=== PATIENT | female | born 1985 | race Caucasian/White ===

== ENCOUNTER 2023-01-25 10:09 | Outpatient (REF) | payer BC, SELFPAY ==
[2023-01-25 11:17] LABS: MANUAL DIFF FLAG NO
[2023-01-25 11:48] LABS: Basophils Percent Auto 0.3 % (0-2); Eosinophils Absolute Auto 0.1 X10*3/uL (0.0-0.4); Eosinophils Percent Auto 1.2 % (0-4); Hematocrit 42.6 % (37.0-47.0); Hemoglobin 14.6 g/dl (12.0-16.0); Imm Gran Abs Auto 0.06 X10*3/uL (0.00-0.03); Imm Gran Pct Auto 0.5 % (0.0-0.4); Lymphocytes Absolute Auto 2.8 X10*3/uL (1.2-4.9); Lymphocytes Percent Auto 23.4 % (20-40); Mean Corpuscular HGB Conc 34.3 g/dl (31.0-35.0); Mean Corpuscular Hemoglobin 32.4 pg (27.0-33.0); Mean Corpuscular Volume 94.5 fL (80.0-98.0); Mean Platelet Volume 10.2 fL (9.4-12.3); Monocytes Absolute Auto 0.6 X10*3/uL (0.1-1.2); Monocytes Percent Auto 4.8 % (2-11); Neutrophils Absolute Auto 8.4 x10*3/uL (2.0-8.3); Neutrophils Percent Auto 69.8 % (45-73); Platelet Count 291 X10*3/uL (160-400); Red Blood Count 4.51 X10*6/uL (4.20-5.50); Red Cell Distribution Width 14.2 % (11.0-16.0)
[2023-01-25 12:19] LABS: Alanine Aminotransferase 15 U/L (0-31); Albumin Level 4.1 g/dL (3.5-5.0); Alkaline Phosphatase 85 U/L (39-117); Anion Gap 13 (12-20); Aspartate Amino Transferase 13 U/L (5-31); Bilirubin Total 0.9 mg/dL (0.0-1.0); Blood Urea Nitrogen 14 mg/dL (9-16); Calcium 8.7 mg/dL (8.4-10.2); Carbon Dioxide 22 mmol/L (22-29); Chloride 111 mmol/L (96-108); Cholesterol 204 mg/dL; Estimated Glomerular Filt Rate > 60; Glucose Fasting 93 mg/dL (60-99); HDL Cholesterol 35 mg/dL; LDL Cholesterol Calculated 128 mg/dl; Sodium 142 mmol/L (135-145); Total Protein 6.5 g/dL (6.5-8.0); Triglycerides 209 mg/dL
[2023-01-25 12:20] LABS: TSH reflex Free T4 0.93 uIU/mL (0.32-4.0)
== END 2023-01-25 10:10 | disposition home or self-care (01) ==
LOC: HO.HMGCLDS 10:09
PROVIDERS: PCP Internal Medicine; Visit Provider Internal Medicine
DX: Z00.01 Encounter for general adult medical examination with abnormal findings (principal); R03.0 Elevated blood-pressure reading, without diagnosis of hypertension; E66.09 Other obesity due to excess calories; Z83.49 Family history of other endocrine, nutritional and metabolic diseases
CPT/HCPCS: 36415; 80053; 80061; 84443; 85025

== ENCOUNTER 2023-06-12 11:19 | Outpatient (AMB) | payer BC, SELFPAY ==
--- NOTE | 2023-06-12 11:20 | MHC.OFFVIS ---
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 And has a few days break before she starts again review of her cycles revealed that her March. Came April 15 to April 19 then her April. Came May 03 to May 07 with spotting on the her. Started May 27 and continued to the with spotting on June 01. She had a tubal ligation 15 years ago after the of her daughter in [facility]. She has lived out here for about 9 years she has not had a pelvic exam and Pap smear and that length of time she sees her primary care provider and she has had some elevated blood pressures but today's was okay she is under lot of stress with her 15-year-old daughter who is having behavioral issues and school challenges. She also has questions about whether not she could ever have a baby with IVF. She would like to do something about her periods as they are so challenging. She smokes some days can be half pack on stressful days could be up to a pack a day. Father of her daughter just this year from a thromboembolic event. [facility] Surgical History (Updated 06/12/23 @ 13:12 by Leena Coats CNM) Hx of tubal ligation Family History Daughter Anxiety ADHD Depression Mother Substance use disorder Social History Housing: House Patient Tobacco Use Status: Current everyday Tobacco user Tobacco use type: Cigarette Cigarettes Per Day: 10 e-Cigarette/Vaping Use: Never Used service: No Current occupational status: employed Current occupational exposures/hazards: No Cognitive needs: No Hearing needs: No Vision needs: Yes Female Reproductive History Menstrual Date of last menstrual period: 05/27/23 Total pregnancies: 1 Number of Living Children: 1 Physical Exam Vital Signs: Last Vital Signs BP 118/80 06/12/23 11:21 BMI result Body Mass Index 25.2 Const General: healthy appearing, comfortable, no acute distress, well developed and alert Nutritional Appearance: average body habitus Orientation/consciousness: patient oriented x3 Limitations: no limitations HEENT Head: Yes normocephalic Neck Neck: Yes normal visual inspection Thyroid: Thyroid normal Chest Chest palpation & inspection: normal inspection of the chest Breast/axilla inspection: normal inspection of the breasts and normal inspection of the axillae Breast/axilla palpation: normal palpation of the breasts and normal palpation of the axillae Resp Effort & Inspection: normal respiratory effort GI Inspection: Yes normal to inspection, No Abdominal wall edema and No distended Palpation (GI): Soft to palpation and nontender Other: Completely normal speech speculum and Ballesteros pelvic exam. there is a slight malodor to the discharge. Cervix is multiparous nontender midposition. Uterus is anteverted small mobile nontender adnexa small no masses. General: Yes bladder normal to palpation External Female Exam: normal external appearance and normal appearance of the urethra Speculum Exam - Vagina: normal appearance of the vagina, normal palpation and normal vaginal discharge Speculum Exam - Cervix: normal appearance of the cervix, normal palpation and nontender Bimanual exam- vagina & uterus: normal bimanual exam, normal palpation, uterine size normal, bladder normal to palpation, consistency normal, normal palpation, uterine mobility normal, uterine shape normal, No Cervical tenderness present, non-tender and no cervical motion tenderness Bimanual Exam- Adnexa, other: normal adnexae, no masses, normal and No adnexal tenderness Neuro General: patient oriented x3 Assessment & Plan Assessment & Plan (1) Cervical cancer screening: Code(s): Z12.4 - Encounter for screening for malignant neoplasm of cervix (2) Screen for sexually transmitted diseases: Code(s): Z11.3 - Encounter for screening for infections with a predominantly sexual mode of transmission (3) Abnormal short menstrual cycle: Code(s): N92.6 - Irregular menstruation, unspecified Plan -----Discussed in this visit the following: healthy balanced diet, regular and consistent exercise, getting recommended health screens, doing the best she can for her particular health concerns, kegel exercises, pap smear screening and followup recommendations, mammography screening and SBE, normal changes in cycles in her life stage--- . Discussed her cycle at length discussed the options of control pills and Mirena to both manage the menses she has used Norplant in the past for control so she was familiar with some hormonal methods of control. However she smokes an on some days she is a heavy smoker. She has a lot of stress in her life right now. Discussed her menses at some detail the possible best option at this point is a Mirena IU S which she declined to have written information about could she is fairly well-versed in it. Discussed the importance of insertion with the heaviest days at the beginning of her period. She will call with the beginning of her next period and try to get in for an insertion. Discussed all the many stressors of parenting teenagers and she is exploring her options for her child's educational support. Orders: Orders Bacterial Vaginosis Panel Today Z01.419 - Encounter for gynecological examination (general) (routine) without abnormal findings CT NG by PCR Today Z01.419 - Encounter for gynecological examination (general) (routine) without abnormal findings Pap Smear Today Z01.419 - Encounter for gynecological examination (general) (routine) without abnormal findings Coding Level of Care Code New Pt Prev Care 18-39yr([id number] Diagnoses Cervical cancer screening Z12.4 Screen for sexually transmitted diseases Z11.3 Abnormal short menstrual cycle N92.6
[2023-06-12 11:21] VITALS: BP 118/80; BMI 25.2
== END 2023-06-12 13:37 | disposition home or self-care (01) ==
LOC: HO.HWS 11:19
PROVIDERS: PCP Internal Medicine; Visit Provider Advanced Practice Midwife
DX: Z01.419 Encounter for gynecological examination (general) (routine) without abnormal findings (principal); Z11.3 Encounter for screening for infections with a predominantly sexual mode of transmission; N92.6 Irregular menstruation, unspecified
CPT/HCPCS: 99385

== ENCOUNTER 2023-06-12 11:19 | Outpatient (REF) | payer BC, SELFPAY ==
[2023-06-12 16:29] LABS: CT PCR NOT DETECTED (Not Detect.); NG PCR NOT DETECTED (Not Detect.)
[2023-06-13 10:45] LABS: BV Int Neg Control Negative (Negative); BV Int Pos Control Positive (Positive)
[2023-06-14 21:53] LABS: HPV mRNA E6/E7 rflx Not Detected (Not Detected)
== END 2023-06-12 11:20 | disposition home or self-care (01) ==
LOC: HO.LNP 11:19
PROVIDERS: PCP Internal Medicine; Visit Provider Advanced Practice Midwife
DX: Z01.419 Encounter for gynecological examination (general) (routine) without abnormal findings (principal); Z11.51 Encounter for screening for human papillomavirus (HPV); Z20.2 Contact with and (suspected) exposure to infections with a predominantly sexual mode of transmission
CPT/HCPCS: 0353U; 87480; 87510; 87624; 87660; 88142

== ENCOUNTER 2024-01-29 15:32 | Outpatient (AMB) | payer BC, SELFPAY ==
[2024-01-29 15:36] VITALS: BP 120/78; PULSE 82; O2SAT 98; BMI 23.2
--- NOTE | 2024-01-29 15:36 | A.OFFPC_ITS ---
Vital Signs 01/29/24 15:36 Height 5 ft 4 in Weight 135 lb 4 oz BMI 23.2 BP 120/78 Blood Pressure Location Rt brachial Position Sitting Pulse 82 Pulse Source Pulse Oximeter Pulse Oximetry (%) 98 Oxygen Delivery Method Room Air Intake Visit Reasons: Annual PE Allergies No Known Allergies Allergy (Verified 01/29/24 15:36) Medication List - Last Reconciled 01/29/24 by Nikhil Del Real MD omeprazole 20 mg PO BID 90 days Tobacco use date assessed: 01/29/24 Dental Screening Dental Screen Date: 01/29/24 Did you have a dental visit in the last 12 months?: Yes Did you have a dental problem in the last 6 months where you did not have access to dental care?: No Was dental information given to patient?: Patient has dentist HPI Annual PE HPI Details Physical exam appointment Patient offer no complaints Patient have OBGYN and she is seeing them annually breast exam through OBGYN Lab order placed to be done fasting Last year she had labs her white count was elevated PFSH Surgical History Hx of tubal ligation Family History Daughter Anxiety ADHD Depression Mother Substance use disorder Social History Housing: House Patient Tobacco Use Status: Current everyday Tobacco user Tobacco use type: Cigarette Cigarettes Per Day: 10 e-Cigarette/Vaping Use: Never Used service: No Current occupational status: employed Current occupational exposures/hazards: No Cognitive needs: No Hearing needs: No Vision needs: Yes Questionnaire Thrive Questionnaire Date Thrive assessed: 01/19/23 AUDIT C Alcohol Use Questionnaire (AUDIT-C) 1. How often do you have a drink containing alcohol?: 2-4 times a month 2. How many drinks containing alcohol do you have on a typical day when you are drinking?: 3 or 4 3. How often do you have six or more drinks on one occasion?: Never Total Score: 3 Score Reviewed/Action Taken: Yes LEONOR-7 AMB Questionnaire LEONOR-7 Date LEONOR - 7 assessed: 01/19/23 Source: Developed by Drs. Logan Goodman, Fanta Garcia, Grzegorz Miles and colleagues, with an educational uriel from [employer]. Review of Systems Const Denies chills, Denies fever(s) and Denies headache(s) Eyes Denies blurry vision ENT Denies headache(s), Denies nasal discharge, Denies nasal obstruction, Denies odynophagia and Denies sinus pain Card Denies chest pain at rest and Denies chest pain with activity Resp Denies cough and Denies hemoptysis GI Denies diarrhea, Denies odynophagia, Denies vomiting and Denies hematemesis Reports as per HPI Musc Denies abnormal gait Skin/Breast Reports as per HPI Neuro Denies Neuro-related abnormal movements, Denies Abnormal speech present, Denies abnormal gait, Denies headache(s) and Denies Sensory deficit (Neuro) Psych Denies mood swings and Denies paranoia Endo Reports as per HPI David/Lymph Reports as per HPI Aller/Immun Reports as per HPI Physical exam (Primary Care) Vital Signs: Last Vital Signs Pulse 82 01/29/24 15:36 BP 120/78 01/29/24 15:36 Pulse Ox 98 01/29/24 15:36 Oxygen Delivery Method Room Air 01/29/24 15:36 BMI result Body Mass Index 23.2 Tobacco/Smoking Status: Tobacco use Status Tobacco use date assessed 01/29/24 01/29/24 15:38 Patient Tobacco Use Status Current everyday Tobacco 01/29/24 15:38 Tobacco use type Cigarette 01/29/24 15:38 e-Cigarette/Vaping Use Never Used 01/29/24 15:38 Thrive Assessment: Date of Thrive Assessment Date Thrive assessed 01/19/23 01/29/24 15:38 Const General: cooperative, comfortable and no acute distress Orientation/consciousness: patient oriented x3 HENMT Head: Yes normocephalic and Yes atraumatic Eyes General: appearance normal, both eyes and all related structures Pupils: Equal, round and reactive pupils present EOM: EOMs intact bilaterally Neck Neck: Yes supple and No lymphadenopathy Thyroid: Thyroid normal Lymphatic: no lymphadenopathy noted Resp Effort & Inspection: normal respiratory effort and able to speak in complete sentences Auscultation: clear to auscultation bilaterally Cardio Heart sounds: S1 normal heart sound present and S2 normal heart sound present GI Palpation (GI): Soft to palpation and nontender Auscultation: normal bowel sounds General: Yes no CVA tenderness Back/Spine/Pelvis Back: no CVA tenderness Skin General skin exam: elasticity normal and turgor normal Neuro General: patient oriented x3 and gait normal Cranial nerves: Yes Equal, round and reactive pupils present Speech: No Abnormal speech present Sensory Exam: No Sensory deficit (Neuro) Coordination: tandem gait normal and Romberg test negative Extrem General: Yes normal exam except as noted and No edema Assessment and Plan Assessment & Plan (1) Encounter for general adult medical examination with abnormal findings: Code(s): Z00.01 - Encounter for general adult medical examination with abnormal findings (2) Leukocytosis: Code(s): D72.829 - Elevated white blood cell count, unspecified Qualifiers: Leukocytosis type: other Qualified Code(s): D72.828 - Other elevated white blood cell count Plan Physical exam appointment Patient offer no complaints Patient have OBGYN and she is seeing them annually breast exam through OBGYN Lab order placed to be done fasting Last year she had labs her white count was elevated Orders: Orders 2 Complete Blood Count Auto Diff Today D72.829 - Elevated white blood cell count, unspecified, Z00.01 - Encounter for general adult medical examination with abnormal findings Lipid Panel Today D72.829 - Elevated white blood cell count, unspecified, Z00.01 - Encounter for general adult medical examination with abnormal findings Comprehensive [place]. Panel Fast Today D72.829 - Elevated white blood cell count, unspecified, Z00.01 - Encounter for general adult medical examination with abnormal findings Coding Level of Care Code Est Pt Prev Care 18-39y([id number]) Diagnoses Encounter for general adult medical examination with abnormal findings Z00.01 Other elevated white blood cell (WBC) count D72.828 Leukocytosis type: other
== END 2024-01-29 15:54 | disposition home or self-care (01) ==
PROVIDERS: Visit Provider Internal Medicine
DX: Z00.01 Encounter for general adult medical examination with abnormal findings (principal); D72.828 Other elevated white blood cell count
CPT/HCPCS: 99395

== ENCOUNTER 2024-02-22 09:58 | Outpatient (REF) | payer BC, SELFPAY ==
[2024-02-22 13:30] LABS: MANUAL DIFF FLAG NO
[2024-02-22 13:38] LABS: Basophils Percent Auto 0.3 % (0-2); Eosinophils Absolute Auto 0.1 X10*3/uL (0.0-0.4); Eosinophils Percent Auto 0.8 % (0-4); Hematocrit 44.4 % (37.0-47.0); Hemoglobin 15.2 g/dl (12.0-16.0); Imm Gran Abs Auto 0.06 X10*3/uL (0.00-0.03); Imm Gran Pct Auto 0.4 % (0.0-0.4); Lymphocytes Absolute Auto 2.2 X10*3/uL (1.2-4.9); Lymphocytes Percent Auto 14.6 % (20-40); Mean Corpuscular HGB Conc 34.2 g/dl (31.0-35.0); Mean Corpuscular Hemoglobin 32.4 pg (27.0-33.0); Mean Corpuscular Volume 94.7 fL (80.0-98.0); Mean Platelet Volume 10.2 fL (9.4-12.3); Monocytes Absolute Auto 0.9 X10*3/uL (0.1-1.2); Monocytes Percent Auto 5.7 % (2-11); Neutrophils Absolute Auto 11.7 x10*3/uL (2.0-8.3); Neutrophils Percent Auto 78.2 % (45-73); Platelet Count 305 X10*3/uL (160-400); Red Blood Count 4.69 X10*6/uL (4.20-5.50); Red Cell Distribution Width 14.6 % (11.0-16.0); White Blood Count 14.9 X10*3/uL (4.8-10.8)
[2024-02-22 13:53] LABS: Alanine Aminotransferase 16 U/L (0-31); Albumin Level 4.5 g/dL (3.5-5.0); Alkaline Phosphatase 82 U/L (39-117); Anion Gap 12 (12-20); Aspartate Amino Transferase 13 U/L (5-31); Bilirubin Total 0.4 mg/dL (0.0-1.0); Blood Urea Nitrogen 15 mg/dL (9-16); Calcium 9.4 mg/dL (8.4-10.2); Carbon Dioxide 23 mmol/L (22-29); Chloride 109 mmol/L (96-108); Cholesterol 179 mg/dL (<200); Estimated Glomerular Filt Rate > 60; Glucose Fasting 106 mg/dL (60-99); HDL Cholesterol 40 mg/dL (>40); LDL Cholesterol Calculated 121 mg/dL (<100); Sodium 140 mmol/L (135-145); Total Protein 7.6 g/dL (6.5-8.0); Triglycerides 90 mg/dL (<150)
== END 2024-02-22 09:59 | disposition home or self-care (01) ==
LOC: HO.HMGCLDS 09:58
PROVIDERS: PCP Internal Medicine; Visit Provider Internal Medicine
DX: Z00.01 Encounter for general adult medical examination with abnormal findings (principal); D72.829 Elevated white blood cell count, unspecified
CPT/HCPCS: 36415; 80053; 80061; 85025

== ENCOUNTER 2024-02-28 07:08 | Outpatient (AMB) | payer BC, SELFPAY ==
--- NOTE | 2024-02-28 09:13 | MHC.PC.OV ---
Intake Visit Reasons: Discuss Lab Results~ [phone] Allergies No Known Allergies Allergy (Verified 02/28/24 09:13) Medication List - Last Reconciled 02/28/24 by Nikhil Del Real MD omeprazole 20 mg PO BID 90 days Tobacco use date assessed: 02/28/24 Dental Screening Dental Screen Date: 02/28/24 Did you have a dental visit in the last 12 months?: Yes Did you have a dental problem in the last 6 months where you did not have access to dental care?: No Was dental information given to patient?: Patient has dentist HPI Discuss Lab Results~ [phone] HPI Details Patient is 38-year-old female this is a telemedicine conference to go over labs Her CBC came back with normal hemoglobin, white count is slightly elevated, we discussed the significance of that We will continue to monitor that Kidney functions are intact her fasting sugar came back at 106 Patient does have a family history of diabetes I would recommend at that time to be careful about eating habits and exercise regularly and maintain ideal body weight I did offer her dietitian consultation which she has declined at this time Liver functions are intact I do see that thyroid test is missing I have ordered that, patient was notified to have that done at her convenience. PFSH Surgical History Hx of tubal ligation Family History Daughter Anxiety ADHD Depression Mother Substance use disorder Social History Housing: House Patient Tobacco Use Status: Current everyday Tobacco user Tobacco use type: Cigarette Cigarettes Per Day: 10 e-Cigarette/Vaping Use: Never Used service: No Current occupational status: employed Current occupational exposures/hazards: No Cognitive needs: No Hearing needs: No Vision needs: Yes Questionnaire Thrive Questionnaire Date Thrive assessed: 01/19/23 AUDIT C Alcohol Use Questionnaire (AUDIT-C) 1. How often do you have a drink containing alcohol?: 2-4 times a month 2. How many drinks containing alcohol do you have on a typical day when you are drinking?: 3 or 4 3. How often do you have six or more drinks on one occasion?: Never Total Score: 3 Score Reviewed/Action Taken: Yes LEONOR-7 AMB Questionnaire LEONOR-7 Date LEONOR - 7 assessed: 01/19/23 Source: Developed by Drs. Logan Goodman, Fanta Garcia, Grzegorz Miles and colleagues, with an educational uriel from [employer]. Review of Systems Const Denies chills and Denies fever(s) ENT Denies epistaxis and Denies nasal discharge Card Denies chest pain Resp Denies chest congestion, Denies cough and Denies hemoptysis GI Denies diarrhea and Denies nausea Skin/Breast Denies rash Neuro Reports no additional complaints Psych Reports no additional complaints Endo Reports no additional complaints Physical exam (Primary Care) Tobacco/Smoking Status: Tobacco use Status Tobacco use date assessed 02/28/24 02/28/24 09:14 Patient Tobacco Use Status Current everyday Tobacco 02/28/24 09:14 Tobacco use type Cigarette 02/28/24 09:14 e-Cigarette/Vaping Use Never Used 02/28/24 09:14 Thrive Assessment: Date of Thrive Assessment Date Thrive assessed 01/19/23 02/28/24 09:14 Telehealth Telehealth Telehealth Platform: [employer] Location of provider rendering services: practice address Location of patient: address on file Patient Identification confirmed using: Name, : Yes Telehealth method: voice only Patient verbally consented to treatment: Yes Patient verbally consented to billing insurance company: Yes Patient informed of any privacy concerns related to visit: Yes Minutes spent on Phone/Video with Pt.: 13 Assessment and Plan Assessment & Plan (1) Intolerance to cold: Code(s): R68.89 - Other general symptoms and signs (2) Impaired fasting blood sugar: Code(s): R73.01 - Impaired fasting glucose Plan Patient is 38-year-old female this is a telemedicine conference to go over labs Her CBC came back with normal hemoglobin, white count is slightly elevated, we discussed the significance of that We will continue to monitor that Kidney functions are intact her fasting sugar came back at 106 Patient does have a family history of diabetes I would recommend at that time to be careful about eating habits and exercise regularly and maintain ideal body weight I did offer her dietitian consultation which she has declined at this time Liver functions are intact I do see that thyroid test is missing I have ordered that, patient was notified to have that done at her convenience. As patient is complaining of feeling cold all the time Orders: Orders TSH reflex Free T4 Today R68.89 - Other general symptoms and signs Coding Level of Care Code Tele Est Pt Level 3 (43427) Diagnoses Intolerance to cold R68.89 Impaired fasting blood sugar R73.01
== END 2024-02-28 11:50 | disposition home or self-care (01) ==
LOC: HO.HMGC 07:08
PROVIDERS: PCP Internal Medicine; Visit Provider Internal Medicine
DX: R68.89 Other general symptoms and signs (principal); R73.01 Impaired fasting glucose
CPT/HCPCS: 99442

== ENCOUNTER 2024-11-21 14:24 | Outpatient (REF) | payer BC, SELFPAY ==
--- OUTSIDE RECORDS SUMMARY | 2024-11-21 14:27 | XMS_ITS | Clinical Summary ---
Author Organization [facility] Address [address] [place] [address] Care Team Providers Care Ticket Speculator Name Role Phone Unknown Pcp, Non Rmg Primary Care Provider Unava ilable Allergies No known active allergies Medications Gatifloxacin 0.5 % SolutionIndications :Acute bacterial conjunctivitis of left eye 1 drop in the left eye four times a day for 7 days. 1 Bottle 0 4 Active Ofloxacin 0.3 % Solution 4 drops on affected ear TID for 3 days 1 Bottle 0 4 Active Active Problems Problem Noted Date Diagnosed Date Marijuana smoker 06/09/2014 Ear injury 06/09/2014 Smoking 02/25/2013 Menorrhagia 02/12/2013 Immunizations Name Administration Dates Next Due PPV23 (Pneumovax) 06/09/2014 Tdap 06/09/2014 Family History Medical History Relation Name Comments Diabetes Maternal grandmother Hypertension Maternal grandmother Lipid/Cholesterol Abnormality Maternal grandmother Relation Name Status Comments Maternal grandmother Social History Tobacco Use Types Packs/Day Years Used Date Smoking Tobacco: Every Day Cigarettes 0.5 16 Smokeless Tobacco: Never Tobacco Cessation:Ready to Q uit: Yes; Counseling Given: Yes Comments:less than half ppd, started at age of 10 Alcohol Use Standard Drinks/Week Comments Yes 0 (1 standard drink = 0.6 oz pure alcohol) socially weekend 3-4 drinks (vodka) Comments No Sex and Gender Information Value Date Recorded Sex Assigned at Not on file Legal Sex Female 12:02 PM EDT Gender Identity Not on file Sexual Orientation Not on file Occupation Industry Job Start Date Job End Date [employer] Not on file Not on yung e Not on file Last Filed Vital Signs Vital Sign Reading Time Taken Comments Blood Pressure 123/80 06/09/2014 2:13 PM EDT right arm - regular size cuff Pulse 92 06/09/2014 2:13 PM EDT Temperature 37 ??C (98.6 ??F) 02/25/2013 2:3 2 PM EDT Respiratory Rate - - Oxygen Saturation - - Inhaled Oxygen Concentration - - Weight 56.7 kg (125 lb) 06/09/2014 2:13 PM EDT Height 157.5 cm (5' 2 ) 06/09/2014 2:13 PM EDT Body Mass Index 22.86 06/09/2014 2:13 PM EDT Plan of Treatment Health Maintenance Due Date Last Done Comments Hep B (1 of 3 - 19+ 3-dose series) 2003 Pap Smear 06/09/2017 06/09/2014, 02/12/2013 DTaP/Tdap/Td (2 - Td or Tdap) 06/09/2024 06/09/2014 COVID-19 Vaccine (1 - 2023-2 5 season) 2024 Influenza (#1) 2024 Mammogram/Breast Imaging 2024 Zoster (Shingrix) (1 of 2) 2034 Hepatitis C Screening Completed 05/15/2014 Pneumococcal Aged Out 06/09/2014 No longer eligi ble based on patient's age to complete this topic HPV Vaccine Aged Out No longer eligi ble based on patient's age to complete this topic Hep A Aged Out No longer eligi ble based on patient's age to complete this topic Hib Aged Out No longer eligi ble based on patient's age to complete this topic Meningococcal ACWY Aged Out No longer eligible based on patient's age to complete this topic Procedures * Due to [place] [employer] law, this organization might not be sharing negative HIV tests. Procedure Name Priority Date/Time Associated Diagnosis Comments SUREPATH FPGS PAP REFLEX HPV Routine 06/09/2014 2:30 PM EDT HEPATITIS C AB WITH REFLEX TO RNA PCR, SERUM Routine 05/15/2014 1:18 PM EDT Screening examination for sexually transmitted disease from Last 3 Months or Most Recently Relevant to Health Maintenance Results * Due to [place] [employer] law, this organization might not be sharing negative HIV tests. * SUREPATH??FPGS PAP??REFLEX HPV (06/09/2014 2:30 PM EDT) Clinical information NONE GIVEN [facility] Comment:{CLINICAL INFORMATIO N: {[id number]) Date last menstrual period [id number] [facility] Comment:{LMP: {[id number]) Date of previous PAP smear NONE GIVEN [facility] Comment:{PREV. PAP: {[id number]) Date of previous biopsy NONE GIVEN [facility] Comment:{PREV. BX: {[id number]) Specimen source (Cvx/Vag) Vagina, Cervix, Endocervix [facility] Comment:{SOURCE: {[id number]) Statement of Adequacy (Cvx/Vag) Satisfactory for evaluation. Endocervical/trans formation zone component present. [facility] Comment:{STATEMENT OF ADEQUA CY: {[id number]) Cytology, Pap Smear Negative for intraepithelial lesion or malignancy. [facility] Comment:{INTERPRETATION/RESU LT: {[id number]) Cytology study comment (Cvx/Vag) This Pap test has been evaluated with computer assisted technology. [facility] Comment:{COMMENT: {[id number]) Lens Inserter (Cvx/Vag) MSM, CT(ASCP) [facility] Comment:{INDUSTRIAL GAS SERVICER: { [id number]) 06/09/2014 2:30 PM EDT 06/10/2014 1:09 AM EDT us Za Guerrero MD PATHOLOGY-INTERFACED Final Resu lt [facility] [address] [place] [address] * HEPATITIS C ANTIBODY, SERUM (05/15/2014 1:18 PM EDT) Hepatitis C virus Ab NON-REACTI VE NON-REACT CANDICE [facility] Comment:{HEPATITIS C ANTIBOD Y {[id number]) Hepatitis C virus Ab Signal/Cutoff 0.03 <1.00 [facility] Comment:{SIGNAL TO CUT-OFF { [id number]) 05/15/2014 1:18 PM EDT 05/15/2014 10:26 PM EDT Narrative Resulting Agency Comment [id number] Lea Klein MD LABORATORY Final Result [facility] [address] [place] [address] from Last 3 Months or Most Recently Relevant to Health Maintenance Insurance * Guarantor: LUNA DE PAZ Account Type Relation to Patient Date of Phone Billing Address Personal/Family [address] [address] [facility] Care Teams Ticket Speculator Relationship Specialty Start Date End Date Unknown Pcp, Non Rmg PCP - General 02/04/16
--- OUTSIDE RECORDS SUMMARY | 2024-11-21 14:27 | XMS_ITS | Encounter Summary ---
Author Organization [facility] Address [address] [place] [address] Care Team Providers Care Diamond Blender Name Role Phone Lea Klein MD Primary Care Provider [phone] Za Guerrero MD Primary Care Provider [phone] Unknown Pcp, Non [facility] Primary Care Provider Unava ilable Encounter Details Date Type Department Care Team ([facility] st Contact Info) Description 05/15/2014 Orders Only [facility] Internal Medicine [address] [place] [address] Lea Klein MD [facility] [address] [place] [address] Social History Tobacco Use Types Packs/Day Years Used Date Smoking Tobacco: Every Day Cigarettes Comments:less than half ppd, started at age of 10 Alcohol Use Standard Drinks/Week Comments Yes 0 (1 standard drink = 0.6 oz pure alcohol) once on weekend 3-4 drinks (vodka) Comments No Sex and Gender Information Value Date Recorded Sex Assigned at Not on file Legal Sex Female 12:02 PM EDT Gender Identity Not on file Sexual Orientation Not on file documented as of this encounter Progress Notes * Ely Michael - 05/22/2014 5:04 PM EDTQuick Note: Pt has npp 06/09/14 * Ely Michael - 05/18/2014 3:04 PM EDTQuick Note: Called pt to schedule npp. lmovm for pt to return my call. * Za Guerrero - 05/18/2014 1:26 PM EDTQuick Note: Book NPP - Thanks * Susie Ty - 05/18/2014 1:11 PM EDTQuick Note: New pcp is Dr Guerrero . Results sent to new pcp documented in this encounter Plan of Treatment Not on file documented as of this encounter Procedures * Due to [place] state law, this organization might not be sharing negative HIV tests. Procedure Name Priority Date/Time Associated Diagnosis Comments URINALYSIS, DIP ONLY STAT (All results called to provider) 05/15/2014 1:43 PM EDT Urinary tract infection HEPATITIS B SURFACE ANTIGEN Routine 05/15/2014 1:18 PM EDT Screening examination for sexually transmitted disease CULTURE, URINE, ROUTINE Routine 05/15/20 14 1:18 PM EDT Urinary tract infection HEPATITIS C AB WITH REFLEX TO RNA PCR, SERUM Routine 05/15/2014 1:18 PM EDT Screening examination for sexually transmitted disease HEPATITIS B SURFACE ANTIBODY, QUANTITATIVE (FOR IMMUNITY) Routine 05/15/2014 1:18 PM EDT Screening examination for sexually transmitted disease RPR, (RAPID PLASMIN REAGIN) WITH REFLEX TO FTA, DIAGNOSTIC Routine 05/15/2014 1:18 PM EDT Screening examination for sexually transmitted disease CBC INCLUDES DIFFERENTIAL AND PLATELET COUNT Routine 05/15/2014 1:18 PM EDT Leukocytosis ALANINE AMINOTRANSFERASE (ALT), SERUM Routine 05/15/2014 1:18 PM EDT Screening for lipoid disorders ASPARTATE AMINOTRANSFERASE (AST), SERUM Routine 05/15/2014 1:18 PM EDT Screening for lipoid disorders URINALYSIS, MICROSCOPIC Routine 05/15/20 14 1:18 PM EDT Urinary tract infection BASIC METABOLIC PANEL WITH (GFR) Routine 05/15/2014 1:18 PM EDT Screening for diabetes mellitus documented in this encounter Results * Due to [place] state law, this organization might not be sharing negative HIV tests. * (ABNORMAL) URINALYSIS, DIP ONLY ( SITE STAT ONLY) (05/15/2014 1:43 PM EDT) COLOR (URINE) DUSTIN(A) [facility] (CLIA# [id number]) APPEARANCE (URINE) TURBID(A) [facility] (CLIA# [id number]) SPECIFIC GRAVITY 1.025 1.001 - 1.035 [facility] (CLIA# [id number]) PH (URINE) 6.5 5.0 - 8.0 [facility] (CLIA# [id number]) PROTEIN (URINE) 2+(A) Neg [facility] (CLIA# [id number]) GLUCOSE (URINE) NEGATIVE Neg [facility] (CLIA# [id number]) Ketones (Urine) NEGATIVE Neg [facility] (CLIA# [id number]) BILIRUBIN (URINE) NEGATIVE Neg [facility] (CLIA# [id number]) BLOOD (URINE) 3+(A) Neg [facility] (CLIA# [id number]) WBC (URINE) 3+(A) Neg [facility] (CLIA# [id number]) NITRITE (URINE) POSITIVE(A) Neg [facility] (CLIA# [id number]) Urine specimen (specimen) 05/15/2014 1:43 PM EDT Lea Klein MD LAB SAME DAY RESULT Final Res ult [facility] (CLIA# [id number]) [address] [place] [address] * (ABNORMAL) CULTURE, URINE, ROUTINE (05/15/2014 1:18 PM EDT) Bacteria culture (Urine) SEE NOTE(A) [facility] Comment: {CULTURE, URINE, ROUTINE {[id number]) ??CULTURE, URINE, ROUTINE ??MICRO NUMBER: ?[id number] ??TEST STATUS: ? FINAL ??SPECIMEN SOURCE: ?? URINE ??SPECIMEN QUALITY: ??ADEQUATE ??RESULT: ?Greater than 100,000 CFU/mL of Proteus mirabilis ? This organism may show imipenem resistance by ? mechanisms other than a carbapenemase. ?P.mirabilis ?INT ?? GALA ?? AMOX/CLAVULANATE ? S ? <=2 ?? AMPICILLIN ? S ? <=2 ?? AMP/SULBACTAM ?S ? <=2 ?? CEFAZOLIN ?S ? <=4 ?? CEFEPIME ? S ? <=1 ?? CEFTRIAXONE ?S ? <=1 ?? CIPROFLOXACIN ?S ? <=0.25 ?? ERTAPENEM ?S ? <=0.5 ?? GENTAMICIN ? S ? <=1 ?? IMIPENEM ? I ? 2 ?? LEVOFLOXACIN ? S ? <=0.12 ?? NITROFURANTOIN ? R ? 128 ?? PIP/TAZOBACTAM ? S ? <=4 ?? TOBRAMYCIN ? S ? <=1 ?? TRIMETHOPRIM/SULFA ? S ? <=20 S=Susceptible ??I=Intermediate ??R=Resistant ??* = Not Tested NR = Not Reported ??NN = See Therapy Comments 05/15/2014 1:18 PM EDT 05/15/2014 10:26 PM EDT Narrative Resulting Agency Comment [id number] Lea Klein MD LABORATORY Final Result [facility] [address] [place] [address] * (ABNORMAL) URINALYSIS, MICROSCOPIC (05/15/2014 1:18 PM EDT) WBC (Urine) PACKED(A) < OR = 5 /HPF [facility] Comment:{WBC {[id number]) RBC (Urine Sed) 20-40(A) < OR = 3 /HPF [facility] Comment:{RBC {[id number]) Epithelial cells.squamous (Urine sed) 0-5 < OR = 5 /HPF [facility] Comment:{SQUAMOUS EPITHELIAL CELLS {[id number]) Bacteria (Urine) MANY(A) NONE SEEN /HPF [facility] Comment:{BACTERIA {[id number]) Amorphous sediment (Urine sed) FEW NONE OR FEW /HPF [facility] Comment:{AMORPHOUS SEDIMENT {[id number]) Hyaline casts (Urine sed) NONE SEEN NONE SEEN /LPF [facility] Comment:{HYALINE CAST {[id number]) 05/15/2014 1:18 PM EDT 05/15/2014 10:26 PM EDT Narrative Resulting Agency Comment [id number] Lea Klein MD LAB SAME DAY RESULT Final Res ult Performing Organization Address [facility] de Phone Number [facility] [address] [place] [address] * RPR, (RAPID PLASMIN REAGIN) WITH REFLEX TO FTA, DIAGNOSTIC (05/15/2014 1:18 PM EDT) Reagin Ab NON-REACT CANDICE NON-REACT CANDICE [facility] Comment:{RPR (DX) W/REFL TIT ER AND CONFIRMATORY TESTING {[id number]) 05/15/2014 1:18 PM EDT 05/15/2014 10:26 PM EDT Narrative Resulting Agency Comment [id number] Lea Klein MD LABORATORY Final Result Performing Organization Address [facility] de Phone Number [facility] [address] [place] [address] * HEPATITIS B SURFACE ANTIBODY, QUANTITATIVE (05/15/2014 1:18 PM EDT) Hepatitis B virus surface Ab 717 mIU/mL [facility] Comment: {HEPATITIS B SURFACE ANTIBODY (QUANT) {[id number]) Patient has immunity to hepatitis B virus. Effective March 02, 2014 this test is being performed using the [employer] Chemiluminesence method. Quantitative results from this method should not be used interchangeably with other methods. 05/15/2014 1:18 PM EDT 05/15/2014 10:26 PM EDT Narrative Resulting Agency Comment [id number] Lea Klein MD LABORATORY Final Result Performing Organization Address [facility]/ZIP Co de Phone Number [facility] [address] [place] [address] * HEPATITIS B SURFACE ANTIGEN (05/15/2014 1:18 PM EDT) Hepatitis B virus surface Ag NON-REACTI VE NON-REACT CANDICE [facility] Comment:{HEPATITIS B SURFACE ANTIGEN {[id number]) 05/15/2014 1:18 PM EDT 05/15/2014 10:26 PM EDT Narrative Resulting Agency Comment [id number] Lea Klein MD LABORATORY Final Result Performing Organization Address City/[facility] Co de Phone Number [facility] [address] [place] [address] * HEPATITIS C ANTIBODY, SERUM (05/15/2014 1:18 PM EDT) Hepatitis C virus Ab NON-REACTI VE NON-REACT CANDICE [facility] Comment:{HEPATITIS C ANTIBOD Y {[id number]) Hepatitis C virus Ab Signal/Cutoff 0.03 <1.00 [facility] Comment:{SIGNAL TO CUT-OFF { [id number]) 05/15/2014 1:18 PM EDT 05/15/2014 10:26 PM EDT Narrative Resulting Agency Comment [id number] Lea Klein MD LABORATORY Final Result Performing Organization Address [facility] Co de Phone Number [facility] [address] [place] [address] * ASPARTATE AMINOTRANSFERASE (AST), SERUM (05/15/2014 1:18 PM EDT) AST (SGOT) 12 10 - 30 U/L [facility] Comment:{AST {[id number]) 05/15/2014 1:18 PM EDT 05/15/2014 10:26 PM EDT Narrative Resulting Agency Comment [id number] Lea Klein MD LAB SAME DAY RESULT Final Res ult Performing Organization Address City/[facility] Co de Phone Number [facility] [address] [place] [address] * ALANINE AMINOTRANSFERASE (ALT), SERUM (05/15/2014 1:18 PM EDT) ALT (SGPT) 12 6 - 29 U/L [facility] Comment:{ALT {[id number]) 05/15/2014 1:18 PM EDT 05/15/2014 10:26 PM EDT Narrative Resulting Agency Comment [id number] Lea Klein MD LAB SAME DAY RESULT Final Res ult [facility] [address] [place] [address] * (ABNORMAL) CBC INCLUDES DIFFERENTIAL AND PLATELET COUNT (05/15/2014 1:18 PM EDT) WBC 15.0(H) 3.8 - 10.8 Thousand/ uL [facility] Comment:{WHITE BLOOD CELL CO UNT {[id number]) RBC 4.71 3.80 - 5.10 Million/u L [facility] Comment:{RED BLOOD CELL COUN T {[id number]) Hemoglobin 15.2 11.7 - 15.5 g/dL [facility] Comment:{HEMOGLOBIN {[id number]) Hematocrit 45.7(H) 35.0 - 45.0 % [facility] Comment:{HEMATOCRIT {[id number]) MCV 97.1 80.0 - 100.0 fL [facility] Comment:{MCV {[id number]) MCH 32.3 27.0 - 33.0 pg [facility] Comment:{MCH {[id number]) MCHC 33.3 32.0 - 36.0 g/dL [facility] Comment:{MCHC {[id number]) RDW 14.9 11.0 - 15.0 % [facility] Comment:{RDW {[id number]) PLT 268 140 - 400 Thousand/ uL [facility] Comment:{PLATELET COUNT {[id number]) MPV 8.9 7.5 - 11.5 fL [facility] Comment:{MPV {[id number]) Neutrophils # 54495(H) 1500 - 7800 cells/uL [facility] Comment:{ABSOLUTE NEUTROPHIL S {[id number]) Lymphocytes # 2160 850 - 3900 cells/uL [facility] Comment:{ABSOLUTE LYMPHOCYTE S {[id number]) Monocytes # 720 200 - 950 cells/uL [facility] Comment:{ABSOLUTE MONOCYTES {[id number]) Eosinophils # 120 15 - 500 cells/uL [facility] Comment:{ABSOLUTE EOSINOPHIL S {[id number]) Basophils # 45 0 - 200 cells/uL [facility] Comment:{ABSOLUTE BASOPHILS {[id number]) Neutrophils % 79.7 % [facility] Comment:{NEUTROPHILS {[id number]) Lymphocytes % 14.4 % [facility] Comment:{LYMPHOCYTES {[id number]) Monocytes % 4.8 % [facility] Comment:{MONOCYTES {[id number]) Eosinophils % 0.8 % [facility] Comment:{EOSINOPHILS {[id number]) Basophils % 0.3 % [facility] Comment:{BASOPHILS {[id number]) 05/15/2014 1:18 PM EDT 05/15/2014 10:26 PM EDT Narrative Resulting Agency Comment [id number] us Lea Klein MD LAB SAME DAY RESULT Final Res ult [facility] [address] [place] [address] * BASIC METABOLIC PANEL WITH (GFR) (05/15/2014 1:18 PM EDT) Glucose 88 65 - 99 mg/dL [facility] Comment: {GLUCOSE {[id number]) ? Fasting reference interval Urea Nitrogen Blood (BUN) 15 7 - 25 mg/dL [facility] Comment:{UREA NITROGEN (BUN) {[id number]) Creatinine 0.62 0.50 - 1.10 mg/dL [facility] Comment:{CREATININE {[id number]) GFR 122 > OR = 60 mL/min/1. 73m2 [facility] Comment:{eGFR NON-AFR. AMERI CAN {[id number]) GFR () 141 > OR = 60 mL/min/1. 73m2 [facility] Comment:{eGFR AMERIC AN {[id number]) BUN/Creatinine Ratio NOT APPLICABLE 6 - 22 (calc) [facility] Comment:{BUN/CREATININE RATI O {[id number]) Sodium 140 135 - 146 mmol/L [facility] Comment:{SODIUM {[id number]) Potassium 3.9 3.5 - 5.3 mmol/L [facility] Comment:{POTASSIUM {[id number]) Chloride 106 98 - 110 mmol/L [facility] Comment:{CHLORIDE {[id number]) Carbon dioxide 23 19 - 30 mmol/L [facility] Comment:{CARBON DIOXIDE {[id number]) Calcium 9.4 8.6 - 10.2 mg/dL [facility] Comment:{CALCIUM {[id number]) 05/15/2014 1:18 PM EDT 05/15/2014 10:26 PM EDT Narrative [facility] - 05/16/2014 1:54 AM EDT Please note that this estimated GFR does not include an adjustment for the patient's height or weight, and can therefore, be viewed as reliable only for patients with heights between 60 and 72 . More precise quantification using a 24-hour urine sample or height-based algorithm is recommended for patients outside of this range of height and for those individuals with more precise needs for GFR calculation. Resulting Agency Comment [id number] Lea Klein MD LABORATORY Final Result [facility] [address] [place] [address] documented in this encounter Visit Diagnoses Diagnosis Screening for diabetes mellitus Leukocytosis Leukocytosis, unspecified Screening for lipoid disorders Screening examination for sexually transmitted disease Screening examination for venereal disease Urinary tract infection Urinary tract infection, site not specified documented in this encounter Care Teams Diamond Blender Relationship Specialty Start Date End Date Lea Klein MD PCP - General Internal Medicine 01/20/13 05/17/14 Za Guerrero MD PCP - General Internal Medicine 05/18/14 02/03/16 Unknown Pcp, Non [facility] PCP - General 02/04/16 documented as of this encounter
--- OUTSIDE RECORDS SUMMARY | 2024-11-21 14:27 | XMS_ITS | Encounter Summary ---
Author Organization [facility] Address [address] [place] [address] Care Team Providers Care Evaluation Manager Name Role Phone Za Guerrero MD Primary Care Provider [phone] Unknown Pcp, Non Rmg Primary Care Provider Unava ilable Encounter Details Date Type Department Care Team (Late st Contact Info) Description 05/18/2014 Orders Only [facility] [address] [place] [address] Za Guerrero MD [address] [place] [address] Social History Tobacco Use Types Packs/Day Years [...] on file documented as of this encounter Plan of Treatment Not on file documented as of this encounter Visit Diagnoses Not on filedocumented in this encounter Care Teams Evaluation Manager Relationship Specialty Start Date End Date Za Guerrero MD PCP - General Internal Medicine 05/18/14 02/03/16 Unknown Pcp, Non [facility] PCP - General 02/04/16 documented as of this encounter
--- OUTSIDE RECORDS SUMMARY | 2024-11-21 14:27 | XMS_ITS | Encounter Summary ---
Author Organization [facility] Address [address] [place] [address] Care Team Providers Care Hiv Nurse Name Role Phone Unknown Pcp, Non [facility]mg Primary Care Provider Unava ilable Encounter Details Date Type Department Care Team ([facility] st Contact Info) Description 08/15/2016 Orders Only [facility] [address] [place] [address] Unknown Pcp, Non Rmg Social History Tobacco Use Types Packs/Day Years Used Date Smoking Tobacco: Every Day Cigarettes 0.5 16 Smokeless Tobacco: Never Comments:less than half ppd, started at age [...] Not on yung e Not on file documented as of this encounter Plan of Treatment Not on file documented as of this encounter Visit Diagnoses Not on filedocumented in this encounter Care Teams Hiv Nurse Relationship Specialty Start Date End Date Unknown Pcp, Non [facility] PCP - General 02/04/16 documented as of this encounter
--- OUTSIDE RECORDS SUMMARY | 2024-11-21 14:27 | XMS_ITS | Encounter Summary ---
Author Organization [facility] Address [address] [place] [address] Care Team Providers Care Ship Carpenter Name Role Phone Lea Klein MD Primary Care Provider [phone] Za Guerrero MD Primary Care Provider [phone] Unknown Pcp, Non [facility]mg Primary Care Provider Unava ilable Encounter Details Date Type Department Care Team (Late st Contact Info) Description 04/09/2013 [facility] Only [facility] [address] [place] [address] Lea Klein MD [facility] [address] [place] [address] Social History Tobacco Use Types Packs/Day [...] on file documented as of this encounter Results * Due to [place] state law, this organization might not be sharing negative HIV tests. * XRAY HAND MIN 3 VWS - LEFT FC (04/09/2013 1:55 PM EDT) Anatomical Region Laterality Modality UPPER EXTREMITY Radiographic Cherri ging 04/09/2013 2:54 PM EDT Narrative 04/09/2013 2:54 PM EDT Left hand 3 views No bone, joint, or soft tissue abnormality ??is seen. Impression: negative. Procedure Note Stephon Wade MD - 04/09/2013 Left hand 3 views No bone, joint, or soft tissue abnormality is seen. Impression: negative. us Lea Klein MD IMG XRAY NO CONTRAST ORDERABL ES Final Result documented in this encounter Visit Diagnoses Diagnosis Pain of left hand- Primary Pain in limb Pain of left hand Pain in limb documented in this encounter Care Teams Ship Carpenter Relationship Specialty Start Date End Date Lea lKein MD PCP - General Internal Medicine 01/20/13 05/17/14 Za Guerrero MD PCP - General Internal Medicine 05/18/14 02/03/16 Unknown Pcp, Non Rmg PCP - General 02/04/16 documented as of this encounter
--- OUTSIDE RECORDS SUMMARY | 2024-11-21 14:28 | XMS_ITS | Encounter Summary ---
Author Organization [facility] Address [address] [place] [address] Care Team Providers Care Vocational Horticulture Instructor Name Role Phone Za Guerrero MD Primary Care Provider [phone] Unknown Pcp, Non [facility]mg Primary Care Provider Unava ilable Encounter Details Date Type Department Care Team (Late st Contact Info) Description 05/18/2014 Orders Only [facility] Internal Medicine [address] [place] [address] Za Guerrero MD [address] [place] [address] Social History Tobacco Use Types Packs/Day Years [...] on filedocumented in this encounter Care Teams Vocational Horticulture Instructor Relationship Specialty Start Date End Date Za Guerrero MD PCP - General Internal Medicine 05/18/14 02/03/16 Unknown Pcp, Non Rmg PCP - General 02/04/16 documented as of this encounter
--- OUTSIDE RECORDS SUMMARY | 2024-11-21 14:28 | XMS_ITS | Encounter Summary ---
Author Organization [facility] Address [address] [place] [address] Care Team Providers Care Machine I Cutter Name Role Phone Lea Klein MD Primary Care Provider Za Guerrero MD Primary Care Provider [phone] Unknown Pcp, Non [facility] Primary Care Provider Unava ilable Encounter Details Date Type Department Care Team (Late st Contact Info) Description 02/12/2013 Orders Only [facility] Internal Medicine [address] [place] [address] Lea Klein MD [facility] [address] [place] [address] Social History Tobacco Use Types Packs/Day Years Used Date Smoking Tobacco: Every Day Cigarettes Alcohol Use Standard Drinks/Week Comments Yes 0 (1 standard drink = 0.6 oz pur e alcohol) Comments Unknown Sex and Gender Information Value Date Recorded Sex Assigned at Not on file Legal Sex Female 12:02 PM EDT Gender Identity Not on file Sexual Orientation Not on file documented as of this encounter Plan of Treatment Not on file documented as of this encounter Procedures * Due to [place] state law, this organization might not be sharing negative HIV tests. Procedure Name Priority Date/Time Associated Diagnosis Comments CBC INCLUDES DIFFERENTIAL AND PLATELET COUNT Routine 02/12/2013 2:43 PM EDT Menorrhagia HCG, TOTAL, QL Routine 02/12/2013 2:43 PM EDT Menorrhagia THYROID STIMULATING HORMONE (TSH) WITH FREE T4 REFLEX, SERUM Routine 02/12/2013 2:43 PM EDT Menorrhagia documented in this encounter Results * Due to [place] state law, this organization might not be sharing negative HIV tests. * (ABNORMAL) CBC INCLUDES DIFFERENTIAL AND PLATELET COUNT (02/12/2013 2:43 PM EDT) WBC 11.8(H) 3.8 - 10.8 Thousand/ uL [facility] Comment:{WHITE BLOOD CELL CO UNT {[id number]) RBC 4.47 3.80 - 5.10 Million/u L [facility] Comment:{RED BLOOD CELL COUN T {[id number]) Hemoglobin 12.9 11.7 - 15.5 g/dL [facility] Comment:{HEMOGLOBIN {[id number]) Hematocrit 40.8 35.0 - 45.0 % [facility] Comment:{HEMATOCRIT {[id number]) MCV 91.4 80.0 - 100.0 fL [facility] Comment:{MCV {[id number]) MCH 28.9 27.0 - 33.0 pg [facility] Comment:{MCH {[id number]) MCHC 31.6(L) 32.0 - 36.0 g/dL [facility] Comment:{MCHC {[id number]) RDW 16.0(H) 11.0 - 15.0 % [facility] Comment:{RDW {[id number]) PLT 279 140 - 400 Thousand/ uL [facility] Comment:{PLATELET COUNT {[id number]) MPV 9.1 7.5 - 11.5 fL [facility] Comment:{MPV {[id number]) Neutrophils # 9015(H) 1500 - 7800 cells/uL [facility] Comment:{ABSOLUTE NEUTROPHIL S {[id number]) Lymphocytes # 2207 850 - 3900 cells/uL [facility] Comment:{ABSOLUTE LYMPHOCYTE S {[id number]) Monocytes # 460 200 - 950 cells/uL [facility] Comment:{ABSOLUTE MONOCYTES {[id number]) Eosinophils # 94 15 - 500 cells/uL [facility] Comment:{ABSOLUTE EOSINOPHIL S {[id number]) Basophils # 24 0 - 200 cells/uL [facility] Comment:{ABSOLUTE BASOPHILS {[id number]) Neutrophils % 76.4 % [facility] Comment:{NEUTROPHILS {[id number]) Lymphocytes % 18.7 % [facility] Comment:{LYMPHOCYTES {[id number]) Monocytes % 3.9 % [facility] Comment:{MONOCYTES {[id number]) Eosinophils % 0.8 % [facility] Comment:{EOSINOPHILS {[id number]) Basophils % 0.2 % [facility] Comment:{BASOPHILS {[id number]) 02/12/2013 2:43 PM EDT 02/13/2013 1:03 AM EDT Narrative Resulting Agency Comment [id number] Lea Klein MD LAB SAME DAY RESULT Final Res ult Performing Organization Address City/State/[facility] Co de Phone Number [facility] [address] [place] [address] * THYROID STIMULATING HORMONE (TSH) WITH FREE T4 REFLEX, SERUM (02/12/2013 2:43 PM EDT) TSH 0.74 mIU/L [facility] Comment: {TSH W/REFLEX TO FT4 {[id number]) ?Reference Range ?> or = 20 Years ??0.40-4.50 ? Ranges ?First trimester ?0.26-2.66 ?Second trimester ?? 0.55-2.73 ?Third trimester ?0.43-2.91 02/12/2013 2:43 PM EDT 02/13/2013 1:03 AM EDT Narrative Resulting Agency Comment [id number] Lea Klein MD LABORATORY Final Result [facility] [address] [place] [address] * HCG, TOTAL, QL (02/12/2013 2:43 PM EDT) HCG, Qualitative (Screen) NEGATIVE [facility] Comment: {HCG, TOTAL, QL {[id number]) Reference Range Non-: Negative : ? Positive 02/12/2013 2:43 PM EDT 02/13/2013 1:03 AM EDT Narrative Resulting Agency Comment [id number] Lea Klein MD LAB SAME DAY RESULT Final Res ult Performing Organization Address City/[facility]/ZIP Co de Phone Number [facility] [address] [place] [address] documented in this encounter Visit Diagnoses Diagnosis Menorrhagia Excessive or frequent menstruation documented in this encounter Care Teams Machine I Cutter Relationship Specialty Start Date End Date Lea Klein MD PCP - General Internal Medicine 01/20/13 05/17/14 Za Guerrero MD PCP - General Internal Medicine 05/18/14 02/03/16 Unknown Pcp, Non [facility]mg PCP - General 02/04/16 documented as of this encounter
--- OUTSIDE RECORDS SUMMARY | 2024-11-21 14:28 | XMS_ITS | Encounter Summary ---
Author Organization [facility] Address [address] [place] [address] Care Team Providers Care Tax Technician Name Role Phone Lea Klein MD Primary Care Provider [phone] Za Guerrero MD Primary Care Provider [phone] Unknown Pcp, Non Rmg Primary Care Provider Unava ilable Encounter Details Date Type Department Care Team ([facility] st Contact Info) Description 01/21/2013 Orders Only [facility] Internal Medicine [address] [place] [phone] Lea Klein MD [facility] [address] [place] [address] Social History Tobacco Use Types Packs/Day Years Used Date Smoking Tobacco: Never Assessed Comments Unknown Sex and Gender Information Value Date Recorded Sex Assigned at Not on file Legal Sex Female 12:02 PM EDT Gender Identity Not on file Sexual Orientation Not on file documented as of this encounter Plan of Treatment Not on file documented as of this encounter Results * Due to [place] state law, this organization might not be sharing negative HIV tests. * (ABNORMAL) CBC INCLUDES DIFFERENTIAL AND PLATELET COUNT (02/12/2013 2:43 PM EDT) WBC 11.8(H) 3.8 - 10.8 Thousand/ uL [facility] Comment:{WHITE BLOOD CELL CO UNT {[id number]) RBC 4.47 3.80 - 5.10 Million/u L [facility] Comment:{RED BLOOD CELL COUN T {[id number]) Hemoglobin 12.9 11.7 - 15.5 g/dL [facility] Comment:{HEMOGLOBIN {[id number]) Hematocrit 40.8 35.0 - 45.0 % [facility] Comment:{HEMATOCRIT {[id number]) MCV 91.4 80.0 - 100.0 fL [facility] Comment:{MCV {[id number]) MCH 28.9 27.0 - 33.0 pg [facility] Comment:{MCH {[id number]) MCHC 31.6(L) 32.0 - 36.0 g/dL [facility] Comment:{MCHC {[id number]) RDW 16.0(H) 11.0 - 15.0 % [facility] Comment:{RDW {[id number]) PLT 279 140 - 400 Thousand/ uL [facility] Comment:{PLATELET COUNT {[id number]) MPV 9.1 7.5 - 11.5 fL [facility] Comment:{MPV {[id number]) Neutrophils # 9015(H) 1500 - 7800 cells/uL [facility] Comment:{ABSOLUTE NEUTROPHIL S {[id number]) Lymphocytes # 2207 850 - 3900 cells/uL [facility] Comment:{ABSOLUTE LYMPHOCYTE S {[id number]) Monocytes # 460 200 - 950 cells/uL [facility] Comment:{ABSOLUTE MONOCYTES {[id number]) Eosinophils # 94 15 - 500 cells/uL [facility] Comment:{ABSOLUTE EOSINOPHIL S {[id number]) Basophils # 24 0 - 200 cells/uL [facility] Comment:{ABSOLUTE BASOPHILS {[id number]) Neutrophils % 76.4 % [facility] Comment:{NEUTROPHILS {[id number]) Lymphocytes % 18.7 % [facility] Comment:{LYMPHOCYTES {[id number]) Monocytes % 3.9 % [facility] Comment:{MONOCYTES {[id number]) Eosinophils % 0.8 % [facility] Comment:{EOSINOPHILS {[id number]) Basophils % 0.2 % [facility] Comment:{BASOPHILS {[id number]) 02/12/2013 2:43 PM EDT 02/13/2013 1:03 AM EDT Narrative Resulting Agency Comment [id number] Result [facility] Lea Klein MD LAB SAME DAY RESULT Final Res ult Performing Organization Address [facility] de Phone Number [facility] [address] [place] [address] * THYROID STIMULATING HORMONE (TSH) WITH FREE T4 REFLEX, SERUM (02/12/2013 2:43 PM EDT) TSH 0.74 mIU/L [facility] Comment: {TSH W/REFLEX TO FT4 {[id number]) ?Reference Range ?> or = 20 Years ??0.40-4.50 ? Ranges ?First trimester ?0.26-2.66 ?Second trimester ?? 0.55-2.73 ?Third trimester ?0.43-2.91 02/12/2013 2:43 PM EDT 02/13/2013 1:03 AM EDT Narrative Resulting Agency Comment [id number] Result [facility] Lea Klein MD LABORATORY Final Result Performing Organization Address [facility] de Phone Number [facility] [address] [place] [address] * HCG, TOTAL, QL (02/12/2013 2:43 PM EDT) HCG, Qualitative (Screen) NEGATIVE [facility] Comment: {HCG, TOTAL, QL {[id number]) Reference Range Non-: Negative : ? Positive 02/12/2013 2:43 PM EDT 02/13/2013 1:03 AM EDT Narrative Resulting Agency Comment [id number] Lea Klein MD LAB SAME DAY RESULT Final Res ult [facility] [address] [place] [address] documented in this encounter Visit Diagnoses Diagnosis Menorrhagia- Primary Excessive or frequent menstruation documented in this encounter Care Teams Tax Technician Relationship Specialty Start Date End Date Lea Klein MD PCP - General Internal Medicine 01/20/13 05/17/14 Za Guerrero MD PCP - General Internal Medicine 05/18/14 02/03/16 Unknown Pcp, Non Rmg PCP - General 02/04/16 documented as of this encounter
--- OUTSIDE RECORDS SUMMARY | 2024-11-21 14:28 | XMS_ITS | Encounter Summary ---
Author Organization [facility] Address [address] [place] [address] Care Team Providers Care Soldering Machine Feeder Name Role Phone Za Guerrero MD Primary Care Provider [phone] Unknown Pcp, Non Rmg Primary Care Provider Unava ilable Encounter Details Date Type Department Care Team (Late st Contact Info) Description 05/18/2014 Orders Only [facility] Internal Medicine [address] [place] [phone] Lea Klein MD [facility] [address] [place] [id number] Social History Tobacco Use Types Packs/Day Years [...] on filedocumented in this encounter Care Teams Soldering Machine Feeder Relationship Specialty Start Date End Date Za Guerrero MD PCP - General Internal Medicine 05/18/14 02/03/16 Unknown Pcp, Non Rmg PCP - General 02/04/16 documented as of this encounter
--- OUTSIDE RECORDS SUMMARY | 2024-11-21 14:28 | XMS_ITS | Encounter Summary ---
Author Organization [facility] Address [address] [place] [address] Care Team Providers Care Editor News Name Role Phone Za Guerrero MD Primary Care Provider [phone] Unknown Pcp, Non Rmg Primary Care Provider Unava ilable Encounter Details Date Type Department Care Team (Late st Contact Info) Description 06/09/2014 Orders Only [facility] Internal Medicine [address] [place] [phone] Za Guerrero MD [address] [place] [id number] Social History Tobacco Use Types Packs/Day Years Used Date Smoking Tobacco: Every Day Cigarettes 0.5 16 Comments:less than half ppd, started at age [...] Job Start Date Job End Date [employer] Not on file Not on yung e Not on file documented as of this encounter Plan of Treatment Not on file documented as of this encounter Procedures * Due to [place] Disqus law, this organization might not be sharing negative HIV tests. Procedure Name Priority Date/Time Associated Diagnosis Comments PAIN MANAGEMENT PROFILE, URINE (PAINM2) Routine 06/09/2014 3:21 PM EDT Smoking Marijuana smoker Routine general medical examination at a health care facility documented in this encounter Results * Due to [place] Disqus law, this organization might not be sharing negative HIV tests. * (ABNORMAL) PAIN MANAGEMENT PROFILE, URINE (PAINM2) (06/09/2014 3:21 PM EDT) CREATININE 138.1 > or = 20.0 mg/dL [facility] Comment:{Creatinine {[id number]) PH 7.4 4.5 - 9.0 [facility] Comment:{pH {[id number]) OXIDANT NEGATIVE <200 mcg/mL [facility] Comment:{Oxidant {[id number]) Amphetamines (Screen) NEGATIVE <500 ng/mL [facility] Comment:{Amphetamines {[id number]) Barbiturates (Urine) NEGATIVE <300 ng/mL [facility] Comment:{Barbiturates {[id number]) Benzodiazepine And Metabolites, Urine NEGATIVE <100 ng/mL [facility] Comment:{Benzodiazepines {[id number]) Buprenorphine (Suboxone) (Urine) NEGATIVE <5 ng/mL [facility] Comment:{Buprenorphine {[id number]) Benzoylecgonine (Cocaine Metabolite) (Urine) NEGATIVE <150 ng/mL [facility] Comment:{Cocaine Metabolite {[id number]) 6-Monoacetylmorphine (Heroin Metabolite) (Urine) NEGATIVE <10 ng/mL [facility] Comment:{Heroin Metabolite { [id number]) Tetrahydrocannabinol (Urine) POSITIVE(A) <20 ng/mL [facility] Comment:{Marijuana Metabolit e 20 {[id number]) Tetrahydrocannabinol (Urine) 451(H) <5 ng/mL [facility] Comment:{Marijuana Metabolit e {[id number]) MDMA/MDA NEGATIVE <500 ng/mL [facility] Comment:{MDMA/MDA {[id number]) EDDP ( Methadone Metabolite) NEGATIVE <100 ng/mL [facility] Comment:{Methadone Metabolit e {[id number]) Opiates (Urine) NEGATIVE CONFIRMED <100 ng/mL [facility] Comment:{Opiates {[id number]) Codeine (Urine) NEGATIVE <50 ng/mL [facility] Comment:{Codeine {[id number]) Hydrocodone (Urine) NEGATIVE <50 ng/mL [facility] Comment:{Hydrocodone {[id number]) Hydromorphone (Urine) NEGATIVE <50 ng/mL [facility] Comment:{Hydromorphone {[id number]) Morphine (Urine) NEGATIVE <50 ng/mL [facility] Comment:{Morphine {[id number]) Oxycodone (Urine) NEGATIVE <100 ng/mL [facility] Comment:{Oxycodone {[id number]) Phencyclidine (Urine) NEGATIVE <25 ng/mL [facility] Comment:{Phencyclidine {[id number]) Propoxyphene (Urine) NEGATIVE <300 ng/mL [facility] Comment:{Propoxyphene {[id number]) 06/09/2014 3:21 PM EDT 06/09/2014 11:25 PM EDT Za Guerrero MD LABORATORY Final Result [facility] [address] [place] [address] documented in this encounter Visit Diagnoses Diagnosis Smoking Tobacco use disorder Marijuana smoker Cannabis abuse, unspecified Routine general medical examination at a health care facility documented in this encounter Care Teams Editor News Relationship Specialty Start Date End Date Za Guerrero MD PCP - General Internal Medicine 05/18/14 02/03/16 Unknown Pcp, Non Rmg PCP - General 02/04/16 documented as of this encounter
--- OUTSIDE RECORDS SUMMARY | 2024-11-21 14:28 | XMS_ITS | Encounter Summary ---
Author Organization [facility] Address [address] [place] [address] Care Team Providers Care Property Assistant Name Role Phone Za Guerrero MD Primary Care Provider [phone] Unknown Pcp, Non Rmg Primary Care Provider Unava ilable Encounter Details Date Type Department Care Team (Late st Contact Info) Description 06/10/2014 Orders Only [facility] Internal Medicine [address] [place] [phone] Za Guerrero MD [address] [place] [id number] Social History Tobacco Use Types Packs/Day Years [...] Job Start Date Job End Date [employer] Not on file Not on yung e Not on file documented as of this encounter Progress Notes * Za Guerrero - 06/11/2014 7:22 AM EDTQuterry Note: Patient's wbc is coming down, however it is still not at baseline, I recommend repeating CBC in 1 week. pls inform her. documented in this encounter Plan of Treatment Not on file documented as of this encounter Procedures * Due to [place] state law, this organization might not be sharing negative HIV tests. Procedure Name Priority Date/Time Associated Diagnosis Comments CBC INCLUDES DIFFERENTIAL AND PLATELET COUNT Routine 06/10/2014 11:02 AM EDT Routine general medical examination at a health care facility Screening for deficiency anemia LIPID PANEL WITH REFLEX TO DIRECT LDL Routine 06/10/2014 11:02 AM EDT Smoking BASIC METABOLIC PANEL WITH (GFR) Routine 06/10/2014 11:02 AM EDT Routine general medical examination at a health care facility documented in this encounter Results * Due to [place] state law, this organization might not be sharing negative HIV tests. * (ABNORMAL) LIPID PANEL WITH REFLEX TO DIRECT LDL (06/10/2014 11:02 AM EDT) Cholesterol 146 125 - 200 mg/dL [facility] Comment:{CHOLESTEROL, TOTAL {[id number]) HDL Cholesterol 38(L) > OR = 46 mg/dL [facility] Comment:{HDL CHOLESTEROL {[id number]) Triglyceride 106 <150 mg/dL [facility] Comment:{TRIGLYCERIDES {[id number]) LDL Cholesterol 87 <130 mg/dL (calc) [facility] Comment: {LDL-CHOLESTEROL {[id number]) Desirable range <100 mg/dL for patients with CHD or diabetes and <70 mg/dL for diabetic patients with known heart disease. CHOL/HDL Ratio 3.8 < OR = 5.0 (calc) [facility] Comment:{CHOL/HDLC RATIO {[id number]) Cholesterol Non-HDL 108 mg/dL (calc) [facility] Comment: {NON HDL CHOLESTEROL {[id number]) Target for non-HDL cholesterol is 30 mg/dL higher than LDL cholesterol target. 06/10/2014 11:0 2 AM EDT 06/10/2014 7:56 PM EDT Narrative Resulting Agency Comment [id number] us Za Guerrero MD LABORATORY Final Result [facility] [address] [place] [address] * BASIC METABOLIC PANEL WITH (GFR) (06/10/2014 11:02 AM EDT) [facility] Glucose 93 65 - 99 mg/dL [facility] Comment: {GLUCOSE {[id number]) ? Fasting reference interval Urea Nitrogen Blood (BUN) 16 7 - 25 mg/dL [facility] Comment:{UREA NITROGEN (BUN) {[id number]) Creatinine 0.64 0.50 - 1.10 mg/dL [facility] Comment:{CREATININE {[id number]) GFR 121 > OR = 60 mL/min/1. 73m2 [facility] Comment:{eGFR NON-AFR. AMERI CAN {[id number]) GFR () 140 > OR = 60 mL/min/1. 73m2 [facility] Comment:{eGFR AMERIC AN {[id number]) BUN/Creatinine Ratio NOT APPLICABLE 6 - (calc) [facility] Comment:{BUN/CREATININE RATI O {[id number]) Sodium 140 135 - 146 mmol/L [facility] Comment:{SODIUM {[id number]) Potassium 4.1 3.5 - 5.3 mmol/L [facility] Comment:{POTASSIUM {[id number]) Chloride 106 98 - 110 mmol/L [facility] Comment:{CHLORIDE {[id number]) Carbon dioxide 24 19 - 30 mmol/L [facility] Comment:{CARBON DIOXIDE {[id number]) Calcium 9.6 8.6 - 10.2 mg/dL [facility] Comment:{CALCIUM {[id number]) 06/10/2014 11:0 2 AM EDT 06/10/2014 7:56 PM EDT Narrative [facility] - 06/10/2014 11:00 PM EDT Please note that this estimated GFR [...] needs for GFR calculation. Resulting Agency Comment [id number] us Za Guerrero MD LABORATORY Final Result [facility] [address] [place] [address] * (ABNORMAL) CBC INCLUDES DIFFERENTIAL AND PLATELET COUNT (06/10/2014 11:02 AM EDT) WBC 14.3(H) 3.8 - 10.8 Thousand/ uL [facility] Comment:{WHITE BLOOD CELL CO UNT {[id number]) RBC 4.89 3.80 - 5.10 Million/u L [facility] Comment:{RED BLOOD CELL COUN T {[id number]) Hemoglobin 15.5 11.7 - 15.5 g/dL [facility] Comment:{HEMOGLOBIN {[id number]) Hematocrit 47.9(H) 35.0 - 45.0 % [facility] Comment:{HEMATOCRIT {[id number]) MCV 97.9 80.0 - 100.0 fL [facility] Comment:{MCV {[id number]) MCH 31.7 27.0 - 33.0 pg [facility] Comment:{MCH {[id number]) MCHC 32.3 32.0 - 36.0 g/dL [facility] Comment:{MCHC {[id number]) RDW 14.3 11.0 - 15.0 % [facility] Comment:{RDW {[id number]) PLT 284 140 - 400 Thousand/ uL [facility] Comment:{PLATELET COUNT {[id number]) MPV 9.1 7.5 - 11.5 fL [facility] Comment:{MPV {[id number]) Neutrophils # 78306(H) 1500 - 7800 cells/uL [facility] Comment:{ABSOLUTE NEUTROPHIL S {[id number]) Lymphocytes # 2116 850 - 3900 cells/uL [facility] Comment:{ABSOLUTE LYMPHOCYTE S {[id number]) Monocytes # 601 200 - 950 cells/uL [facility] Comment:{ABSOLUTE MONOCYTES {[id number]) Eosinophils # 186 15 - 500 cells/uL [facility] Comment:{ABSOLUTE EOSINOPHIL S {[id number]) Basophils # 43 0 - 200 cells/uL [facility] Comment:{ABSOLUTE BASOPHILS {[id number]) Neutrophils % 79.4 % [facility] Comment:{NEUTROPHILS {[id number]) Lymphocytes % 14.8 % [facility] Comment:{LYMPHOCYTES {[id number]) Monocytes % 4.2 % [facility] Comment:{MONOCYTES {[id number]) Eosinophils % 1.3 % [facility] Comment:{EOSINOPHILS {[id number]) Basophils % 0.3 % [facility] Comment:{BASOPHILS {[id number]) 06/10/2014 11:0 2 AM EDT 06/10/2014 7:56 PM EDT Narrative Resulting Agency Comment [id number] us Za Guerrero MD LAB SAME DAY RESULT Final Resul t Performing Organization Address City/State/[facility] Co de Phone Number [facility] [address] [place] [address] documented in this encounter Visit Diagnoses Diagnosis Routine general medical examination at a health care facility Screening for deficiency anemia Screening for other and unspecified deficiency anemia Smoking Tobacco use disorder documented in this encounter Care Teams Property Assistant Relationship Specialty Start Date End Date Za Guerrero MD PCP - General Internal Medicine 05/18/14 02/03/16 Unknown Pcp, Non Rmg PCP - General 02/04/16 documented as of this encounter
[2024-11-21 14:54] LABS: Appearance Urine Clear; Color Urine Dark Yellow; Glucose Urine UA Negative (Negative); Leukocyte Esterase Urine Small (1+) (Negative); Nitrite Urine Positive (Negative); Specific Gravity - Urine 1.025 (1.005-1.025); UMIC TRIGGER UACC YES; Urine Blood Moderate (2+) (Negative); Urine Ketones Negative (Negative); Urine Protein 30 (1+) mg/dL (Neg-Trace)
[2024-11-21 15:12] LABS: Bacteria Urine Trace (None Seen); Hyaline Casts Urine 0-2 /LPF (0-2); UACC Culture Trigger YES; WBC Urine 0-5 /HPF (0-5)
== END 2024-11-21 14:25 | disposition home or self-care (01) ==
LOC: HO.LAB 14:24
PROVIDERS: PCP Internal Medicine; Visit Provider Internal Medicine
DX: R35.0 Frequency of micturition (principal); R39.15 Urgency of urination
CPT/HCPCS: 81001; 87086

== ENCOUNTER 2025-03-03 15:32 | Outpatient (AMB) | payer BC, SELFPAY ==
[2025-03-03 15:34] VITALS: BP 122/78; PULSE 103; O2SAT 96; BMI 21.7
--- NOTE | 2025-03-03 15:34 | A.OFFPC_ITS ---
Vital Signs 03/03/25 15:34 Height 5 ft 4 in Weight 126 lb 6 oz BMI 21.7 BP 122/78 Blood Pressure Location Lt brachial Position Sitting Pulse 103 H Pulse Source Pulse Oximeter Pulse Oximetry (%) 96 Oxygen Delivery Method Room Air Intake Visit Reasons: Annual PE Allergies No Known Allergies Allergy (Verified 03/03/25 15:34) Medication List - Last Reconciled 03/03/25 by Nikhil Del Real MD No Known Home Meds Tobacco use date assessed: 03/03/25 Dental Screening Dental Screen Date: 03/03/25 Did you have a dental visit in the last 12 months?: Yes Did you have a dental problem in the last 6 months where you did not have access to dental care?: No Was dental information given to patient?: Patient has dentist HPI Annual PE HPI Details History of Present Illness - The patient is a 39-year-old female pr esenting for a general wellness visit and health maintenance. - The patient has a past medical history of a high fasting blood sugar level noted in February of last year, and she was identified as pre-diabetic at that time. A repeat examination is planned to reassess the fasting sugar level.. 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 . - Occasional constipation is reported, t faisal not an immediate complaint during this visit. - The patient reported dietary modificat ions by avoiding red meat to reduce prior stomach pain, resulting in some relief. Health Maintenance - Discussion and ordering of mammogram s creening as it's due. - Recommendation and order for Pap smear and an POLICE RADIO DISPATCHER appointment. - Evaluation of blood pressure, which wa s noted to be at 122/78 mmHg, deemed favorable. - Discussion on blood tests including CB C, metabolic profile, liver, kidney function, sugar, cholesterol, vitamin D, B12, Thyroid function, and added lupus screening due to family history. - Guidance to perform fasting prior to l aboratory tests. - Due for Tetanus vaccine; administered during visit. 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 - Advised to schedule a repeat physical exam visit annually or earlier if issues arise. 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 - No history of service documen margaret. Diagnostic results - Previous CBC and kidney function tests from last year were normal. - Last recorded fasting blood sugar was elevated, indicating pre-diabetes, and to be reassessed. - Mention of prior blood stress level ev aluation, to be repeated. Patient Instructions - Schedule a mammogram and Pap smear. - Undergo fasting blood tests, avoiding eating for 10 hours prior. - Review thyroid function and lupus scre ening during upcoming lab work. - Book a follow-up POLICE RADIO DISPATCHER visit. - Receive the Tetanus booster vaccine. - Discuss Hepatitis B immunity with jorge garcia and labs. - Maintain lifestyle modifications inclu ding stress management and diet. - Follow-up for any new symptoms or conc erns. Review of Systems - General: No fever no chills - Neurological: No headaches no dizzin ess - Ear nose throat: No sore throat no hearing difficulty no ear pain - Cardiovascular: No syncope, no chest pain, no palpitations - Gastrointestinal: No nausea vomiting or diarrhea - Endocrine: No polyuria polydipsia no heat intolerance - Genitourinary: No dysuria - Skin: No new complaints Physical Exam General: Cooperative, healthy appearing, comfortable, in distress Orientation: Patient oriented x3 Head: Normal to inspection Ears: Hearing loss in the left ear, otherwise within normal limits visually Nose: Normal external nose present Face and sinus: Normal facial exam Eyes: Appearance normal, extraocular movement intact pupils reactive Neck: Normal visual inspection and supple Respiratory: Normal respiratory effort and able to speak in complete sentences. Clear to auscultation, no stridor Cardiovascular: S1 and S2 RRR, Breast exam declined by the patient GI: Normal to inspection. Soft to palpation and nontender Skin: Turgor normal, no acute findings, mottling of skin noted both arms Neuro: Patient oriented x3, motor sensory intact, balance intact, tandem pass Extremities: Normal to inspection, range of motion intact PFSH Surgical History Hx of tubal ligation Family History Daughter Anxiety ADHD Depression Mother Substance use disorder Social History Housing: House Patient Tobacco Use Status: Current everyday Tobacco user Tobacco use type: Cigarette Cigarettes Per Day: 10 e-Cigarette/Vaping Use: Never Used service: No Current occupational status: employed Current occupational exposures/hazards: No Cognitive needs: No Hearing needs: No Vision needs: Yes Questionnaire PHQ-9 Over the last 2 weeks, how often have you been bothered by any of the following problems? 1. Little interest or pleasure in doing things: not at all 2. Feeling down, depressed, or hopeless: not at all 3. Trouble falling or staying asleep, or sleeping too much: not at all 4. Feeling tired or having little energy: several days 5. Poor appetite or overeating: not at all 6. Feeling bad about yourself - or that you are a failure or have let yourself or your family down: not at all 7. Trouble concentrating on things, such as reading the newspaper or watching television: not at all 8. Moving or speaking so slowly that other people could have noticed. Or the opposite - being so fidgety or restless that you have been moving around a lot more than usual: not at all 9. Thoughts that you would be better off or of hurting yourself in some w ay: not at all Total score: 1 Depression Screening Interpretation: Negative Depression Screening Done: Yes [id number] - PHQ-9 Billing: Yes Source: Developed by Drs. Logan Goodman, Fanta Garcia, Grzegorz Miles and colleagues, with an educational uriel from [email or web address]. Thrive Questionnaire Date Thrive assessed: 03/03/25 I am a: Patient What is your living situation today?: I have a steady place to live Within the past 12 months, did the food you bought not last and you didn't have the money to get more?: Never true Within the past 12 months, did you worry whether your food would run out before you got money to buy more?: Sometimes True Do you have trouble paying for medicines?: No Do you have trouble getting transportation to medical appointments?: No Do you have trouble paying your heating and electricity bill?: Yes Do you have trouble taking care of your child, family member or friend?: No Do you have trouble with day-to-day activities such as bathing, preparing meals, shopping, managing finances, etc.?: No Are you currently unemployed and looking for a job?: No Are you interested in more education?: No Please select the resources that you would like help with: None Currently or been in a relationship where the following occur: No concerns reported THRIVE Score: 2 AUDIT C Alcohol Use Questionnaire (AUDIT-C) 1. How often do you have a drink containing alcohol?: 2-4 times a month 2. How many drinks containing alcohol do you have on a typical day when you are drinking?: 3 or 4 3. How often do you have six or more drinks on one occasion?: Monthly Total Score: 5 Score Reviewed/Action Taken: Yes LEONOR-7 AMB Questionnaire LEONOR-7 Date LEONOR - 7 assessed: 03/03/25 Feeling nervous, anxious, or on edge: 1 = Several days Not being able to stop or control worryin = Not at all Worrying too much about different things: 1 = Several days Trouble relaxin = Several days Being so restless that it is hard to sit still: 1 = Several days Becoming easily annoyed or irritable: 0 = Not at all Feeling afraid as if something awful might happen: 0 = Not at all Total LEONOR-7 score (0-4 normal; 5-9 mild; 10-14 moderate; 15-21 severe): 4 Source: Developed by Drs. Logan Goodman, Fanta Garcia, Grzegorz Miles and colleagues, with an educational uriel from [email or web address]. LEONOR-7 Assessment Billing LEONOR-7 Assessment Tool: LEONOR-7 Assessment 88409 Physical exam (Primary Care) Vital Signs: Last Vital Signs Pulse 103 H 03/03/25 15:34 BP 122/78 03/03/25 15:34 Pulse Ox 96 03/03/25 15:34 Oxygen Delivery Method Room Air 03/03/25 15:34 BMI result Body Mass Index 21.7 Tobacco/Smoking Status: Tobacco use Status Tobacco use date assessed 03/03/25 03/03/25 15:37 Patient Tobacco Use Status Current everyday Tobacco 03/03/25 15:37 Tobacco use type Cigarette 03/03/25 15:37 e-Cigarette/Vaping Use Never Used 03/03/25 15:37 PHQ-9: PHQ-9 Score PHQ-9: Total score 1 03/03/25 16:02 Depression Screening Interpretation: Negative Thrive Assessment: Date of Thrive Assessment Date Thrive assessed 03/03/25 03/03/25 15:37 Currently or been in a relationship where the following occur: No concerns reported Immunizations Boostrix Tdap 2.5 Lf unit-8 mcg-5 Lf/0.5 mL intramuscular syringe Performing Provider: Nikhil Del Real MD Performing Location: [facility] Administered by: James Silvestre CMA on 03/03/25 16:02 Dose Route Admin Location Dispensed Lot Number Expiration Date [facility] Valve Inserter 0.5 mL IM Left Deltoid 0.5 mL [id number] 02/07/27 [id number] [place] VIS Given Date VIS Provided VIS Publication Date 03/03/25 Single Vaccine 21 Eligibility Eligibility Date Funding Source Not [facility] Eligible 03/03/25 Private Coding Level of Care Code Est Pt Level 3 (92237) Est Pt Prev Care 40-64y(73029) Diagnoses Encounter for general adult medical examination with abnormal findings Z00.01 Stress F43.9 Impaired fasting blood sugar R73.01 Immunizations incomplete Z28.39 Additional Codes LEONOR-7 Assessment Billing - LEONOR-7 Assessment Tool: LEONOR-7 Assessment 77274 ([id number]) PHQ-9 - 56899 - PHQ-9 Billing: Yes ([id number]) Assessment & Plan Assessment & Plan (1) Encounter for general adult medical examination with abnormal findings: Code(s): Z00.01 - Encounter for general adult medical examination with abnormal findings Category: Medical (2) Stress: Code(s): F43.9 - Reaction to severe stress, unspecified Category: Medical (3) Impaired fasting blood sugar: Code(s): R73.01 - Impaired fasting glucose Category: Medical (4) Immunizations incomplete: Code(s): Z28.39 - Other underimmunization status Category: Medical Plan History of Present Illness - The patient is a 39-year-old female presenting for a general wellness visit and health maintenance. - The patient has a past medical history of a high fasting blood sugar level noted in February of last year, and she was identified as pre-diabetic at that time. A repeat examination is planned to reassess the fasting sugar level.. 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 . - Occasional constipation is reported, though not an immediate complaint during this visit. - The patient reported dietary modifications by avoiding red meat to reduce prior stomach pain, resulting in some relief. Health Maintenance - Discussion and ordering of mammogram screening as it's due. - Recommendation and order for Pap smear and an POLICE RADIO DISPATCHER appointment. - Evaluation of blood pressure, which was noted to be at 122/78 mmHg, deemed favorable. - Discussion on blood tests including CBC, metabolic profile, liver, kidney function, sugar, cholesterol, vitamin D, B12, Thyroid function, and added lupus screening due to family history. - Guidance to perform fasting prior to laboratory tests. - Due for Tetanus vaccine; administered during visit. 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 - Advised to schedule a repeat physical exam visit annually or earlier if issues arise. 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 - No history of service documented. Diagnostic results - Previous CBC and kidney function tests from last year were normal. - Last recorded fasting blood sugar was elevated, indicating pre-diabetes, and to be reassessed. - Mention of prior blood stress level evaluation, to be repeated. Patient Instructions - Schedule a mammogram and Pap smear. - Undergo fasting blood tests, avoiding eating for 10 hours prior. - Review thyroid function and lupus screening during upcoming lab work. - Book a follow-up POLICE RADIO DISPATCHER visit. - Receive the Tetanus booster vaccine. - Discuss Hepatitis B immunity with pharmacy and labs. - Maintain lifestyle modifications including stress management and diet. - Follow-up for any new symptoms or concerns. Orders: Orders Complete Blood Count Auto Diff Today F43.9 - Reaction to severe stress, unspecified, R73.01 - Impaired fasting glucose, Z00.01 - Encounter for general adult medical examination with abnormal findings Lipid Panel Today F43.9 - Reaction to severe stress, unspecified, R73.01 - Impaired fasting glucose, Z00.01 - Encounter for general adult medical examination with abnormal findings Vitamin D 25-OH (D2 and D3) Today F43.9 - Reaction to severe stress, unspecified, R73.01 - Impaired fasting glucose, Z00.01 - Encounter for general adult medical examination with abnormal findings Vitamin B12 Today F43.9 - Reaction to severe stress, unspecified, R73.01 - Impaired fasting glucose, Z00.01 - Encounter for general adult medical examination with abnormal findings Hemoglobin A1c Today F43.9 - Reaction to severe stress, unspecified, R73.01 - Impaired fasting glucose, Z00.01 - Encounter for general adult medical examination with abnormal findings MM tomosynthesis screening BI Today Z12.31 - Encounter for screening mammogram for malignant neoplasm of breast Hepatitis B Surface Antibody Today Z28.39 - Other underimmunization status TDaP Immunization Today Z23 - Encounter for immunization Comprehensive [place]. Panel Fast Today F43.9 - Reaction to severe stress, unspecified, R73.01 - Impaired fasting glucose, Z00.01 - Encounter for general adult medical examination with abnormal findings TSH reflex Free T4 Today F43.9 - Reaction to severe stress, unspecified, R73.01 - Impaired fasting glucose, Z00.01 - Encounter for general adult medical examination with abnormal findings Anti DNA DS Antibody Today F43.9 - Reaction to severe stress, unspecified, R73.01 - Impaired fasting glucose, R76.8 - Other specified abnormal immunological findings in serum, Z00.01 - Encounter for general adult medical examination with abnormal findings Referrals POLICE RADIO DISPATCHER Referral Z01.419 - Encounter for gynecological examination (general) (routine) without abnormal findings
--- OUTSIDE RECORDS SUMMARY | 2025-03-03 16:19 | XMS_ITS | Encounter Summary ---
Author Organization [facility] Address [address] [place] [address] Care Team Providers Care Water Plant Maintenance Mechanic Name Role Phone Lea Klein MD Primary Care Provider [phone] Za Guerrero MD Primary Care Provider [phone] Unknown Pcp, Non Rmg Primary Care Provider Unava ilable Encounter Details Date Type Department Care Team ([facility] st Contact Info) Description 05/15/2014 Orders Only [facility] Internal Medicine [address] [place] [phone] Lea Klein MD [facility] [address] [place] [phone] Social History Tobacco Use Types Packs/Day [...] of this encounter Procedures * Due to [place] state law, this organization might not be [...] in this encounter Results * Due to [place] state law, this organization might not be sharing negative HIV tests. * (ABNORMAL) URINALYSIS, DIP ONLY ( SITE STAT ONLY) (05/15/2014 1:43 PM EDT) COLOR (URINE) DUSTIN(A) [facility] [place] [facility] (CLIA# [id number]) APPEARANCE (URINE) TURBID(A) [facility] (CLIA# [id number]) SPECIFIC GRAVITY 1.025 1.001 - 1.035 [facility] (CLIA# [id number]) PH (URINE) 6.5 5.0 - 8.0 [facility] (CLIA# [id number]) PROTEIN (URINE) 2+(A) Neg [facility] (CLIA# [id number]) GLUCOSE (URINE) NEGATIVE Neg [facility] (CLIA# [id number]) Ketones (Urine) NEGATIVE Neg [facility] (CLIA# [id number]) BILIRUBIN (URINE) NEGATIVE Neg [facility] (CLIA# [id number]) BLOOD (URINE) 3+(A) Neg [facility] (CLIA# [id number]) WBC (URINE) 3+(A) Neg [facility] (CLIA# [id number]) NITRITE (URINE) POSITIVE(A) Neg [facility] (CLIA# [id number]) Urine specimen (specimen) 05/15/2014 1:43 PM EDT Lea Klein MD LAB SAME DAY RESULT Final Res ult [facility] (CLIA# [id number]) [address] [place] [address] * (ABNORMAL) CULTURE, URINE, ROUTINE (05/15/2014 1:18 PM EDT) Bacteria culture (Urine) SEE NOTE(A) [facility] Comment: {CULTURE, URINE, ROUTINE {[id number]) ??CULTURE, URINE, ROUTINE ??MICRO NUMBER: ?[id number] ??TEST STATUS: ? FINAL ??SPECIMEN SOURCE: ?? [...] 10:26 PM EDT Narrative Resulting Agency Comment [id number] Lea Klein MD LABORATORY Final Result [facility] [address] [place] [address] * (ABNORMAL) URINALYSIS, MICROSCOPIC (05/15/2014 1:18 PM EDT) WBC (Urine) PACKED(A) < OR = 5 /HPF [facility] Comment:{WBC {[id number]) RBC (Urine Sed) 20-40(A) < OR = 3 /HPF [facility] Comment:{RBC {[id number]) Epithelial cells.squamous (Urine sed) 0-5 < OR = 5 /HPF [facility] Comment:{SQUAMOUS EPITHELIAL CELLS {[id number]) Bacteria (Urine) MANY(A) NONE SEEN /HPF [facility] Comment:{BACTERIA {[id number]) Amorphous sediment (Urine sed) FEW NONE OR FEW /HPF [facility] Comment:{AMORPHOUS SEDIMENT {[id number]) Hyaline casts (Urine sed) NONE SEEN NONE SEEN /LPF [facility] Comment:{HYALINE CAST {[id number]) 05/15/2014 1:18 PM EDT 05/15/2014 10:26 PM EDT Narrative Resulting Agency Comment [id number] Lea Klein MD LAB SAME DAY RESULT Final Res ult Performing Organization Address [facility] de Phone Number [facility] [address] [place] [address] * RPR, (RAPID PLASMIN REAGIN) WITH REFLEX TO FTA, DIAGNOSTIC (05/15/2014 1:18 PM EDT) Reagin Ab NON-REACT CANDICE NON-REACT CANDICE [facility] Comment:{RPR (DX) W/REFL TIT ER AND CONFIRMATORY TESTING {[id number]) 05/15/2014 1:18 PM EDT 05/15/2014 10:26 PM EDT Narrative Resulting Agency Comment [id number] Lea Klein MD LABORATORY Final Result Performing Organization Address [facility] de Phone Number [facility] [address] [place] [address] * HEPATITIS B SURFACE ANTIBODY, QUANTITATIVE (05/15/2014 1:18 PM EDT) Hepatitis B virus surface Ab 717 mIU/mL [facility] Comment: {HEPATITIS B SURFACE ANTIBODY (QUANT) {[id number]) Patient has immunity to hepatitis B virus. Effective March 02, 2014 this test is being performed using the [employer] Chemiluminesence method. Quantitative results from this method should not be used interchangeably with other methods. 05/15/2014 1:18 PM EDT 05/15/2014 10:26 PM EDT Narrative Resulting Agency Comment [id number] Lea Klein MD LABORATORY Final Result Performing Organization Address [facility]/ZIP Co de Phone Number [facility] [address] [place] [address] * HEPATITIS B SURFACE ANTIGEN (05/15/2014 1:18 PM EDT) Hepatitis B virus surface Ag NON-REACTI VE NON-REACT CANDICE [facility] Comment:{HEPATITIS B SURFACE ANTIGEN {[id number]) 05/15/2014 1:18 PM EDT 05/15/2014 10:26 PM EDT Narrative Resulting Agency Comment [id number] Lea Klein MD LABORATORY Final Result Performing Organization Address City/[facility] Co de Phone Number [facility] [address] [place] [address] * HEPATITIS C ANTIBODY, SERUM (05/15/2014 1:18 PM EDT) Hepatitis C virus Ab NON-REACTI VE NON-REACT CANDICE [facility] Comment:{HEPATITIS C ANTIBOD Y {[id number]) Hepatitis C virus Ab Signal/Cutoff 0.03 <1.00 [facility] Comment:{SIGNAL TO CUT-OFF { [id number]) 05/15/2014 1:18 PM EDT 05/15/2014 10:26 PM EDT Narrative Resulting Agency Comment [id number] Lea Klein MD LABORATORY Final Result Performing Organization Address [facility] Co de Phone Number [facility] [address] [place] [address] * ASPARTATE AMINOTRANSFERASE (AST), SERUM (05/15/2014 1:18 PM EDT) AST (SGOT) 12 10 - 30 U/L [facility] Comment:{AST {[id number]) 05/15/2014 1:18 PM EDT 05/15/2014 10:26 PM EDT Narrative Resulting Agency Comment [id number] Lea Klein MD LAB SAME DAY RESULT Final Res ult Performing Organization Address City/[facility] Co de Phone Number [facility] [address] [place] [address] * ALANINE AMINOTRANSFERASE (ALT), SERUM (05/15/2014 1:18 PM EDT) ALT (SGPT) 12 6 - 29 U/L [facility] Comment:{ALT {[id number]) 05/15/2014 1:18 PM EDT 05/15/2014 10:26 PM EDT Narrative Resulting Agency Comment [id number] us Lea Klein MD LAB SAME DAY RESULT Final Res ult [facility] [address] [place] [address] * (ABNORMAL) CBC INCLUDES DIFFERENTIAL AND PLATELET COUNT (05/15/2014 1:18 PM EDT) WBC 15.0(H) 3.8 - 10.8 Thousand/ uL [facility] Comment:{WHITE BLOOD CELL CO UNT {[id number]) RBC 4.71 3.80 - 5.10 Million/u L [facility] Comment:{RED BLOOD CELL COUN T {[id number]) Hemoglobin 15.2 11.7 - 15.5 g/dL [facility] Comment:{HEMOGLOBIN {[id number]) Hematocrit 45.7(H) 35.0 - 45.0 % [facility] Comment:{HEMATOCRIT {[id number]) MCV 97.1 80.0 - 100.0 fL [facility] Comment:{MCV {[id number]) MCH 32.3 27.0 - 33.0 pg [facility] Comment:{MCH {[id number]) MCHC 33.3 32.0 - 36.0 g/dL [facility] Comment:{MCHC {[id number]) RDW 14.9 11.0 - 15.0 % [facility] Comment:{RDW {[id number]) PLT 268 140 - 400 Thousand/ uL [facility] Comment:{PLATELET COUNT {[id number]) MPV 8.9 7.5 - 11.5 fL [facility] Comment:{MPV {[id number]) Neutrophils # 57051(H) 1500 - 7800 cells/uL [facility] Comment:{ABSOLUTE NEUTROPHIL S {[id number]) Lymphocytes # 2160 850 - 3900 cells/uL [facility] Comment:{ABSOLUTE LYMPHOCYTE S {[id number]) Monocytes # 720 200 - 950 cells/uL [facility] Comment:{ABSOLUTE MONOCYTES {[id number]) Eosinophils # 120 15 - 500 cells/uL [facility] Comment:{ABSOLUTE EOSINOPHIL S {[id number]) Basophils # 45 0 - 200 cells/uL [facility] Comment:{ABSOLUTE BASOPHILS {[id number]) Neutrophils % 79.7 % [facility] Comment:{NEUTROPHILS {[id number]) Lymphocytes % 14.4 % [facility] Comment:{LYMPHOCYTES {[id number]) Monocytes % 4.8 % [facility] Comment:{MONOCYTES {[id number]) Eosinophils % 0.8 % [facility] Comment:{EOSINOPHILS {[id number]) Basophils % 0.3 % [facility] Comment:{BASOPHILS {[id number]) 05/15/2014 1:18 PM EDT 05/15/2014 10:26 PM EDT Narrative Resulting Agency Comment [id number] us Lea Klein MD LAB SAME DAY RESULT Final Res ult [facility] [address] [place] [address] * BASIC METABOLIC PANEL WITH (GFR) (05/15/2014 1:18 PM EDT) Glucose 88 65 - 99 mg/dL [facility] Comment: {GLUCOSE {[id number]) ? Fasting reference interval Urea Nitrogen Blood (BUN) 15 7 - 25 mg/dL [facility] Comment:{UREA NITROGEN (BUN) {[id number]) Creatinine 0.62 0.50 - 1.10 mg/dL [facility] Comment:{CREATININE {[id number]) GFR 122 > OR = 60 mL/min/1. 73m2 [facility] Comment:{eGFR NON-AFR. AMERI CAN {[id number]) GFR () 141 > OR = 60 mL/min/1. 73m2 [facility] Comment:{eGFR AMERIC AN {[id number]) BUN/Creatinine Ratio NOT APPLICABLE 6 - 22 (calc) [facility] Comment:{BUN/CREATININE RATI O {[id number]) Sodium 140 135 - 146 mmol/L [facility] Comment:{SODIUM {[id number]) Potassium 3.9 3.5 - 5.3 mmol/L [facility] Comment:{POTASSIUM {[id number]) Chloride 106 98 - 110 mmol/L [facility] Comment:{CHLORIDE {[id number]) Carbon dioxide 23 19 - 30 mmol/L [facility] Comment:{CARBON DIOXIDE {[id number]) Calcium 9.4 8.6 - 10.2 mg/dL [facility] Comment:{CALCIUM {[id number]) 05/15/2014 1:18 PM EDT 05/15/2014 10:26 [...] needs for GFR calculation. Resulting Agency Comment [id number] us Lea Klein MD LABORATORY Final Result [facility] [address] [place] [address] documented in this encounter Visit Diagnoses Diagnosis Screening for diabetes mellitus Leukocytosis Leukocytosis, unspecified Screening for lipoid disorders Screening examination for sexually transmitted disease Screening examination for venereal disease Urinary tract infection Urinary tract infection, site not specified documented in this encounter Care Teams Water Plant Maintenance Mechanic Relationship Specialty Start Date End Date Lea Klein MD PCP - General Internal Medicine 01/20/13 05/17/14 Za Guerrero MD PCP - General Internal Medicine 05/18/14 02/03/16 Unknown Pcp, Non Rmg PCP - General 02/04/16 documented as of this encounter
--- OUTSIDE RECORDS SUMMARY | 2025-03-03 16:19 | XMS_ITS | Encounter Summary ---
Author Organization [facility] Address [address] [place] [address] Care Team Providers Care Net Washer Name Role Phone Unknown Pcp, Non Rmg Primary Care Provider Unava ilable Encounter Details Date Type Department Care Team ([facility] st Contact Info) Description 08/15/2016 Orders Only [facility] Internal Medicine [address] [place] [address] Unknown Pcp, Non Rmg Social History Tobacco [...] on filedocumented in this encounter Care Teams Net Washer Relationship Specialty Start Date End Date Unknown Pcp, Non Rmg PCP - General 02/04/16 documented as of this encounter
--- OUTSIDE RECORDS SUMMARY | 2025-03-03 16:20 | XMS_ITS | Encounter Summary ---
Author Organization [facility] Address [address] [place] [address] Care Team Providers Care Powder Mill Operator Name Role Phone Za Guerrero MD Primary Care Provider Unknown Pcp, Non Rmg Primary Care Provider Unava ilable Encounter Details Date Type Department Care Team (Late st Contact Info) Description 06/10/2014 Orders Only [facility] Internal Medicine [address] [place] [id number] Za Guerrero MD [address] [place] [phone] Social History Tobacco Use Types Packs/Day Years [...] Job Start Date Job End Date [employer] Not on file Not [...] of this encounter Procedures * Due to [place] state law, this organization might not be [...] in this encounter Results * Due to [place] state law, this organization might not be sharing negative HIV tests. * (ABNORMAL) LIPID PANEL WITH REFLEX TO DIRECT LDL (06/10/2014 11:02 AM EDT) Cholesterol 146 125 - 200 mg/dL [facility] Comment:{CHOLESTEROL, TOTAL {[id number]) HDL Cholesterol 38(L) > OR = 46 mg/dL [facility] Comment:{HDL CHOLESTEROL {[id number]) Triglyceride 106 <150 mg/dL [facility] Comment:{TRIGLYCERIDES {[id number]) LDL Cholesterol 87 <130 mg/dL (calc) [facility] Comment: {LDL-CHOLESTEROL {[id number]) Desirable range <100 mg/dL for patients with CHD or diabetes and <70 mg/dL for diabetic patients with known heart disease. CHOL/HDL Ratio 3.8 < OR = 5.0 (calc) [facility] Comment:{CHOL/HDLC RATIO {[id number]) Cholesterol Non-HDL 108 mg/dL (calc) [facility] Comment: {NON HDL CHOLESTEROL {[id number]) Target for non-HDL cholesterol is 30 mg/dL higher than LDL cholesterol target. 06/10/2014 11:0 2 AM EDT 06/10/2014 7:56 PM EDT Narrative Resulting Agency Comment [id number] us Za Guerrero MD LABORATORY Final Result [facility] [address] [place] [address] * BASIC METABOLIC PANEL WITH (GFR) (06/10/2014 11:02 AM EDT) [facility] Glucose 93 65 - 99 mg/dL [facility] Comment: {GLUCOSE {[id number]) ? Fasting reference interval Urea Nitrogen Blood (BUN) 16 7 - 25 mg/dL [facility] Comment:{UREA NITROGEN (BUN) {[id number]) Creatinine 0.64 0.50 - 1.10 mg/dL [facility] Comment:{CREATININE {[id number]) GFR 121 > OR = 60 mL/min/1. 73m2 [facility] Comment:{eGFR NON-AFR. AMERI CAN {[id number]) GFR () 140 > OR = 60 mL/min/1. 73m2 [facility] Comment:{eGFR AMERIC AN {[id number]) BUN/Creatinine Ratio NOT APPLICABLE 6 - (calc) [facility] Comment:{BUN/CREATININE RATI O {[id number]) Sodium 140 135 - 146 mmol/L [facility] Comment:{SODIUM {[id number]) Potassium 4.1 3.5 - 5.3 mmol/L [facility] Comment:{POTASSIUM {[id number]) Chloride 106 98 - 110 mmol/L [facility] Comment:{CHLORIDE {[id number]) Carbon dioxide 24 19 - 30 mmol/L [facility] Comment:{CARBON DIOXIDE {[id number]) Calcium 9.6 8.6 - 10.2 mg/dL [facility] Comment:{CALCIUM {[id number]) 06/10/2014 11:0 2 AM EDT 06/10/2014 [...] needs for GFR calculation. Resulting Agency Comment [id number] us Za Guerrero MD LABORATORY Final Result [facility] [address] [place] [address] * (ABNORMAL) CBC INCLUDES DIFFERENTIAL AND PLATELET COUNT (06/10/2014 11:02 AM EDT) WBC 14.3(H) 3.8 - 10.8 Thousand/ uL [facility] Comment:{WHITE BLOOD CELL CO UNT {[id number]) RBC 4.89 3.80 - 5.10 Million/u L [facility] Comment:{RED BLOOD CELL COUN T {[id number]) Hemoglobin 15.5 11.7 - 15.5 g/dL [facility] Comment:{HEMOGLOBIN {[id number]) Hematocrit 47.9(H) 35.0 - 45.0 % [facility] Comment:{HEMATOCRIT {[id number]) MCV 97.9 80.0 - 100.0 fL [facility] Comment:{MCV {[id number]) MCH 31.7 27.0 - 33.0 pg [facility] Comment:{MCH {[id number]) MCHC 32.3 32.0 - 36.0 g/dL [facility] Comment:{MCHC {[id number]) RDW 14.3 11.0 - 15.0 % [facility] Comment:{RDW {[id number]) PLT 284 140 - 400 Thousand/ uL [facility] Comment:{PLATELET COUNT {[id number]) MPV 9.1 7.5 - 11.5 fL [facility] Comment:{MPV {[id number]) Neutrophils # 95661(H) 1500 - 7800 cells/uL [facility] Comment:{ABSOLUTE NEUTROPHIL S {[id number]) Lymphocytes # 2116 850 - 3900 cells/uL [facility] Comment:{ABSOLUTE LYMPHOCYTE S {[id number]) Monocytes # 601 200 - 950 cells/uL [facility] Comment:{ABSOLUTE MONOCYTES {[id number]) Eosinophils # 186 15 - 500 cells/uL [facility] Comment:{ABSOLUTE EOSINOPHIL S {[id number]) Basophils # 43 0 - 200 cells/uL [facility] Comment:{ABSOLUTE BASOPHILS {[id number]) Neutrophils % 79.4 % [facility] Comment:{NEUTROPHILS {[id number]) Lymphocytes % 14.8 % [facility] Comment:{LYMPHOCYTES {[id number]) Monocytes % 4.2 % [facility] Comment:{MONOCYTES {[id number]) Eosinophils % 1.3 % [facility] Comment:{EOSINOPHILS {[id number]) Basophils % 0.3 % [facility] Comment:{BASOPHILS {[id number]) 06/10/2014 11:0 2 AM EDT 06/10/2014 7:56 PM EDT Narrative Resulting Agency Comment [id number] us Za Guerrero MD LAB SAME DAY RESULT Final Resul t Performing Organization Address City/State/[facility] Co de Phone Number [facility] [address] [place] [address] documented in this encounter Visit Diagnoses Diagnosis Routine general medical examination at a health care facility Screening for deficiency anemia Screening for other and unspecified deficiency anemia Smoking Tobacco use disorder documented in this encounter Care Teams Powder Mill Operator Relationship Specialty Start Date End Date Za Guerrero MD PCP - General Internal Medicine 05/18/14 02/03/16 Unknown Pcp, Non Rmg PCP - General 02/04/16 documented as of this encounter
--- OUTSIDE RECORDS SUMMARY | 2025-03-03 16:20 | XMS_ITS | Clinical Summary ---
Author Organization [facility] Address [address] [place] [address] Care Team Providers Care Fruit Cutter Name Role Phone Unknown Pcp, Non Rmg [...] complete this topic Procedures * Due to [place] [employer] law, this organization might not be sharing negative HIV tests. Procedure Name Priority Date/Time Associated Diagnosis Comments [facility] FPGS PAP REFLEX HPV Routine 06/09/2014 2:30 PM EDT HEPATITIS C AB WITH REFLEX TO RNA PCR, SERUM Routine 05/15/2014 1:18 PM EDT Screening examination for sexually transmitted disease from Last 3 Months or Most Recently Relevant to Health Maintenance Results * Due to [place] [employer] law, this organization might not be sharing negative HIV tests. * [facility]??FPGS PAP??REFLEX HPV (06/09/2014 2:30 PM EDT) Clinical information NONE GIVEN [facility] Comment:{CLINICAL INFORMATIO N: {[id number]) Date last menstrual period [id number] [facility] Comment:{LMP: {[id number]) Date of previous PAP smear NONE GIVEN [facility] Comment:{PREV. PAP: {[id number]) Date of previous biopsy NONE GIVEN [facility] Comment:{PREV. BX: {[id number]) Specimen source (Cvx/Vag) Vagina, Cervix, Endocervix [facility] Comment:{SOURCE: {[id number]) Statement of Adequacy (Cvx/Vag) Satisfactory for evaluation. Endocervical/trans formation zone component present. [facility] Comment:{STATEMENT OF ADEQUA CY: {[id number]) Cytology, Pap Smear Negative for intraepithelial lesion or malignancy. [facility] Comment:{INTERPRETATION/RESU LT: {[id number]) Cytology study comment (Cvx/Vag) This Pap test has been evaluated with computer assisted technology. [facility] Comment:{COMMENT: {[id number]) Dianetic Counselor (Cvx/Vag) MSM, [place](ASCP) [facility] Comment:{PRINCIPAL JAVA SOFTWARE ENGINEER: { [id number]) 06/09/2014 2:30 PM EDT 06/10/2014 1:09 AM EDT us Za Guerrero MD PATHOLOGY-INTERFACED Final Resu lt [facility] [address] [place] [address] * HEPATITIS C ANTIBODY, SERUM (05/15/2014 1:18 PM EDT) Hepatitis C virus Ab NON-REACTI VE NON-REACT CANDICE [facility] Comment:{HEPATITIS C ANTIBOD Y {[id number]) Hepatitis C virus Ab Signal/Cutoff 0.03 <1.00 [facility] Comment:{SIGNAL TO CUT-OFF { [id number]) 05/15/2014 1:18 PM EDT 05/15/2014 10:26 PM EDT Narrative Resulting Agency Comment [id number] Lea Klein MD LABORATORY Final Result [facility] [address] [place] [address] from Last 3 Months or Most Recently Relevant to Health Maintenance Insurance * Guarantor: LUNA DE PAZ Account Type Relation to Patient Date of Phone Billing Address Personal/Family [address] [address] [facility] Care Teams Fruit Cutter Relationship Specialty Start Date End Date Unknown Pcp, Non Rmg PCP - General 02/04/16
--- OUTSIDE RECORDS SUMMARY | 2025-03-03 16:20 | XMS_ITS | Encounter Summary ---
Author Organization [facility] Address [address] [place] [address] Care Team Providers Care Structural Draftsman Name Role Phone Za Guerrero MD Primary Care Provider [phone] Unknown Pcp, Non Rmg Primary Care Provider Unava ilable Encounter Details Date Type Department Care Team ( st Contact Info) Description 06/09/2014 Orders Only [facility] Internal Medicine [address] [place] [phone] Za Guerrero MD [address] [place] [address] Social History Tobacco Use Types Packs/Day Years [...] Job Start Date Job End Date [employer] Not on file Not on yung e Not on file documented as of this encounter Plan of Treatment Not on file documented as of this encounter Procedures * Due to [place] [employer] law, this organization might not be sharing negative HIV tests. Procedure Name Priority Date/Time Associated Diagnosis Comments PAIN MANAGEMENT PROFILE, URINE (PAINM2) Routine 06/09/2014 3:21 PM EDT Smoking Marijuana smoker Routine general medical examination at a health care facility documented in this encounter Results * Due to [place] [employer] law, this organization might not be sharing negative HIV tests. * (ABNORMAL) PAIN MANAGEMENT PROFILE, URINE (PAINM2) (06/09/2014 3:21 PM EDT) CREATININE 138.1 > or = 20.0 mg/dL [facility] Comment:{Creatinine {[id number]) PH 7.4 4.5 - 9.0 [facility] Comment:{pH {[id number]) OXIDANT NEGATIVE <200 mcg/mL [facility] Comment:{Oxidant {[id number]) Amphetamines (Screen) NEGATIVE <500 ng/mL [facility] Comment:{Amphetamines {[id number]) Barbiturates (Urine) NEGATIVE <300 ng/mL [facility] Comment:{Barbiturates {[id number]) Benzodiazepine And Metabolites, Urine NEGATIVE <100 ng/mL [facility] Comment:{Benzodiazepines {[id number]) Buprenorphine (Suboxone) (Urine) NEGATIVE <5 ng/mL [facility] Comment:{Buprenorphine {[id number]) Benzoylecgonine (Cocaine Metabolite) (Urine) NEGATIVE <150 ng/mL [facility] Comment:{Cocaine Metabolite {[id number]) 6-Monoacetylmorphine (Heroin Metabolite) (Urine) NEGATIVE <10 ng/mL [facility] Comment:{Heroin Metabolite { [id number]) Tetrahydrocannabinol (Urine) POSITIVE(A) <20 ng/mL [facility] Comment:{Marijuana Metabolit e 20 {[id number]) Tetrahydrocannabinol (Urine) 451(H) <5 ng/mL [facility] Comment:{Marijuana Metabolit e {[id number]) MDMA/MDA NEGATIVE <500 ng/mL [facility] Comment:{MDMA/MDA {[id number]) EDDP ( Methadone Metabolite) NEGATIVE <100 ng/mL [facility] Comment:{Methadone Metabolit e {[id number]) Opiates (Urine) NEGATIVE CONFIRMED <100 ng/mL [facility] Comment:{Opiates {[id number]) Codeine (Urine) NEGATIVE <50 ng/mL [facility] Comment:{Codeine {[id number]) Hydrocodone (Urine) NEGATIVE <50 ng/mL [facility] Comment:{Hydrocodone {[id number]) Hydromorphone (Urine) NEGATIVE <50 ng/mL [facility] Comment:{Hydromorphone {[id number]) Morphine (Urine) NEGATIVE <50 ng/mL [facility] Comment:{Morphine {[id number]) Oxycodone (Urine) NEGATIVE <100 ng/mL [facility] Comment:{Oxycodone {[id number]) Phencyclidine (Urine) NEGATIVE <25 ng/mL [facility] Comment:{Phencyclidine {[id number]) Propoxyphene (Urine) NEGATIVE <300 ng/mL [facility] Comment:{Propoxyphene {[id number]) 06/09/2014 3:21 PM EDT 06/09/2014 11:25 PM EDT Za Guerrero MD LABORATORY Final Result [facility] [address] [place] [address] documented in this encounter Visit Diagnoses Diagnosis Smoking Tobacco use disorder Marijuana smoker Cannabis abuse, unspecified Routine general medical examination at a health care facility documented in this encounter Care Teams Structural Draftsman Relationship Specialty Start Date End Date Za Guerrero MD PCP - General Internal Medicine 05/18/14 02/03/16 Unknown Pcp, Non Rmg PCP - General 02/04/16 documented as of this encounter
--- OUTSIDE RECORDS SUMMARY | 2025-03-03 16:20 | XMS_ITS | Encounter Summary ---
Author Organization [facility] Address [address] [place] [address] Care Team Providers Care Catering Coordinator Name Role Phone Za Guerrero MD Primary Care Provider [phone] Unknown Pcp, Non Rmg Primary Care Provider Unava ilable Encounter Details Date Type Department Care Team (Late st Contact Info) Description 05/18/2014 Orders Only February Internal Medicine [address] [place] [address] Za Guerrero MD [address] [place] [address] Social History Tobacco Use Types Packs/Day Years [...] on filedocumented in this encounter Care Teams Catering Coordinator Relationship Specialty Start Date End Date Za Guerrero MD PCP - General Internal Medicine 05/18/14 02/03/16 Unknown Pcp, Non Rmg PCP - General 02/04/16 documented as of this encounter
--- OUTSIDE RECORDS SUMMARY | 2025-03-03 16:20 | XMS_ITS | Encounter Summary ---
Author Organization [facility] Address [address] [place] [address] Care Team Providers Care Steward/Stewardess Lounge Name Role Phone Lea Klein MD Primary Care Provider [phone] Za Guerrero MD Primary Care Provider [phone] Unknown Pcp, Non Rmg Primary Care Provider Unava ilable Encounter Details Date Type Department Care Team (Late st Contact Info) Description 02/12/2013 Orders Only [facility] Internal Medicine [address] [place] [address] Lea Klein MD [facility] [address] [place] [address] Social History Tobacco Use Types Packs/Day [...] of this encounter Procedures * Due to [place] state law, this organization might not be sharing negative HIV tests. Procedure Name Priority Date/Time Associated Diagnosis Comments CBC INCLUDES DIFFERENTIAL AND PLATELET COUNT Routine 02/12/2013 2:43 PM EDT Menorrhagia HCG, TOTAL, QL Routine 02/12/2013 2:43 PM EDT Menorrhagia THYROID STIMULATING HORMONE (TSH) WITH FREE T4 REFLEX, SERUM Routine 02/12/2013 2:43 PM EDT Menorrhagia documented in this encounter Results * Due to [place] state law, this organization might not be sharing negative HIV tests. * (ABNORMAL) CBC INCLUDES DIFFERENTIAL AND PLATELET COUNT (02/12/2013 2:43 PM EDT) WBC 11.8(H) 3.8 - 10.8 Thousand/ uL [facility] Comment:{WHITE BLOOD CELL CO UNT {[id number]) RBC 4.47 3.80 - 5.10 Million/u L [facility] Comment:{RED BLOOD CELL COUN T {[id number]) Hemoglobin 12.9 11.7 - 15.5 g/dL [facility] Comment:{HEMOGLOBIN {[id number]) Hematocrit 40.8 35.0 - 45.0 % [facility] Comment:{HEMATOCRIT {[id number]) MCV 91.4 80.0 - 100.0 fL [facility] Comment:{MCV {[id number]) MCH 28.9 27.0 - 33.0 pg [facility] Comment:{MCH {[id number]) MCHC 31.6(L) 32.0 - 36.0 g/dL [facility] Comment:{MCHC {[id number]) RDW 16.0(H) 11.0 - 15.0 % [facility] Comment:{RDW {[id number]) PLT 279 140 - 400 Thousand/ uL [facility] Comment:{PLATELET COUNT {[id number]) MPV 9.1 7.5 - 11.5 fL [facility] Comment:{MPV {[id number]) Neutrophils # 9015(H) 1500 - 7800 cells/uL [facility] Comment:{ABSOLUTE NEUTROPHIL S {[id number]) Lymphocytes # 2207 850 - 3900 cells/uL [facility] Comment:{ABSOLUTE LYMPHOCYTE S {[id number]) Monocytes # 460 200 - 950 cells/uL [facility] Comment:{ABSOLUTE MONOCYTES {[id number]) Eosinophils # 94 15 - 500 cells/uL [facility] Comment:{ABSOLUTE EOSINOPHIL S {[id number]) Basophils # 24 0 - 200 cells/uL [facility] Comment:{ABSOLUTE BASOPHILS {[id number]) Neutrophils % 76.4 % [facility] Comment:{NEUTROPHILS {[id number]) Lymphocytes % 18.7 % [facility] Comment:{LYMPHOCYTES {[id number]) Monocytes % 3.9 % [facility] Comment:{MONOCYTES {[id number]) Eosinophils % 0.8 % [facility] Comment:{EOSINOPHILS {[id number]) Basophils % 0.2 % [facility] Comment:{BASOPHILS {[id number]) 02/12/2013 2:43 PM EDT 02/13/2013 1:03 AM EDT Narrative Resulting Agency Comment [id number] Lea Klein MD LAB SAME DAY RESULT Final Res ult Performing Organization Address City/State/[facility] Co de Phone Number [facility] [address] [place] [address] * THYROID STIMULATING HORMONE (TSH) WITH FREE T4 REFLEX, SERUM (02/12/2013 2:43 PM EDT) TSH 0.74 mIU/L [facility] Comment: {TSH W/REFLEX TO FT4 {[id number]) ?Reference Range ?> or = 20 Years ??0.40-4.50 ? Ranges ?First trimester ?0.26-2.66 ?Second trimester ?? 0.55-2.73 ?Third trimester ?0.43-2.91 02/12/2013 2:43 PM EDT 02/13/2013 1:03 AM EDT Narrative Resulting Agency Comment [id number] Lea Klein MD LABORATORY Final Result [facility] [address] [place] [address] * HCG, TOTAL, QL (02/12/2013 2:43 PM EDT) HCG, Qualitative (Screen) NEGATIVE [facility] Comment: {HCG, TOTAL, QL {[id number]) Reference Range Non-: Negative : ? Positive 02/12/2013 2:43 PM EDT 02/13/2013 1:03 AM EDT Narrative Resulting Agency Comment [id number] Lea Klein MD LAB SAME DAY RESULT Final Res ult Performing Organization Address City/[facility]/ZIP Co de Phone Number [facility] [address] [place] [address] documented in this encounter Visit Diagnoses Diagnosis Menorrhagia Excessive or frequent menstruation documented in this encounter Care Teams Steward/Stewardess Lounge Relationship Specialty Start Date End Date Lea Klein MD PCP - General Internal Medicine 01/20/13 05/17/14 Za Guerrero MD PCP - General Internal Medicine 05/18/14 02/03/16 Unknown Pcp, Non Rmg PCP - General 02/04/16 documented as of this encounter
--- OUTSIDE RECORDS SUMMARY | 2025-03-03 16:20 | XMS_ITS | Encounter Summary ---
Author Organization [facility] Address [address] [place] [address] Care Team Providers Care Sanitary Landfill Supervisor Name Role Phone Za Guerrero MD Primary Care Provider [phone] Unknown Pcp, Non Rmg Primary Care Provider Unava ilable Encounter Details Date Type Department Care Team (Late st Contact Info) Description 05/18/2014 Orders Only February Internal Medicine [address] [place] [address] Za Guerrero MD [address] [place] [address] Social History Tobacco Use Types Packs/Day Years [...] on filedocumented in this encounter Care Teams Sanitary Landfill Supervisor Relationship Specialty Start Date End Date Za Guerrero MD PCP - General Internal Medicine 05/18/14 02/03/16 Unknown Pcp, Non Rmg PCP - General 02/04/16 documented as of this encounter
--- OUTSIDE RECORDS SUMMARY | 2025-03-03 16:20 | XMS_ITS | Encounter Summary ---
Author Organization [facility] Address [address] [place] [address] Care Team Providers Care Breaker Layer Name Role Phone Za Guerrero MD Primary Care Provider [phone] Unknown Pcp, Non Rmg Primary Care Provider Unava ilable Encounter Details Date Type Department Care Team (Late st Contact Info) Description 05/18/2014 Orders Only February Internal Medicine [address] [place] [phone] Lea Klein MD [facility] [address] [place] [address] Social History Tobacco Use Types Packs/Day Years [...] on filedocumented in this encounter Care Teams Breaker Layer Relationship Specialty Start Date End Date Za Guerrero MD PCP - General Internal Medicine 05/18/14 02/03/16 Unknown Pcp, Non Rmg PCP - General 02/04/16 documented as of this encounter
--- OUTSIDE RECORDS SUMMARY | 2025-03-03 16:20 | XMS_ITS | Encounter Summary ---
Author Organization [facility] Address [address] [place] [address] Care Team Providers Care Sex Offender Treatment Professional Name Role Phone Lea Klein MD Primary Care Provider [phone] Za Guerrero MD Primary Care Provider [phone] Unknown Pcp, Non Rmg Primary Care Provider Unava ilable Encounter Details Date Type Department Care Team (Late st Contact Info) Description 01/21/2013 Orders Only [facility] Internal Medicine [address] [place] [address] Lea Klein MD [facility] [address] [place] [address] Social History Tobacco Use Types Packs/Day [...] of this encounter Results * Due to [place] state law, this organization might not be sharing negative HIV tests. * (ABNORMAL) CBC INCLUDES DIFFERENTIAL AND PLATELET COUNT (02/12/2013 2:43 PM EDT) WBC 11.8(H) 3.8 - 10.8 Thousand/ uL [facility] Comment:{WHITE BLOOD CELL CO UNT {[id number]) RBC 4.47 3.80 - 5.10 Million/u L [facility] Comment:{RED BLOOD CELL COUN T {[id number]) Hemoglobin 12.9 11.7 - 15.5 g/dL [facility] Comment:{HEMOGLOBIN {[id number]) Hematocrit 40.8 35.0 - 45.0 % [facility] Comment:{HEMATOCRIT {[id number]) MCV 91.4 80.0 - 100.0 fL [facility] Comment:{MCV {[id number]) MCH 28.9 27.0 - 33.0 pg [facility] Comment:{MCH {[id number]) MCHC 31.6(L) 32.0 - 36.0 g/dL [facility] Comment:{MCHC {[id number]) RDW 16.0(H) 11.0 - 15.0 % [facility] Comment:{RDW {[id number]) PLT 279 140 - 400 Thousand/ uL [facility] Comment:{PLATELET COUNT {[id number]) MPV 9.1 7.5 - 11.5 fL [facility] Comment:{MPV {[id number]) Neutrophils # 9015(H) 1500 - 7800 cells/uL [facility] Comment:{ABSOLUTE NEUTROPHIL S {[id number]) Lymphocytes # 2207 850 - 3900 cells/uL [facility] Comment:{ABSOLUTE LYMPHOCYTE S {[id number]) Monocytes # 460 200 - 950 cells/uL [facility] Comment:{ABSOLUTE MONOCYTES {[id number]) Eosinophils # 94 15 - 500 cells/uL [facility] Comment:{ABSOLUTE EOSINOPHIL S {[id number]) Basophils # 24 0 - 200 cells/uL [facility] Comment:{ABSOLUTE BASOPHILS {[id number]) Neutrophils % 76.4 % [facility] Comment:{NEUTROPHILS {[id number]) Lymphocytes % 18.7 % [facility] Comment:{LYMPHOCYTES {[id number]) Monocytes % 3.9 % [facility] Comment:{MONOCYTES {[id number]) Eosinophils % 0.8 % [facility] Comment:{EOSINOPHILS {[id number]) Basophils % 0.2 % [facility] Comment:{BASOPHILS {[id number]) 02/12/2013 2:43 PM EDT 02/13/2013 1:03 AM EDT Narrative Resulting Agency Comment [id number] [facility] Lea Klein MD LAB SAME DAY RESULT Final Res ult Performing Organization Address [facility] de Phone Number [facility] [address] [place] [address] * THYROID STIMULATING HORMONE (TSH) WITH FREE T4 REFLEX, SERUM (02/12/2013 2:43 PM EDT) TSH 0.74 mIU/L [facility] Comment: {TSH W/REFLEX TO FT4 {[id number]) ?Reference Range ?> or = 20 Years ??0.40-4.50 ? Ranges ?First trimester ?0.26-2.66 ?Second trimester ?? 0.55-2.73 ?Third trimester ?0.43-2.91 02/12/2013 2:43 PM EDT 02/13/2013 1:03 AM EDT Narrative Resulting Agency Comment [id number] Result [facility] Lea Klein MD LABORATORY Final Result Performing Organization Address [facility] de Phone Number [facility] [address] [place] [address] * HCG, TOTAL, QL (02/12/2013 2:43 PM EDT) HCG, Qualitative (Screen) NEGATIVE [facility] Comment: {HCG, TOTAL, QL {[id number]) Reference Range Non-: Negative : ? Positive 02/12/2013 2:43 PM EDT 02/13/2013 1:03 AM EDT Narrative Resulting Agency Comment [id number] Lea Klein MD LAB SAME DAY RESULT Final Res ult [facility] [address] [place] [address] documented in this encounter Visit Diagnoses Diagnosis Menorrhagia- Primary Excessive or frequent menstruation documented in this encounter Care Teams Sex Offender Treatment Professional Relationship Specialty Start Date End Date Lea Klein MD PCP - General Internal Medicine 01/20/13 05/17/14 Za Guerrero MD PCP - General Internal Medicine 05/18/14 02/03/16 Unknown Pcp, Non Rmg PCP - General 02/04/16 documented as of this encounter
--- OUTSIDE RECORDS SUMMARY | 2025-03-03 16:20 | XMS_ITS | Encounter Summary ---
Author Organization [facility] Address [address] [place] [address] Care Team Providers Care Economic Specialist Name Role Phone Lea Klein MD Primary Care Provider [phone] Za Guerrero MD Primary Care Provider Unknown Pcp, Non Rmg Primary Care Provider Unava ilable Encounter Details Date Type Department Care Team (Late st Contact Info) Description 04/09/2013 Orders Only [facility] Internal Medicine [address] [place] [address] Lea Klein MD [facility] [address] [place] [address] Social History Tobacco Use Types Packs/Day [...] of this encounter Results * Due to [place] [...] limb documented in this encounter Care Teams Economic Specialist Relationship Specialty Start Date End Date Lea Klein MD PCP - General Internal Medicine 01/20/13 05/17/14 Za Guerrero MD PCP - General Internal Medicine 05/18/14 02/03/16 Unknown Pcp, Non Rmg PCP - General 02/04/16 documented as of this encounter
== END 2025-03-03 16:09 | disposition home or self-care (01) ==
LOC: HO.HMCC 15:33
PROVIDERS: PCP Internal Medicine; Visit Provider Internal Medicine
DX: Z00.00 Encounter for general adult medical examination without abnormal findings (principal); F43.9 Reaction to severe stress, unspecified; R73.01 Impaired fasting glucose; Z28.39 Other underimmunization status; Z23 Encounter for immunization

== ENCOUNTER → 2025-03-03 15:32 | Outpatient (BNVA) | payer BC, SELFPAY | PROVIDERS: PCP Internal Medicine; Visit Provider Internal Medicine | DX: Z00.01 Encounter for general adult medical examination with abnormal findings (principal); Z23 Encounter for immunization; F43.9 Reaction to severe stress, unspecified; R73.01 Impaired fasting glucose; Z28.39 Other underimmunization status | CPT/HCPCS: 90471; 90715; 96127 ==

== ENCOUNTER 2025-03-19 10:21 | Outpatient (REF) | payer BC, SELFPAY ==
--- OUTSIDE RECORDS SUMMARY | 2025-03-19 10:43 | XMS_ITS | Encounter Summary ---
Author Organization [facility] Address [address] [place] [address] Care Team Providers Care Auto Slip Cover Installer Name Role Phone Lea Klein MD Primary Care Provider [phone] Za Guerrero MD Primary Care Provider [phone] Unknown Pcp, Non [facility] Primary Care Provider Unava ilable Encounter Details Date Type Department Care Team ([facility] st Contact Info) Description 05/15/2014 Orders Only [facility] Internal Medicine [address] [place] [address] Lea Klein MD [facility] [address] [place] [phone] Social History Tobacco Use Types Packs/Day [...] of this encounter Procedures * Due to [place] state law, this organization might not be [...] in this encounter Results * Due to [place] state law, this organization might not be sharing negative HIV tests. * (ABNORMAL) URINALYSIS, DIP ONLY ( SITE STAT ONLY) (05/15/2014 1:43 PM EDT) COLOR (URINE) DUSTIN(A) [facility] [employer] [facility] (CLIA# [id number]) APPEARANCE (URINE) TURBID(A) [facility] (CLIA# [id number]) SPECIFIC GRAVITY 1.025 1.001 - 1.035 [facility] (CLIA# [id number]) PH (URINE) 6.5 5.0 - 8.0 [facility] (CLIA# [id number]) PROTEIN (URINE) 2+(A) Neg [facility] (CLIA# [id number]) GLUCOSE (URINE) NEGATIVE Neg [facility] (CLIA# [id number]) Ketones (Urine) NEGATIVE Neg [facility] (CLIA# [id number]) BILIRUBIN (URINE) NEGATIVE Neg [facility] (CLIA# [id number]) BLOOD (URINE) 3+(A) Neg [facility] (CLIA# [id number]) WBC (URINE) 3+(A) Neg [facility] (CLIA# [id number]) NITRITE (URINE) POSITIVE(A) Neg [facility] (CLIA# [id number]) Urine specimen (specimen) 05/15/2014 1:43 PM EDT Lea Klein MD LAB SAME DAY RESULT Final Res ult [facility] (CLIA# [id number]) [address] [place] [address] * (ABNORMAL) CULTURE, URINE, ROUTINE (05/15/2014 1:18 PM EDT) Bacteria culture (Urine) SEE NOTE(A) [facility] Comment: {CULTURE, URINE, ROUTINE {[id number]) ??CULTURE, URINE, ROUTINE ??MICRO NUMBER: ?[id number] ??TEST STATUS: ? FINAL ??SPECIMEN SOURCE: ?? [...] 10:26 PM EDT Narrative Resulting Agency Comment [id number] Lea Klein MD LABORATORY Final Result [facility] [address] [place] [address] * (ABNORMAL) URINALYSIS, MICROSCOPIC (05/15/2014 1:18 PM EDT) WBC (Urine) PACKED(A) < OR = 5 /HPF [facility] Comment:{WBC {[id number]) RBC (Urine Sed) 20-40(A) < OR = 3 /HPF [facility] Comment:{RBC {[id number]) Epithelial cells.squamous (Urine sed) 0-5 < OR = 5 /HPF [facility] Comment:{SQUAMOUS EPITHELIAL CELLS {[id number]) Bacteria (Urine) MANY(A) NONE SEEN /HPF [facility] Comment:{BACTERIA {[id number]) Amorphous sediment (Urine sed) FEW NONE OR FEW /HPF [facility] Comment:{AMORPHOUS SEDIMENT {[id number]) Hyaline casts (Urine sed) NONE SEEN NONE SEEN /LPF [facility] Comment:{HYALINE CAST {[id number]) 05/15/2014 1:18 PM EDT 05/15/2014 10:26 PM EDT Narrative Resulting Agency Comment [id number] Lea Klein MD LAB SAME DAY RESULT Final Res ult Performing Organization Address [facility] de Phone Number [facility] [address] [place] [address] * RPR, (RAPID PLASMIN REAGIN) WITH REFLEX TO FTA, DIAGNOSTIC (05/15/2014 1:18 PM EDT) Reagin Ab NON-REACT CANDICE NON-REACT CANDICE [facility] Comment:{RPR (DX) W/REFL TIT ER AND CONFIRMATORY TESTING {[id number]) 05/15/2014 1:18 PM EDT 05/15/2014 10:26 PM EDT Narrative Resulting Agency Comment [id number] Lea Klein MD LABORATORY Final Result Performing Organization Address [facility] de Phone Number [facility] [address] [place] [address] * HEPATITIS B SURFACE ANTIBODY, QUANTITATIVE (05/15/2014 1:18 PM EDT) Hepatitis B virus surface Ab 717 mIU/mL [facility] Comment: {HEPATITIS B SURFACE ANTIBODY (QUANT) {[id number]) Patient has immunity to hepatitis B virus. Effective March 02, 2014 this test is being performed using the [employer] Chemiluminesence method. Quantitative results from this method should not be used interchangeably with other methods. 05/15/2014 1:18 PM EDT 05/15/2014 10:26 PM EDT Narrative Resulting Agency Comment [id number] Lea Klein MD LABORATORY Final Result Performing Organization Address [facility]/ZIP Co de Phone Number [facility] [address] [place] [address] * HEPATITIS B SURFACE ANTIGEN (05/15/2014 1:18 PM EDT) Hepatitis B virus surface Ag NON-REACTI VE NON-REACT CANDICE [facility] Comment:{HEPATITIS B SURFACE ANTIGEN {[id number]) 05/15/2014 1:18 PM EDT 05/15/2014 10:26 PM EDT Narrative Resulting Agency Comment [id number] Lea Klein MD LABORATORY Final Result Performing Organization Address City/[facility] Co de Phone Number [facility] [address] [place] [address] * HEPATITIS C ANTIBODY, SERUM (05/15/2014 1:18 PM EDT) Hepatitis C virus Ab NON-REACTI VE NON-REACT CANDICE [facility] Comment:{HEPATITIS C ANTIBOD Y {[id number]) Hepatitis C virus Ab Signal/Cutoff 0.03 <1.00 [facility] Comment:{SIGNAL TO CUT-OFF { [id number]) 05/15/2014 1:18 PM EDT 05/15/2014 10:26 PM EDT Narrative Resulting Agency Comment [id number] Lea Klein MD LABORATORY Final Result Performing Organization Address [facility] Co de Phone Number [facility] [address] [place] [address] * ASPARTATE AMINOTRANSFERASE (AST), SERUM (05/15/2014 1:18 PM EDT) AST (SGOT) 12 10 - 30 U/L [facility] Comment:{AST {[id number]) 05/15/2014 1:18 PM EDT 05/15/2014 10:26 PM EDT Narrative Resulting Agency Comment [id number] Lea Klein MD LAB SAME DAY RESULT Final Res ult Performing Organization Address City/[facility] Co de Phone Number [facility] [address] [place] [address] * ALANINE AMINOTRANSFERASE (ALT), SERUM (05/15/2014 1:18 PM EDT) ALT (SGPT) 12 6 - 29 U/L [facility] Comment:{ALT {[id number]) 05/15/2014 1:18 PM EDT 05/15/2014 10:26 PM EDT Narrative Resulting Agency Comment [id number] Lea Klein MD LAB SAME DAY RESULT Final Res ult [facility] [address] [place] [address] * (ABNORMAL) CBC INCLUDES DIFFERENTIAL AND PLATELET COUNT (05/15/2014 1:18 PM EDT) WBC 15.0(H) 3.8 - 10.8 Thousand/ uL [facility] Comment:{WHITE BLOOD CELL CO UNT {[id number]) RBC 4.71 3.80 - 5.10 Million/u L [facility] Comment:{RED BLOOD CELL COUN T {[id number]) Hemoglobin 15.2 11.7 - 15.5 g/dL [facility] Comment:{HEMOGLOBIN {[id number]) Hematocrit 45.7(H) 35.0 - 45.0 % [facility] Comment:{HEMATOCRIT {[id number]) MCV 97.1 80.0 - 100.0 fL [facility] Comment:{MCV {[id number]) MCH 32.3 27.0 - 33.0 pg [facility] Comment:{MCH {[id number]) MCHC 33.3 32.0 - 36.0 g/dL [facility] Comment:{MCHC {[id number]) RDW 14.9 11.0 - 15.0 % [facility] Comment:{RDW {[id number]) PLT 268 140 - 400 Thousand/ uL [facility] Comment:{PLATELET COUNT {[id number]) MPV 8.9 7.5 - 11.5 fL [facility] Comment:{MPV {[id number]) Neutrophils # 18178(H) 1500 - 7800 cells/uL [facility] Comment:{ABSOLUTE NEUTROPHIL S {[id number]) Lymphocytes # 2160 850 - 3900 cells/uL [facility] Comment:{ABSOLUTE LYMPHOCYTE S {[id number]) Monocytes # 720 200 - 950 cells/uL [facility] Comment:{ABSOLUTE MONOCYTES {[id number]) Eosinophils # 120 15 - 500 cells/uL [facility] Comment:{ABSOLUTE EOSINOPHIL S {[id number]) Basophils # 45 0 - 200 cells/uL [facility] Comment:{ABSOLUTE BASOPHILS {[id number]) Neutrophils % 79.7 % [facility] Comment:{NEUTROPHILS {[id number]) Lymphocytes % 14.4 % [facility] Comment:{LYMPHOCYTES {[id number]) Monocytes % 4.8 % [facility] Comment:{MONOCYTES {[id number]) Eosinophils % 0.8 % [facility] Comment:{EOSINOPHILS {[id number]) Basophils % 0.3 % [facility] Comment:{BASOPHILS {[id number]) 05/15/2014 1:18 PM EDT 05/15/2014 10:26 PM EDT Narrative Resulting Agency Comment [id number] Lea Klein MD LAB SAME DAY RESULT Final Res ult [facility] [address] [place] [address] * BASIC METABOLIC PANEL WITH (GFR) (05/15/2014 1:18 PM EDT) Glucose 88 65 - 99 mg/dL [facility] Comment: {GLUCOSE {[id number]) ? Fasting reference interval Urea Nitrogen Blood (BUN) 15 7 - 25 mg/dL [facility] Comment:{UREA NITROGEN (BUN) {[id number]) Creatinine 0.62 0.50 - 1.10 mg/dL [facility] Comment:{CREATININE {[id number]) GFR 122 > OR = 60 mL/min/1. 73m2 [facility] Comment:{eGFR NON-AFR. AMERI CAN {[id number]) GFR () 141 > OR = 60 mL/min/1. 73m2 [facility] Comment:{eGFR AMERIC AN {[id number]) BUN/Creatinine Ratio NOT APPLICABLE 6 - 22 (calc) [facility] Comment:{BUN/CREATININE RATI O {[id number]) Sodium 140 135 - 146 mmol/L [facility] Comment:{SODIUM {[id number]) Potassium 3.9 3.5 - 5.3 mmol/L [facility] Comment:{POTASSIUM {[id number]) Chloride 106 98 - 110 mmol/L [facility] Comment:{CHLORIDE {[id number]) Carbon dioxide 23 19 - 30 mmol/L [facility] Comment:{CARBON DIOXIDE {[id number]) Calcium 9.4 8.6 - 10.2 mg/dL [facility] Comment:{CALCIUM {[id number]) 05/15/2014 1:18 PM EDT 05/15/2014 10:26 [...] needs for GFR calculation. Resulting Agency Comment [id number] us Lea Klein MD LABORATORY Final Result [facility] [address] [place] [address] documented in this encounter Visit Diagnoses Diagnosis Screening for diabetes mellitus Leukocytosis Leukocytosis, unspecified Screening for lipoid disorders Screening examination for sexually transmitted disease Screening examination for venereal disease Urinary tract infection Urinary tract infection, site not specified documented in this encounter Care Teams Auto Slip Cover Installer Relationship Specialty Start Date End Date Lea Klein MD PCP - General Internal Medicine 01/20/13 05/17/14 Za Guerrero MD PCP - General Internal Medicine 05/18/14 02/03/16 Unknown Pcp, Non [facility] PCP - General 02/04/16 documented as of this encounter
[2025-03-19 13:35] LABS: MANUAL DIFF FLAG NO
[2025-03-19 13:43] LABS: Basophils Percent Auto 0.2 % (0-2); Eosinophils Absolute Auto 0.1 X10*3/uL (0.0-0.4); Hematocrit 43.1 % (37.0-47.0); Hemoglobin 14.4 g/dl (12.0-16.0); Imm Gran Abs Auto 0.05 X10*3/uL (0.00-0.03); Imm Gran Pct Auto 0.4 % (0.0-0.4); Lymphocytes Absolute Auto 2.3 X10*3/uL (1.2-4.9); Lymphocytes Percent Auto 16.8 % (20-40); Mean Corpuscular HGB Conc 33.4 g/dl (31.0-35.0); Mean Corpuscular Hemoglobin 31.6 pg (27.0-33.0); Mean Corpuscular Volume 94.5 fL (80.0-98.0); Mean Platelet Volume 10.1 fL (9.4-12.3); Monocytes Absolute Auto 0.6 X10*3/uL (0.1-1.2); Monocytes Percent Auto 4.5 % (2-11); Neutrophils Absolute Auto 10.4 x10*3/uL (2.0-8.3); Neutrophils Percent Auto 77.1 % (45-73); Platelet Count 320 X10*3/uL (160-400); Red Blood Count 4.56 X10*6/uL (4.20-5.50); Red Cell Distribution Width 13.9 % (11.0-16.0); White Blood Count 13.5 X10*3/uL (4.8-10.8)
[2025-03-19 13:59] LABS: Estimated Average Glucose 105 mg/dL; Hemoglobin A1c % 5.3 % (<6.0)
[2025-03-19 14:28] LABS: Alanine Aminotransferase 16 U/L (0-31); Albumin Level 4.4 g/dL (3.5-5.0); Alkaline Phosphatase 89 U/L (39-117); Anion Gap 11 (12-20); Aspartate Amino Transferase 18 U/L (5-31); Bilirubin Total 0.6 mg/dL (0.0-1.0); Blood Urea Nitrogen 13 mg/dL (9-16); Calcium 9.2 mg/dL (8.4-10.2); Carbon Dioxide 24 mmol/L (22-29); Chloride 111 mmol/L (96-108); Cholesterol 189 mg/dL (<200); Estimated Glomerular Filt Rate > 60; Glucose Fasting 99 mg/dL (60-99); HDL Cholesterol 34 mg/dL (>40); LDL Cholesterol Calculated 126 mg/dL (<100); Potassium 3.8 mmol/L (3.3-5.1); Sodium 142 mmol/L (135-145); Triglycerides 145 mg/dL (<150)
[2025-03-19 14:32] LABS: Vitamin B12 543 pg/mL (200-900)
[2025-03-19 14:33] LABS: HBS Num1 112.69 mIU/mL (0-7.99); TSH reflex Free T4 0.83 uIU/mL (0.32-4.0); ~Hepatitis B Surface Antibody REACTIVE (Nonreactive)
[2025-03-20 16:13] LABS: Anti DNA DS Antibody <1 IU/mL
[2025-03-23 16:28] LABS: Vitamin D 25-OH, D2 <4 ng/mL; Vitamin D 25-OH, D3 9 ng/mL; Vitamin D 25-OH, Total 9 ng/mL (30-100)
== END 2025-03-19 10:22 | disposition home or self-care (01) ==
LOC: HO.HMGCLDS 10:21
PROVIDERS: PCP Internal Medicine; Visit Provider Internal Medicine
DX: Z00.01 Encounter for general adult medical examination with abnormal findings (principal); Z28.39 Other underimmunization status; R76.8 Other specified abnormal immunological findings in serum; R73.01 Impaired fasting glucose; F43.9 Reaction to severe stress, unspecified; Z13.6 Encounter for screening for cardiovascular disorders
CPT/HCPCS: 36415; 80053; 80061; 82306; 82607; 83036; 84443; 85025; 86225; 86706

== ENCOUNTER 2025-04-13 15:18 | Outpatient (AMB) | payer BC, SELFPAY ==
[2025-04-13 15:21] VITALS: BP 132/76; PULSE 116; TEMP 36.9; O2SAT 97; BMI 24.0
--- NOTE | 2025-04-13 15:21 | AM.OFFWIN_ITS ---
Intake Vital Signs 04/13/25 15:21 Height 5 ft 1 in Weight 127 lb BMI 24.0 BP 132/76 Blood Pressure Location Lt brachial Position Sitting Pulse 116 H Pulse Source Pulse Oximeter Temp 98.5 F Temp Source Oral Pulse Oximetry (%) 97 Oxygen Delivery Method Room Air Intake Visit Reasons: EP muscle pain on RT arm Patient Tobacco Use Status: Current everyday Tobacco user Pre Sales Architect Required: No Allergies No Known Allergies Allergy (Verified 04/13/25 15:26) Do you need a note to return to daycare/school/sports/work: Yes HPI HPI Comments History of Present Illness Details 39 y/o Female patient who presents to [facility] walk in clinic with c/o Right sided Shoulder and upper back pain since . She believes she must have slept wrong on that side the night before . She has been using Advil with minimal relief. Denies trauma or injury to the shoulder. [facility] Medical History (Updated 04/13/25 @ 15:42 by Lizeth De La Rosa NP) Muscle strain of right scapular region Surgical History Hx of tubal ligation Family History Daughter Anxiety ADHD Depression Mother Substance use disorder Social History Housing: House Patient Tobacco Use Status: Current everyday Tobacco user Tobacco use type: Cigarette Cigarettes Per Day: 10 e-Cigarette/Vaping Use: Never Used service: No Current occupational status: employed Current occupational exposures/hazards: No Cognitive needs: No Hearing needs: No Vision needs: Yes Review of Systems Const All systems reviewed & are unremarkable except as noted in HPI and below Physical Exam Vital Signs: Last Vital Signs Temp 98.5 F 04/13/25 15:21 Pulse 116 H 04/13/25 15:21 BP 132/76 04/13/25 15:21 Pulse Ox 97 04/13/25 15:21 Oxygen Delivery Method Room Air 04/13/25 15:21 BMI result Body Mass Index 24.0 Const General: no acute distress; No comfortable Nutritional Appearance: thin Orientation/consciousness: patient oriented x3 Resp Effort & Inspection: normal respiratory effort Auscultation: clear to auscultation bilaterally Cardio Heart sounds: S1 normal heart sound present and S2 normal heart sound present Back/Spine/Pelvis Thoracic/Lumbar Spine: paraspinal muscle tenderness and thoracic spinal ten derness at T1 and at T2 Neuro General: patient oriented x3 Extrem Right upper extremity: normal capillary refill and shoulder/upper arm Details: normal to inspection, tenderness Location: of the scapula and over the deltoid bursa and normal ROM; no swelling, no ecchymosis, no crepitus and no deformity Psych Speech and movement: Normal speech and movement present Assessment & Plan Assessment & Plan (1) Muscle strain of right scapular region: Code(s): S46.911A - Strain of unspecified muscle, fascia and tendon at shoulder and upper arm level, right arm, initial encounter Qualifiers: Encounter type: initial encounter Qualified Code(s): S46.911A - Strain of unspecified muscle, fascia and tendon at shoulder and upper arm level, right arm, initial encounter Plan: DDx s: Strain vs Sprain scapula muscle Ordered Flexeril Ice/Hot NSAIDs and Acetaminophen for pain relief. Medications: New cyclobenzaprine 10 mg PO BEDTIME 20 tabs 0RF S46.911A - Strain of unspecified muscle, fascia and tendon at shoulder and upper arm level, right arm, initial encounter ibuprofen 800 mg PO Q8H 20 tabs 0RF S46.911A - Strain of unspecified muscle, fascia and tendon at shoulder and upper arm level, right arm, initial encounter Coding Level of Care Code Est Pt Level 4 (14247) Diagnoses Muscle strain of right scapular region, initial encounter S46.911A Encounter type: initial encounter Time Spent (min) 20
--- OUTSIDE RECORDS SUMMARY | 2025-04-13 16:51 | XMS_ITS | Encounter Summary ---
Author Organization [facility] Address [address] [place] [address] Care Team Providers Care Assembly Riveter Name Role Phone Lea Klein MD Primary Care Provider [phone] Za Guerrero MD Primary Care Provider [phone] Unknown Pcp, Non Rmg Primary Care Provider Unava ilable Encounter Details Date Type Department Care Team ([facility] st Contact Info) Description 05/15/2014 Orders Only [facility] Internal Medicine [address] [place] [address] Lea Klein MD [facility] [address] [place] [address] Social History Tobacco Use Types Packs/Day [...] this encounter Procedures * Due to [place] state law, this organization might not be [...] this encounter Results * Due to [place] state law, this organization might not be sharing negative HIV tests. * (ABNORMAL) URINALYSIS, DIP ONLY ( SITE STAT ONLY) (05/15/2014 1:43 PM EDT) COLOR (URINE) DUSTIN(A) [facility] (CLIA# [id number]) APPEARANCE (URINE) TURBID(A) [facility] (CLIA# [id number]) SPECIFIC GRAVITY 1.025 1.001 - 1.035 [facility] (CLIA# [id number]) PH (URINE) 6.5 5.0 - 8.0 [facility] (CLIA# [id number]) PROTEIN (URINE) 2+(A) Neg [facility] (CLIA# [id number]) GLUCOSE (URINE) NEGATIVE Neg [facility] (CLIA# [id number]) Ketones (Urine) NEGATIVE Neg [facility] (CLIA# [id number]) BILIRUBIN (URINE) NEGATIVE Neg [facility] (CLIA# [id number]) BLOOD (URINE) 3+(A) Neg [facility] (CLIA# [id number]) WBC (URINE) 3+(A) Neg [facility] (CLIA# [id number]) NITRITE (URINE) POSITIVE(A) Neg [facility] (CLIA# [id number]) Urine specimen (specimen) 05/15/2014 1:43 PM EDT Lea Klein MD LAB SAME DAY RESULT Final Res ult [facility] (CLIA# [id number]) [address] [place] [address] * (ABNORMAL) CULTURE, URINE, ROUTINE (05/15/2014 1:18 PM EDT) Bacteria culture (Urine) SEE NOTE(A) [facility] Comment: {CULTURE, URINE, ROUTINE {[id number]) CULTURE, URINE, ROUTINE MICRO NUMBER: [id number] TEST STATUS: FINAL SPECIMEN SOURCE: URINE SPECIMEN QUALITY: ADEQUATE RESULT: Greater than 100,000 CFU/mL of Proteus mirabilis This organism may show imipenem resistance by mechanisms other than a carbapenemase. P.mirabilis INT GALA AMOX/CLAVULANATE S <=2 AMPICILLIN S <=2 AMP/SULBACTAM S <=2 CEFAZOLIN S <=4 CEFEPIME S <=1 CEFTRIAXONE S <=1 CIPROFLOXACIN S <=0.25 ERTAPENEM S <=0.5 GENTAMICIN S <=1 IMIPENEM I 2 LEVOFLOXACIN S <=0.12 NITROFURANTOIN R 128 PIP/TAZOBACTAM S <=4 TOBRAMYCIN S <=1 TRIMETHOPRIM/SULFA S <=20 S=Susceptible I=Intermediate R=Resistant * = Not Tested NR = Not Reported NN = See Therapy Comments 05/15/2014 1:18 PM EDT 05/15/2014 10:26 PM EDT Narrative Resulting Agency Comment [id number] Lea Klein MD LABORATORY Final Result [facility] [address] [place] [address] * (ABNORMAL) URINALYSIS, MICROSCOPIC (05/15/2014 1:18 PM EDT) WBC (Urine) PACKED(A) < OR = 5 /HPF [facility] Comment:{WBC {[id number]) RBC (Urine Sed) 20-40(A) < OR = 3 /HPF [facility] Comment:{RBC {[id number]) Epithelial cells.squamous (Urine sed) 0-5 < OR = 5 /HPF [facility] Comment:{SQUAMOUS EPITHELIAL CELLS {[id number]) Bacteria (Urine) MANY(A) NONE SEEN /HPF [facility] Comment:{BACTERIA {[id number]) Amorphous sediment (Urine sed) FEW NONE OR FEW /HPF [facility] Comment:{AMORPHOUS SEDIMENT {[id number]) Hyaline casts (Urine sed) NONE SEEN NONE SEEN /LPF [facility] Comment:{HYALINE CAST {[id number]) 05/15/2014 1:18 PM EDT 05/15/2014 10:26 PM EDT Narrative Resulting Agency Comment [id number] Lea Klein MD LAB SAME DAY RESULT Final Res ult Performing Organization Address [facility] Co de Phone Number [facility] [address] [place] [address] * RPR, (RAPID PLASMIN REAGIN) WITH REFLEX TO FTA, DIAGNOSTIC (05/15/2014 1:18 PM EDT) Reagin Ab NON-REACT CANDICE NON-REACT CANDICE [facility] Comment:{RPR (DX) W/REFL TIT ER AND CONFIRMATORY TESTING {[id number]) 05/15/2014 1:18 PM EDT 05/15/2014 10:26 PM EDT Narrative Resulting Agency Comment [id number] Lea Klein MD LABORATORY Final Result Performing Organization Address [facility] Co de Phone Number [facility] [address] [place] [address] * HEPATITIS B SURFACE ANTIBODY, QUANTITATIVE (05/15/2014 1:18 PM EDT) Hepatitis B virus surface Ab 717 mIU/mL [facility] Comment: {HEPATITIS B SURFACE ANTIBODY (QUANT) {[id number]) Patient has immunity to hepatitis B virus. Effective March 02, 2014 this test is being performed using the [employer] Chemiluminesence method. Quantitative results from this method should not be used interchangeably with other methods. 05/15/2014 1:18 PM EDT 05/15/2014 10:26 PM EDT Narrative Resulting Agency Comment [id number] Lea Klein MD LABORATORY Final Result Performing Organization Address City/[facility]/ZIP Co de Phone Number [facility] [address] [place] [address] * HEPATITIS B SURFACE ANTIGEN (05/15/2014 1:18 PM EDT) Hepatitis B virus surface Ag NON-REACTI VE NON-REACT CANDICE [facility] Comment:{HEPATITIS B SURFACE ANTIGEN {[id number]) 05/15/2014 1:18 PM EDT 05/15/2014 10:26 PM EDT Narrative Resulting Agency Comment [id number] Lea Klein MD LABORATORY Final Result Performing Organization Address [facility] de Phone Number [facility] [address] [place] [address] * HEPATITIS C ANTIBODY, SERUM (05/15/2014 1:18 PM EDT) Hepatitis C virus Ab NON-REACTI VE NON-REACT CANDICE [facility] Comment:{HEPATITIS C ANTIBOD Y {[id number]) Hepatitis C virus Ab Signal/Cutoff 0.03 <1.00 [facility] Comment:{SIGNAL TO CUT-OFF { [id number]) 05/15/2014 1:18 PM EDT 05/15/2014 10:26 PM EDT Narrative Resulting Agency Comment [id number] Lea Klein MD LABORATORY Final Result Performing Organization Address City/[facility] Co de Phone Number [facility] [address] [place] [address] * ASPARTATE AMINOTRANSFERASE (AST), SERUM (05/15/2014 1:18 PM EDT) AST (SGOT) 12 10 - 30 U/L [facility] Comment:{AST {[id number]) 05/15/2014 1:18 PM EDT 05/15/2014 10:26 PM EDT Narrative Resulting Agency Comment [id number] Lea Klein MD LAB SAME DAY RESULT Final Res ult [facility] [address] [place] [address] * ALANINE AMINOTRANSFERASE (ALT), SERUM (05/15/2014 1:18 PM EDT) ALT (SGPT) 12 6 - 29 U/L [facility] Comment:{ALT {[id number]) 05/15/2014 1:18 PM EDT 05/15/2014 10:26 PM EDT Narrative Resulting Agency Comment [id number] Lea Klein MD LAB SAME DAY RESULT Final Res ult Performing Organization Address [facility] de Phone Number [facility] [address] [place] [address] * (ABNORMAL) CBC INCLUDES DIFFERENTIAL AND PLATELET COUNT (05/15/2014 1:18 PM EDT) WBC 15.0(H) 3.8 - 10.8 Thousand/ uL [facility] Comment:{WHITE BLOOD CELL CO UNT {[id number]) RBC 4.71 3.80 - 5.10 Million/u L [facility] Comment:{RED BLOOD CELL COUN T {[id number]) Hemoglobin 15.2 11.7 - 15.5 g/dL [facility] Comment:{HEMOGLOBIN {[id number]) Hematocrit 45.7(H) 35.0 - 45.0 % [facility] Comment:{HEMATOCRIT {[id number]) MCV 97.1 80.0 - 100.0 fL [facility] Comment:{MCV {[id number]) MCH 32.3 27.0 - 33.0 pg [facility] Comment:{MCH {[id number]) MCHC 33.3 32.0 - 36.0 g/dL [facility] Comment:{MCHC {[id number]) RDW 14.9 11.0 - 15.0 % [facility] Comment:{RDW {[id number]) PLT 268 140 - 400 Thousand/ uL [facility] Comment:{PLATELET COUNT {[id number]) MPV 8.9 7.5 - 11.5 fL [facility] Comment:{MPV {[id number]) Neutrophils # 40434(H) 1500 - 7800 cells/uL [facility] Comment:{ABSOLUTE NEUTROPHIL S {[id number]) Lymphocytes # 2160 850 - 3900 cells/uL [facility] Comment:{ABSOLUTE LYMPHOCYTE S {[id number]) Monocytes # 720 200 - 950 cells/uL [facility] Comment:{ABSOLUTE MONOCYTES {[id number]) Eosinophils # 120 15 - 500 cells/uL [facility] Comment:{ABSOLUTE EOSINOPHIL S {[id number]) Basophils # 45 0 - 200 cells/uL [facility] Comment:{ABSOLUTE BASOPHILS {[id number]) Neutrophils % 79.7 % [facility] Comment:{NEUTROPHILS {[id number]) Lymphocytes % 14.4 % [facility] Comment:{LYMPHOCYTES {[id number]) Monocytes % 4.8 % [facility] Comment:{MONOCYTES {[id number]) Eosinophils % 0.8 % [facility] Comment:{EOSINOPHILS {[id number]) Basophils % 0.3 % [facility] Comment:{BASOPHILS {[id number]) 05/15/2014 1:18 PM EDT 05/15/2014 10:26 PM EDT Narrative Resulting Agency Comment [id number] us Lea Klein MD LAB SAME DAY RESULT Final Res ult [facility] [address] [place] [address] * BASIC METABOLIC PANEL WITH (GFR) (05/15/2014 1:18 PM EDT) Glucose 88 65 - 99 mg/dL [facility] Comment: {GLUCOSE {[id number]) Fasting reference interval Urea Nitrogen Blood (BUN) 15 7 - 25 mg/dL [facility] Comment:{UREA NITROGEN (BUN) {[id number]) Creatinine 0.62 0.50 - 1.10 mg/dL [facility] Comment:{CREATININE {[id number]) GFR 122 > OR = 60 mL/min/1. 73m2 [facility] Comment:{eGFR NON-AFR. AMERI CAN {[id number]) GFR () 141 > OR = 60 mL/min/1. 73m2 [facility] Comment:{eGFR AMERIC AN {[id number]) BUN/Creatinine Ratio NOT APPLICABLE 6 (calc) [facility] Comment:{BUN/CREATININE RATI O {[id number]) Sodium 140 135 - 146 mmol/L [facility] Comment:{SODIUM {[id number]) Potassium 3.9 3.5 - 5.3 mmol/L [facility] Comment:{POTASSIUM {[id number]) Chloride 106 98 - 110 mmol/L [facility] Comment:{CHLORIDE {[id number]) Carbon dioxide 23 19 - 30 mmol/L [facility] Comment:{CARBON DIOXIDE {[id number]) Calcium 9.4 8.6 - 10.2 mg/dL [facility] Comment:{CALCIUM {[id number]) 05/15/2014 1:18 PM EDT 05/15/2014 10:26 [...] needs for GFR calculation. Resulting Agency Comment [id number] us Lea Klein MD LABORATORY Final Result [facility] [address] [place] [address] documented in this encounter Visit Diagnoses Diagnosis Screening for diabetes mellitus Leukocytosis Leukocytosis, unspecified Screening for lipoid disorders Screening examination for sexually transmitted disease Screening examination for venereal disease Urinary tract infection Urinary tract infection, site not specified documented in this encounter Care Teams Assembly Riveter Relationship Specialty Start Date End Date Lea Klein MD PCP - General Internal Medicine 01/20/13 05/17/14 Za Guerrero MD PCP - General Internal Medicine 05/18/14 02/03/16 Unknown Pcp, Non Rmg PCP - General 02/04/16 documented as of this encounter
== END 2025-04-13 15:44 | disposition home or self-care (01) ==
PROVIDERS: PCP Internal Medicine; Visit Provider Nurse Practitioner Family
DX: S46.911A Strain of unspecified muscle, fascia and tendon at shoulder and upper arm level, right arm, initial encounter (principal)

== ENCOUNTER → 2025-04-13 15:18 | Outpatient (BNVA) | payer BC, SELFPAY | PROVIDERS: PCP Internal Medicine; Visit Provider Nurse Practitioner Family | DX: Z13.89 Encounter for screening for other disorder (principal) ==

== ENCOUNTER 2025-06-23 10:34 | Outpatient (REF) | payer BC, SELFPAY ==
--- OUTSIDE RECORDS SUMMARY | 2025-06-23 12:05 | XMS_ITS | Encounter Summary ---
Author Organization [facility] Address [address] [place] [address] Care Team Providers Care Learning And Development Administrator Name Role Phone Unknown Pcp, Non Rmg Primary Care Provider Unava ilable Encounter Details Date Type Department Care Team ([facility] st Contact Info) Description 08/15/2016 Orders Only [facility] [address] [place] [address] Unknown Pcp, Non Rmg Social History Tobacco [...] on filedocumented in this encounter Care Teams Learning And Development Administrator Relationship Specialty Start Date End Date Unknown Pcp, Non Rmg PCP - General 02/04/16 documented as of this encounter
--- OUTSIDE RECORDS SUMMARY | 2025-06-23 12:05 | XMS_ITS | Encounter Summary ---
Author Organization [facility] Address [address] [place] [address] Care Team Providers Care Glue Mill Operator Name Role Phone Lea Klein MD Primary Care Provider [phone] Za Guerrero MD Primary Care Provider [phone] Unknown Pcp, Non Rmg Primary Care Provider Unava ilable Encounter Details Date Type Department Care Team ([facility] st Contact Info) Description 05/15/2014 Orders Only [facility] Internal Medicine [address] [place] [address] Lea Klein MD [facility] [address] [place] [address] Social History Tobacco Use Types Packs/Day [...] Note: Book NPP - Thanks * Susie yT - 05/18/2014 1:11 PM EDTQuick Note: New pcp is Dr Guerrero . Results sent to new pcp documented in this encounter Plan of Treatment Not on file documented as of this encounter Procedures * Due to [place] state law, this organization might not be [...] in this encounter Results * Due to [place] state law, this organization might not be sharing negative HIV tests. * (ABNORMAL) URINALYSIS, DIP ONLY ( SITE STAT ONLY) (05/15/2014 1:43 PM EDT) COLOR (URINE) DUSTIN(A) [facility] [employer] [facility] (CLIA# [id number]) APPEARANCE (URINE) TURBID(A) [facility] (CLIA# [id number]) SPECIFIC GRAVITY 1.025 1.001 - 1.035 [facility] (CLIA# [id number]) PH (URINE) 6.5 5.0 - 8.0 [facility] (CLIA# [id number]) PROTEIN (URINE) 2+(A) Neg [facility] (CLIA# [id number]) GLUCOSE (URINE) NEGATIVE Neg [facility] (CLIA# [id number]) Ketones (Urine) NEGATIVE Neg [facility] (CLIA# [id number]) BILIRUBIN (URINE) NEGATIVE Neg [facility] (CLIA# [id number]) BLOOD (URINE) 3+(A) Neg [facility] (CLIA# [id number]) WBC (URINE) 3+(A) Neg [facility] (CLIA# [id number]) NITRITE (URINE) POSITIVE(A) Neg [facility] (CLIA# [id number]) Urine specimen (specimen) 05/15/2014 1:43 PM EDT Lea Klein MD LAB SAME DAY RESULT Final Res ult [facility] (CLIA# [id number]) [address] [place] [address] * (ABNORMAL) CULTURE, URINE, ROUTINE (05/15/2014 1:18 PM EDT) Bacteria culture (Urine) SEE NOTE(A) [facility] Comment: {CULTURE, URINE, ROUTINE {[id number]) CULTURE, URINE, ROUTINE MICRO NUMBER: [id number] TEST STATUS: FINAL SPECIMEN SOURCE: URINE SPECIMEN [...] 10:26 PM EDT Narrative Resulting Agency Comment [id number] Lea Klein MD LABORATORY Final Result [facility] [address] [place] [address] * (ABNORMAL) URINALYSIS, MICROSCOPIC (05/15/2014 1:18 PM EDT) WBC (Urine) PACKED(A) < OR = 5 /HPF [facility] Comment:{WBC {[id number]) RBC (Urine Sed) 20-40(A) < OR = 3 /HPF [facility] Comment:{RBC {[id number]) Epithelial cells.squamous (Urine sed) 0-5 < OR = 5 /HPF [facility] Comment:{SQUAMOUS EPITHELIAL CELLS {[id number]) Bacteria (Urine) MANY(A) NONE SEEN /HPF [facility] Comment:{BACTERIA {[id number]) Amorphous sediment (Urine sed) FEW NONE OR FEW /HPF [facility] Comment:{AMORPHOUS SEDIMENT {[id number]) Hyaline casts (Urine sed) NONE SEEN NONE SEEN /LPF [facility] Comment:{HYALINE CAST {[id number]) 05/15/2014 1:18 PM EDT 05/15/2014 10:26 PM EDT Narrative Resulting Agency Comment [id number] Lea Klein MD LAB SAME DAY RESULT Final Res ult Performing Organization Address [facility] Co de Phone Number [facility] [address] [place] [address] * RPR, (RAPID PLASMIN REAGIN) WITH REFLEX TO FTA, DIAGNOSTIC (05/15/2014 1:18 PM EDT) Reagin Ab NON-REACT CANDICE NON-REACT CANDICE [facility] Comment:{RPR (DX) W/REFL TIT ER AND CONFIRMATORY TESTING {[id number]) 05/15/2014 1:18 PM EDT 05/15/2014 10:26 PM EDT Narrative Resulting Agency Comment [id number] Lea Klein MD LABORATORY Final Result Performing Organization Address [facility] Co de Phone Number [facility] [address] [place] [address] * HEPATITIS B SURFACE ANTIBODY, QUANTITATIVE (05/15/2014 1:18 PM EDT) Hepatitis B virus surface Ab 717 mIU/mL [facility] Comment: {HEPATITIS B SURFACE ANTIBODY (QUANT) {[id number]) Patient has immunity to hepatitis B virus. Effective March 02, 2014 this test is being performed using the [employer] Chemiluminesence method. Quantitative results from this method should not be used interchangeably with other methods. 05/15/2014 1:18 PM EDT 05/15/2014 10:26 PM EDT Narrative Resulting Agency Comment [id number] Lea Klein MD LABORATORY Final Result Performing Organization Address City/[facility]/ZIP Co de Phone Number [facility] [address] [place] [address] * HEPATITIS B SURFACE ANTIGEN (05/15/2014 1:18 PM EDT) Hepatitis B virus surface Ag NON-REACTI VE NON-REACT CANDICE [facility] Comment:{HEPATITIS B SURFACE ANTIGEN {[id number]) 05/15/2014 1:18 PM EDT 05/15/2014 10:26 PM EDT Narrative Resulting Agency Comment [id number] Lea Klein MD LABORATORY Final Result Performing Organization Address [facility] de Phone Number [facility] [address] [place] [address] * HEPATITIS C ANTIBODY, SERUM (05/15/2014 1:18 PM EDT) Hepatitis C virus Ab NON-REACTI VE NON-REACT CANDICE [facility] Comment:{HEPATITIS C ANTIBOD Y {[id number]) Hepatitis C virus Ab Signal/Cutoff 0.03 <1.00 [facility] Comment:{SIGNAL TO CUT-OFF { [id number]) 05/15/2014 1:18 PM EDT 05/15/2014 10:26 PM EDT Narrative Resulting Agency Comment [id number] Lea Klein MD LABORATORY Final Result Performing Organization Address City/[facility] Co de Phone Number [facility] [address] [place] [address] * ASPARTATE AMINOTRANSFERASE (AST), SERUM (05/15/2014 1:18 PM EDT) AST (SGOT) 12 10 - 30 U/L [facility] Comment:{AST {[id number]) 05/15/2014 1:18 PM EDT 05/15/2014 10:26 PM EDT Narrative Resulting Agency Comment [id number] Lea Klein MD LAB SAME DAY RESULT Final Res ult [facility] [address] [place] [address] * ALANINE AMINOTRANSFERASE (ALT), SERUM (05/15/2014 1:18 PM EDT) ALT (SGPT) 12 6 - 29 U/L [facility] Comment:{ALT {[id number]) 05/15/2014 1:18 PM EDT 05/15/2014 10:26 PM EDT Narrative Resulting Agency Comment [id number] Lea Klein MD LAB SAME DAY RESULT Final Res ult Performing Organization Address [facility] de Phone Number [facility] [address] [place] [address] * (ABNORMAL) CBC INCLUDES DIFFERENTIAL AND PLATELET COUNT (05/15/2014 1:18 PM EDT) WBC 15.0(H) 3.8 - 10.8 Thousand/ uL [facility] Comment:{WHITE BLOOD CELL CO UNT {[id number]) RBC 4.71 3.80 - 5.10 Million/u L [facility] Comment:{RED BLOOD CELL COUN T {[id number]) Hemoglobin 15.2 11.7 - 15.5 g/dL [facility] Comment:{HEMOGLOBIN {[id number]) Hematocrit 45.7(H) 35.0 - 45.0 % [facility] Comment:{HEMATOCRIT {[id number]) MCV 97.1 80.0 - 100.0 fL [facility] Comment:{MCV {[id number]) MCH 32.3 27.0 - 33.0 pg [facility] Comment:{MCH {[id number]) MCHC 33.3 32.0 - 36.0 g/dL [facility] Comment:{MCHC {[id number]) RDW 14.9 11.0 - 15.0 % [facility] Comment:{RDW {[id number]) PLT 268 140 - 400 Thousand/ uL [facility] Comment:{PLATELET COUNT {[id number]) MPV 8.9 7.5 - 11.5 fL [facility] Comment:{MPV {[id number]) Neutrophils # 87964(H) 1500 - 7800 cells/uL [facility] Comment:{ABSOLUTE NEUTROPHIL S {[id number]) Lymphocytes # 2160 850 - 3900 cells/uL [facility] Comment:{ABSOLUTE LYMPHOCYTE S {[id number]) Monocytes # 720 200 - 950 cells/uL [facility] Comment:{ABSOLUTE MONOCYTES {[id number]) Eosinophils # 120 15 - 500 cells/uL [facility] Comment:{ABSOLUTE EOSINOPHIL S {[id number]) Basophils # 45 0 - 200 cells/uL [facility] Comment:{ABSOLUTE BASOPHILS {[id number]) Neutrophils % 79.7 % [facility] Comment:{NEUTROPHILS {[id number]) Lymphocytes % 14.4 % [facility] Comment:{LYMPHOCYTES {[id number]) Monocytes % 4.8 % [facility] Comment:{MONOCYTES {[id number]) Eosinophils % 0.8 % [facility] Comment:{EOSINOPHILS {[id number]) Basophils % 0.3 % [facility] Comment:{BASOPHILS {[id number]) 05/15/2014 1:18 PM EDT 05/15/2014 10:26 PM EDT Narrative Resulting Agency Comment [id number] us Lea Klein MD LAB SAME DAY RESULT Final Res ult [facility] [address] [place] [address] * BASIC METABOLIC PANEL WITH (GFR) (05/15/2014 1:18 PM EDT) Glucose 88 65 - 99 mg/dL [facility] Comment: {GLUCOSE {[id number]) Fasting reference interval Urea Nitrogen Blood (BUN) 15 7 - 25 mg/dL [facility] Comment:{UREA NITROGEN (BUN) {[id number]) Creatinine 0.62 0.50 - 1.10 mg/dL [facility] Comment:{CREATININE {[id number]) GFR 122 > OR = 60 mL/min/1. 73m2 [facility] Comment:{eGFR NON-AFR. AMERI CAN {[id number]) GFR () 141 > OR = 60 mL/min/1. 73m2 [facility] Comment:{eGFR AMERIC AN {[id number]) BUN/Creatinine Ratio NOT APPLICABLE 6 (calc) [facility] Comment:{BUN/CREATININE RATI O {[id number]) Sodium 140 135 - 146 mmol/L [facility] Comment:{SODIUM {[id number]) Potassium 3.9 3.5 - 5.3 mmol/L [facility] Comment:{POTASSIUM {[id number]) Chloride 106 98 - 110 mmol/L [facility] Comment:{CHLORIDE {[id number]) Carbon dioxide 23 19 - 30 mmol/L [facility] Comment:{CARBON DIOXIDE {[id number]) Calcium 9.4 8.6 - 10.2 mg/dL [facility] Comment:{CALCIUM {[id number]) 05/15/2014 1:18 PM EDT 05/15/2014 10:26 [...] needs for GFR calculation. Resulting Agency Comment [id number] us Lea Klein MD LABORATORY Final Result [facility] [address] [place] [address] documented in this encounter Visit Diagnoses Diagnosis Screening for diabetes mellitus Leukocytosis Leukocytosis, unspecified Screening for lipoid disorders Screening examination for sexually transmitted disease Screening examination for venereal disease Urinary tract infection Urinary tract infection, site not specified documented in this encounter Care Teams Glue Mill Operator Relationship Specialty Start Date End Date Lea Klein MD PCP - General Internal Medicine 01/20/13 05/17/14 Za Guerrero MD PCP - General Internal Medicine 05/18/14 02/03/16 Unknown Pcp, Non Rmg PCP - General 02/04/16 documented as of this encounter
--- OUTSIDE RECORDS SUMMARY | 2025-06-23 12:05 | XMS_ITS | Encounter Summary ---
Author Organization [facility] Address [address] [place] [address] Care Team Providers Care Manager Educational Name Role Phone Za Guerrero MD Primary Care Provider [phone] Unknown Pcp, Non [facility] Primary Care Provider Unava ilable Encounter Details Date Type Department Care Team (Late st Contact Info) Description 05/18/2014 Orders Only February Internal Medicine [address] [place] [id number] Za Guerrero MD [address] [place] [id number] Social History Tobacco Use Types Packs/Day Years [...] on filedocumented in this encounter Care Teams Manager Educational Relationship Specialty Start Date End Date Za Guerrero MD PCP - General Internal Medicine 05/18/14 02/03/16 Unknown Pcp, Non [facility] PCP - General 02/04/16 documented as of this encounter
--- OUTSIDE RECORDS SUMMARY | 2025-06-23 12:05 | XMS_ITS | Clinical Summary ---
Author Organization [facility] Address [address] [place] [address] Care Team Providers Care Foam Molder Name Role Phone Unknown Pcp, Non Rmg [...] injury 06/09/2014 Smoking 02/25/2013 Menorrhagia 02/12/2013 Immunizations Immunization Administration Dates Next Due PPV23 (Pneumovax) 06/09/2014 [...] 92 06/09/2014 2:13 PM EDT Temperature 37 C (98.6 F) 02/25/2013 2:32 PM EDT Respiratory Rate - - Oxygen [...] (2 - Td or Tdap) 06/09/2024 06/09/2014 Mammogram/Breast Imaging 2024 COVID-19 Vaccine ( - 2023-2 5 season) 2025 Influenza (#1) 2025 Zoster (Shingrix) (1 of 2) 2034 Hepatitis C Screening Completed 05/15/2014 Pneumococcal Aged Out 06/09/2014 No longer eligi ble based on patient's age to complete this topic HPV Vaccine (No Doses Required) Completed Hep A Aged Out No longer eligi ble based on patient's age to complete this topic Hib Aged Out No longer eligi ble based on patient's age to complete this topic Meningococcal ACWY Aged Out No longer eligible based on patient's age to complete this topic Procedures * Due to [place] [employer] law, this organization might not be sharing negative HIV tests. Procedure Name Priority Date/Time Associated Diagnosis Comments SUREPATH FPGS PAP REFLEX HPV Routine 06/09/2014 2:30 PM EDT HEPATITIS C AB WITH REFLEX TO RNA PCR, SERUM Routine 05/15/2014 1:18 PM EDT Screening examination for sexually transmitted disease from Last 3 Months or Most Recently Relevant to Health Maintenance Results * Due to [place] [employer] law, this organization might not be sharing negative HIV tests. * SUREPATH??FPGS PAP??REFLEX HPV (06/09/2014 2:30 PM EDT) Clinical information NONE GIVEN [facility] Comment:{CLINICAL INFORMATIO N: {[id number]) Date last menstrual period [id number] [facility] Comment:{LMP: {[id number]) Date of previous PAP smear NONE GIVEN [facility] Comment:{PREV. PAP: {[id number]) Date of previous biopsy NONE GIVEN [facility] Comment:{PREV. BX: {[id number]) Specimen source (Cvx/Vag) Vagina, Cervix, Endocervix [facility] Comment:{SOURCE: {[id number]) Statement of Adequacy (Cvx/Vag) Satisfactory for evaluation. Endocervical/trans formation zone component present. [facility] Comment:{STATEMENT OF ADEQUA CY: {[id number]) Cytology, Pap Smear Negative for intraepithelial lesion or malignancy. [facility] Comment:{INTERPRETATION/RESU LT: {[id number]) Cytology study comment (Cvx/Vag) This Pap test has been evaluated with computer assisted technology. [facility] Comment:{COMMENT: {[id number]) Casing Inspector (Cvx/Vag) MSM, CT(ASCP) [facility] Comment:{CHANNEL PROCESS PLANT OPERATOR: { [id number]) 06/09/2014 2:30 PM EDT 06/10/2014 1:09 AM EDT us Za Guerrero MD PATHOLOGY-INTERFACED Final Resu lt [facility] [address] [facility] [place] [address] * HEPATITIS C ANTIBODY, SERUM (05/15/2014 1:18 PM EDT) Hepatitis C virus Ab NON-REACTI VE NON-REACT CANDICE [facility] Comment:{HEPATITIS C ANTIBOD Y {[id number]) Hepatitis C virus Ab Signal/Cutoff 0.03 <1.00 [facility] Comment:{SIGNAL TO CUT-OFF { [id number]) 05/15/2014 1:18 PM EDT 05/15/2014 10:26 PM EDT Narrative Resulting Agency Comment [id number] Lea Klein MD LABORATORY Final Result [facility] [address] [place] [address] from Last 3 Months or Most Recently Relevant to Health Maintenance Insurance * Guarantor: LUNA DE PAZ Account Type Relation to Patient Date of Phone Billing Address Personal/Family [address] [facility] [address] [place] [address] [employer] Care Teams Foam Molder Relationship Specialty Start Date End Date Unknown Pcp, Non Rmg PCP - General 02/04/16
--- OUTSIDE RECORDS SUMMARY | 2025-06-23 12:05 | XMS_ITS | Encounter Summary ---
Author Organization [facility] Address [address] [place] [address] Care Team Providers Care Lion Tamer Name Role Phone Lea Klein MD Primary Care Provider [phone] Za Guerrero MD Primary Care Provider [phone] Unknown Pcp, Non Rmg Primary Care Provider Unava ilable Encounter Details Date Type Department Care Team (Late st Contact Info) Description 04/09/[address] [facility] Internal Medicine [address] [place] [address] Lea Klein MD [facility] [address] [place] [address] Social History Tobacco Use Types Packs/Day [...] of this encounter Results * Due to [place] state law, this organization might not be sharing negative HIV tests. * XRAY HAND MIN 3 VWS - LEFT FC (04/09/2013 1:55 PM EDT) Anatomical Region Laterality Modality UPPER EXTREMITY Radiographic Cherri ging 04/09/2013 2:54 PM EDT Narrative 04/09/2013 2:54 PM EDT Left hand 3 views No bone, joint, or soft tissue abnormality is seen. Impression: negative. Procedure Note Stephon Wade MD - 04/09/2013 Left hand 3 views No bone, joint, or soft tissue abnormality is seen. Impression: negative. Lea Klein MD IMG XRAY NO CONTRAST ORDERABL ES Final Result documented in this encounter Visit Diagnoses Diagnosis Pain of left hand- Primary Pain in limb Pain of left hand Pain in limb documented in this encounter Care Teams Lion Tamer Relationship Specialty Start Date End Date Lea Klein MD PCP - General Internal Medicine 01/20/13 05/17/14 Za Guerrero MD PCP - General Internal Medicine 05/18/14 02/03/16 Unknown Pcp, Non Rmg PCP - General 02/04/16 documented as of this encounter
--- OUTSIDE RECORDS SUMMARY | 2025-06-23 12:05 | XMS_ITS | Encounter Summary ---
Author Organization [facility] Address [address] [place] [address] Care Team Providers Care Inbound Sales Representative Name Role Phone Za Guerrero MD Primary Care Provider [phone] Unknown Pcp, Non Rmg Primary Care Provider Unava ilable Encounter Details Date Type Department Care Team (Late st Contact Info) Description 05/18/2014 Orders Only [facility] Internal Medicine [address] [place] [phone] Lea Klein MD [facility] [address] [place] [address] Social History Tobacco Use Types Packs/Day Years [...] on filedocumented in this encounter Care Teams Inbound Sales Representative Relationship Specialty Start Date End Date Za Guerrero MD PCP - General Internal Medicine 05/18/14 02/03/16 Unknown Pcp, Non Rmg PCP - General 02/04/16 documented as of this encounter
--- OUTSIDE RECORDS SUMMARY | 2025-06-23 12:06 | XMS_ITS | Encounter Summary ---
Author Organization [facility] Address [address] [place] [address] Care Team Providers Care Budget Examiner Name Role Phone Za Guerrero MD Primary Care Provider [phone] Unknown Pcp, Non Rmg Primary Care Provider Unava ilable Encounter Details Date Type Department Care Team (Late st Contact Info) Description 06/10/2014 Orders Only [facility] Internal Medicine [address] [place] [phone] Za Guerrero MD [address] [place] [address] Social History Tobacco Use Types Packs/Day Years [...] Job Start Date Job End Date [employer] Not on file Not [...] of this encounter Procedures * Due to [place] state law, this organization might not be [...] in this encounter Results * Due to [place] state law, this organization might not be sharing negative HIV tests. * (ABNORMAL) LIPID PANEL WITH REFLEX TO DIRECT LDL (06/10/2014 11:02 AM EDT) Cholesterol 146 125 - 200 mg/dL [facility] Comment:{CHOLESTEROL, TOTAL {[id number]) HDL Cholesterol 38(L) > OR = 46 mg/dL [facility] Comment:{HDL CHOLESTEROL {[id number]) Triglyceride 106 <150 mg/dL [facility] Comment:{TRIGLYCERIDES {[id number]) LDL Cholesterol 87 <130 mg/dL (calc) [facility] Comment: {LDL-CHOLESTEROL {[id number]) Desirable range <100 mg/dL for patients with CHD or diabetes and <70 mg/dL for diabetic patients with known heart disease. CHOL/HDL Ratio 3.8 < OR = 5.0 (calc) [facility] Comment:{CHOL/HDLC RATIO {[id number]) Cholesterol Non-HDL 108 mg/dL (calc) [facility] Comment: {NON HDL CHOLESTEROL {[id number]) Target for non-HDL cholesterol is 30 mg/dL higher than LDL cholesterol target. 06/10/2014 11:0 2 AM EDT 06/10/2014 7:56 PM EDT Narrative Resulting Agency Comment [id number] us Za Guerrero MD LABORATORY Final Result [facility] [address] [place] [address] * BASIC METABOLIC PANEL WITH (GFR) (06/10/2014 11:02 AM EDT) Glucose 93 65 - 99 mg/dL [facility] Comment: {GLUCOSE {[id number]) Fasting reference interval Urea Nitrogen Blood (BUN) 16 7 - 25 mg/dL [facility] Comment:{UREA NITROGEN (BUN) {[id number]) Creatinine 0.64 0.50 - 1.10 mg/dL [facility] Comment:{CREATININE {[id number]) GFR 121 > OR = 60 mL/min/1. 73m2 [facility] Comment:{eGFR NON-AFR. AMERI CAN {[id number]) GFR () 140 > OR = 60 mL/min/1. 73m2 [facility] Comment:{eGFR AMERIC AN {[id number]) BUN/Creatinine Ratio NOT APPLICABLE 6 - (calc) [facility] Comment:{BUN/CREATININE RATI O {[id number]) Sodium 140 135 - 146 mmol/L [facility] Comment:{SODIUM {[id number]) Potassium 4.1 3.5 - 5.3 mmol/L [facility] Comment:{POTASSIUM {[id number]) Chloride 106 98 - 110 mmol/L [facility] Comment:{CHLORIDE {[id number]) Carbon dioxide 24 19 - 30 mmol/L [facility] Comment:{CARBON DIOXIDE {[id number]) Calcium 9.6 8.6 - 10.2 mg/dL [facility] Comment:{CALCIUM {[id number]) 06/10/2014 11:0 2 AM EDT 06/10/2014 [...] needs for GFR calculation. Resulting Agency Comment [id number] us Za Guerrero MD LABORATORY Final Result [facility] [address] [place] [address] * (ABNORMAL) CBC INCLUDES DIFFERENTIAL AND PLATELET COUNT (06/10/2014 11:02 AM EDT) WBC 14.3(H) 3.8 - 10.8 Thousand/ uL [facility] Comment:{WHITE BLOOD CELL CO UNT {[id number]) RBC 4.89 3.80 - 5.10 Million/u L [facility] Comment:{RED BLOOD CELL COUN T {[id number]) Hemoglobin 15.5 11.7 - 15.5 g/dL [facility] Comment:{HEMOGLOBIN {[id number]) Hematocrit 47.9(H) 35.0 - 45.0 % [facility] Comment:{HEMATOCRIT {[id number]) MCV 97.9 80.0 - 100.0 fL [facility] Comment:{MCV {[id number]) MCH 31.7 27.0 - 33.0 pg [facility] Comment:{MCH {[id number]) MCHC 32.3 32.0 - 36.0 g/dL [facility] Comment:{MCHC {[id number]) RDW 14.3 11.0 - 15.0 % [facility] Comment:{RDW {[id number]) PLT 284 140 - 400 Thousand/ uL [facility] Comment:{PLATELET COUNT {[id number]) MPV 9.1 7.5 - 11.5 fL [facility] Comment:{MPV {[id number]) Neutrophils # 84852(H) 1500 - 7800 cells/uL [facility] Comment:{ABSOLUTE NEUTROPHIL S {[id number]) Lymphocytes # 2116 850 - 3900 cells/uL [facility] Comment:{ABSOLUTE LYMPHOCYTE S {[id number]) Monocytes # 601 200 - 950 cells/uL [facility] Comment:{ABSOLUTE MONOCYTES {[id number]) Eosinophils # 186 15 - 500 cells/uL [facility] Comment:{ABSOLUTE EOSINOPHIL S {[id number]) Basophils # 43 0 - 200 cells/uL [facility] Comment:{ABSOLUTE BASOPHILS {[id number]) Neutrophils % 79.4 % [facility] Comment:{NEUTROPHILS {[id number]) Lymphocytes % 14.8 % [facility] Comment:{LYMPHOCYTES {[id number]) Monocytes % 4.2 % [facility] Comment:{MONOCYTES {[id number]) Eosinophils % 1.3 % [facility] Comment:{EOSINOPHILS {[id number]) Basophils % 0.3 % [facility] Comment:{BASOPHILS {[id number]) 06/10/2014 11:0 2 AM EDT 06/10/2014 7:56 PM EDT Narrative Resulting Agency Comment [id number] us Za Guerrero MD LAB SAME DAY RESULT Final Resul t Performing Organization Address City/State/[facility] Co de Phone Number [facility] [address] [place] [address] documented in this encounter Visit Diagnoses Diagnosis Routine general medical examination at a health care facility Screening for deficiency anemia Screening for other and unspecified deficiency anemia Smoking Tobacco use disorder documented in this encounter Care Teams Budget Examiner Relationship Specialty Start Date End Date Za Guerrero MD PCP - General Internal Medicine 05/18/14 02/03/16 Unknown Pcp, Non Rmg PCP - General 02/04/16 documented as of this encounter
--- OUTSIDE RECORDS SUMMARY | 2025-06-23 12:06 | XMS_ITS | Encounter Summary ---
Author Organization [facility] Address [address] [place] [address] Care Team Providers Care Tacker Off Name Role Phone Za Guerrero MD Primary Care Provider [phone] Unknown Pcp, Non Rmg Primary Care Provider Unava ilable Encounter Details Date Type Department Care Team (Late st Contact Info) Description 05/18/2014 Orders Only [facility] Internal Medicine [address] [place] [address] Za Guerrero MD [address] [place] [address] Social History Tobacco Use Types Packs/Day Years [...] on filedocumented in this encounter Care Teams Tacker Off Relationship Specialty Start Date End Date Za Guerrero MD PCP - General Internal Medicine 05/18/14 02/03/16 Unknown Pcp, Non Rmg PCP - General 02/04/16 documented as of this encounter
--- OUTSIDE RECORDS SUMMARY | 2025-06-23 12:06 | XMS_ITS | Encounter Summary ---
Author Organization [facility] Address [address] [place] [address] Care Team Providers Care Drill Grinder Name Role Phone Za Guerrero MD Primary Care Provider Unknown Pcp, Non Rmg Primary Care Provider Unava ilable Encounter Details Date Type Department Care Team (Late st Contact Info) Description 06/09/2014 Orders Only [facility] Internal Medicine [address] [place] [phone] Za Guerrero MD [address] [place] [address] Social History Tobacco Use Types Packs/Day Years [...] Job Start Date Job End Date [employer] Not on file Not on yung e Not on file documented as of this encounter Plan of Treatment Not on file documented as of this encounter Procedures * Due to [place] [employer] law, this organization might not be sharing negative HIV tests. Procedure Name Priority Date/Time Associated Diagnosis Comments PAIN MANAGEMENT PROFILE, URINE (PAINM2) Routine 06/09/2014 3:21 PM EDT Smoking Marijuana smoker Routine general medical examination at a health care facility documented in this encounter Results * Due to [place] [employer] law, this organization might not be sharing negative HIV tests. * (ABNORMAL) PAIN MANAGEMENT PROFILE, URINE (PAINM2) (06/09/2014 3:21 PM EDT) CREATININE 138.1 > or = 20.0 mg/dL [facility] Comment:{Creatinine {[id number]) PH 7.4 4.5 - 9.0 [facility] Comment:{pH {[id number]) OXIDANT NEGATIVE <200 mcg/mL [facility] Comment:{Oxidant {[id number]) Amphetamines (Screen) NEGATIVE <500 ng/mL [facility] Comment:{Amphetamines {[id number]) Barbiturates (Urine) NEGATIVE <300 ng/mL [facility] Comment:{Barbiturates {[id number]) Benzodiazepine And Metabolites, Urine NEGATIVE <100 ng/mL [facility] Comment:{Benzodiazepines {[id number]) Buprenorphine (Suboxone) (Urine) NEGATIVE <5 ng/mL [facility] Comment:{Buprenorphine {[id number]) Benzoylecgonine (Cocaine Metabolite) (Urine) NEGATIVE <150 ng/mL [facility] Comment:{Cocaine Metabolite {[id number]) 6-Monoacetylmorphine (Heroin Metabolite) (Urine) NEGATIVE <10 ng/mL [facility] Comment:{Heroin Metabolite { [id number]) Tetrahydrocannabinol (Urine) POSITIVE(A) <20 ng/mL [facility] Comment:{Marijuana Metabolit e 20 {[id number]) Tetrahydrocannabinol (Urine) 451(H) <5 ng/mL [facility] Comment:{Marijuana Metabolit e {[id number]) MDMA/MDA NEGATIVE <500 ng/mL [facility] Comment:{MDMA/MDA {[id number]) EDDP ( Methadone Metabolite) NEGATIVE <100 ng/mL [facility] Comment:{Methadone Metabolit e {[id number]) Opiates (Urine) NEGATIVE CONFIRMED <100 ng/mL [facility] Comment:{Opiates {[id number]) Codeine (Urine) NEGATIVE <50 ng/mL [facility] Comment:{Codeine {[id number]) Hydrocodone (Urine) NEGATIVE <50 ng/mL [facility] Comment:{Hydrocodone {[id number]) Hydromorphone (Urine) NEGATIVE <50 ng/mL [facility] Comment:{Hydromorphone {[id number]) Morphine (Urine) NEGATIVE <50 ng/mL [facility] Comment:{Morphine {[id number]) Oxycodone (Urine) NEGATIVE <100 ng/mL [facility] Comment:{Oxycodone {[id number]) Phencyclidine (Urine) NEGATIVE <25 ng/mL [facility] Comment:{Phencyclidine {[id number]) Propoxyphene (Urine) NEGATIVE <300 ng/mL [facility] Comment:{Propoxyphene {[id number]) 06/09/2014 3:21 PM EDT 06/09/2014 11:25 PM EDT Za Guerrero MD LABORATORY Final Result [facility] [address] [place] [address] documented in this encounter Visit Diagnoses Diagnosis Smoking Tobacco use disorder Marijuana smoker Cannabis abuse, unspecified Routine general medical examination at a health care facility documented in this encounter Care Teams Drill Grinder Relationship Specialty Start Date End Date Za Guerrero MD PCP - General Internal Medicine 05/18/14 02/03/16 Unknown Pcp, Non Rmg PCP - General 02/04/16 documented as of this encounter
--- OUTSIDE RECORDS SUMMARY | 2025-06-23 12:06 | XMS_ITS | Encounter Summary ---
Author Organization [facility] Address [address] [place] [address] Care Team Providers Care Floral Specialist Name Role Phone Lea Klein MD Primary Care Provider [phone] Za Guerrero MD Primary Care Provider [phone] Unknown Pcp, Non Rmg Primary Care Provider Unava ilable Encounter Details Date Type Department Care Team (Late st Contact Info) Description 01/21/2013 Orders Only [facility] Internal Medicine [address] [place] [address] Lea Klein MD [facility] [address] [place] [address] Social History Tobacco Use Types Packs/Day [...] [facility] Comment:{WHITE BLOOD CELL CO UNT {[id number]) RBC 4.47 3.80 - 5.10 Million/u L [facility] Comment:{RED BLOOD CELL COUN T {[id number]) Hemoglobin 12.9 11.7 - 15.5 g/dL [facility] Comment:{HEMOGLOBIN {[id number]) Hematocrit 40.8 35.0 - 45.0 % [facility] Comment:{HEMATOCRIT {[id number]) MCV 91.4 80.0 - 100.0 fL [facility] Comment:{MCV {[id number]) MCH 28.9 27.0 - 33.0 pg [facility] Comment:{MCH {[id number]) MCHC 31.6(L) 32.0 - 36.0 g/dL [facility] Comment:{MCHC {[id number]) RDW 16.0(H) 11.0 - 15.0 % [facility] Comment:{RDW {[id number]) PLT 279 140 - 400 Thousand/ uL [facility] Comment:{PLATELET COUNT {[id number]) MPV 9.1 7.5 - 11.5 fL [facility] Comment:{MPV {[id number]) Neutrophils # 9015(H) 1500 - 7800 cells/uL [facility] Comment:{ABSOLUTE NEUTROPHIL S {[id number]) Lymphocytes # 2207 850 - 3900 cells/uL [facility] Comment:{ABSOLUTE LYMPHOCYTE S {[id number]) Monocytes # 460 200 - 950 cells/uL [facility] Comment:{ABSOLUTE MONOCYTES {[id number]) Eosinophils # 94 15 - 500 cells/uL [facility] Comment:{ABSOLUTE EOSINOPHIL S {[id number]) Basophils # 24 0 - 200 cells/uL [facility] Comment:{ABSOLUTE BASOPHILS {[id number]) Neutrophils % 76.4 % [facility] Comment:{NEUTROPHILS {[id number]) Lymphocytes % 18.7 % [facility] Comment:{LYMPHOCYTES {[id number]) Monocytes % 3.9 % [facility] Comment:{MONOCYTES {[id number]) Eosinophils % 0.8 % [facility] Comment:{EOSINOPHILS {[id number]) Basophils % 0.2 % [facility] Comment:{BASOPHILS {[id number]) 02/12/2013 2:43 PM EDT 02/13/2013 1:03 AM EDT Narrative Resulting Agency Comment [id number] Lea Klein MD LAB SAME DAY RESULT Final Res ult Performing Organization Address [facility] Co de Phone Number [facility] [address] [place] [address] * THYROID STIMULATING HORMONE (TSH) WITH FREE T4 REFLEX, SERUM (02/12/2013 2:43 PM EDT) TSH 0.74 mIU/L [facility] Comment: {TSH W/REFLEX TO FT4 {[id number]) Reference Range > or = 20 Years 0.40-4.50 Ranges First trimester 0.26-2.66 Second trimester 0.55-2.73 Third trimester 0.43-2.91 02/12/2013 2:43 PM EDT 02/13/2013 1:03 AM EDT Narrative Resulting Agency Comment [id number] Lea Klein MD LABORATORY Final Result Performing Organization Address [facility] Co de Phone Number [facility] [address] [place] [phone] * HCG, TOTAL, QL (02/12/2013 2:43 PM EDT) HCG, Qualitative (Screen) NEGATIVE [facility] Comment: {HCG, TOTAL, QL {[id number]) Reference Range Non-: Negative : Positive 02/12/2013 2:43 PM EDT 02/13/2013 1:03 AM EDT Narrative Resulting Agency Comment [id number] Lea Klein MD LAB SAME DAY RESULT Final Res ult Performing Organization Address [facility] Co de Phone Number [facility] [address] [place] [address] documented in this encounter Visit Diagnoses Diagnosis Menorrhagia- Primary Excessive or frequent menstruation documented in this encounter Care Teams Floral Specialist Relationship Specialty Start Date End Date Lea Klein MD PCP - General Internal Medicine 01/20/13 05/17/14 Za Guerrero MD PCP - General Internal Medicine 05/18/14 02/03/16 Unknown Pcp, Non Rmg PCP - General 02/04/16 documented as of this encounter
--- OUTSIDE RECORDS SUMMARY | 2025-06-23 12:06 | XMS_ITS | Encounter Summary ---
Author Organization [facility] Address [address] [place] [address] Care Team Providers Care Pole Inspector Name Role Phone Lea Klein MD Primary Care Provider [phone] Za Guerrero MD Primary Care Provider [phone] Unknown Pcp, Non [facility] Primary Care Provider Unava ilable Encounter Details Date Type Department Care Team (Late st Contact Info) Description 02/12/2013 Orders Only [facility] Internal Medicine [address] [place] [address] Lea Klein MD [facility] [address] [place] [id number] Social History Tobacco Use Types Packs/Day [...] [facility] Comment:{WHITE BLOOD CELL CO UNT {[id number]) RBC 4.47 3.80 - 5.10 Million/u L [facility] Comment:{RED BLOOD CELL COUN T {[id number]) Hemoglobin 12.9 11.7 - 15.5 g/dL [facility] Comment:{HEMOGLOBIN {[id number]) Hematocrit 40.8 35.0 - 45.0 % [facility] Comment:{HEMATOCRIT {[id number]) MCV 91.4 80.0 - 100.0 fL [facility] Comment:{MCV {[id number]) MCH 28.9 27.0 - 33.0 pg [facility] Comment:{MCH {[id number]) MCHC 31.6(L) 32.0 - 36.0 g/dL [facility] Comment:{MCHC {[id number]) RDW 16.0(H) 11.0 - 15.0 % [facility] Comment:{RDW {[id number]) PLT 279 140 - 400 Thousand/ uL [facility] Comment:{PLATELET COUNT {[id number]) MPV 9.1 7.5 - 11.5 fL [facility] Comment:{MPV {[id number]) Neutrophils # 9015(H) 1500 - 7800 cells/uL [facility] Comment:{ABSOLUTE NEUTROPHIL S {[id number]) Lymphocytes # 2207 850 - 3900 cells/uL [facility] Comment:{ABSOLUTE LYMPHOCYTE S {[id number]) Monocytes # 460 200 - 950 cells/uL [facility] Comment:{ABSOLUTE MONOCYTES {[id number]) Eosinophils # 94 15 - 500 cells/uL [facility] Comment:{ABSOLUTE EOSINOPHIL S {[id number]) Basophils # 24 0 - 200 cells/uL [facility] Comment:{ABSOLUTE BASOPHILS {[id number]) Neutrophils % 76.4 % [facility] Comment:{NEUTROPHILS {[id number]) Lymphocytes % 18.7 % [facility] Comment:{LYMPHOCYTES {[id number]) Monocytes % 3.9 % [facility] Comment:{MONOCYTES {[id number]) Eosinophils % 0.8 % [facility] Comment:{EOSINOPHILS {[id number]) Basophils % 0.2 % [facility] Comment:{BASOPHILS {[id number]) 02/12/2013 2:43 PM EDT 02/13/2013 1:03 AM EDT Narrative Resulting Agency Comment [id number] Lea Klein MD LAB SAME DAY RESULT Final Res ult Performing Organization Address [facility] Co de Phone Number [facility] [address] [place] [address] * THYROID STIMULATING HORMONE (TSH) WITH FREE T4 REFLEX, SERUM (02/12/2013 2:43 PM EDT) TSH 0.74 mIU/L [facility] Comment: {TSH W/REFLEX TO FT4 {[id number]) Reference Range > or = 20 Years 0.40-4.50 Ranges First trimester 0.26-2.66 Second trimester 0.55-2.73 Third trimester 0.43-2.91 02/12/2013 2:43 PM EDT 02/13/2013 1:03 AM EDT Narrative Resulting Agency Comment [id number] Lea Klein MD LABORATORY Final Result Performing Organization Address City/[facility] Co de Phone Number [facility] [address] [place] [address] * HCG, TOTAL, QL (02/12/2013 2:43 PM EDT) HCG, Qualitative (Screen) NEGATIVE [facility] Comment: {HCG, TOTAL, QL {[id number]) Reference Range Non-: Negative : Positive 02/12/2013 2:43 PM EDT 02/13/2013 1:03 AM EDT Narrative Resulting Agency Comment [id number] Lea Klein MD LAB SAME DAY RESULT Final Res ult [facility] [address] [place] [address] documented in this encounter Visit Diagnoses Diagnosis Menorrhagia Excessive or frequent menstruation documented in this encounter Care Teams Pole Inspector Relationship Specialty Start Date End Date Lea Klein MD PCP - General Internal Medicine 01/20/13 05/17/14 Za Guerrero MD PCP - General Internal Medicine 05/18/14 02/03/16 Unknown Pcp, Non [facility] PCP - General 02/04/16 documented as of this encounter
[2025-06-23 13:32] LABS: Cannabinoid Screen Urine Not Detected (Not Detect)
[2025-06-24 06:53] LABS: Hepatitis B Surface Ab Qnt 142 mIU/mL (> OR = 10)
[2025-06-24 18:03] LABS: Rubeola IgG (Measles) 208.00 AU/mL
[2025-06-26 10:09] LABS: TS Negative Control Passed; TS Panel A 0; TS Panel B 0; TS Positive Control Passed; TSpotTB Negative (Negative)
== END 2025-06-23 10:35 | disposition home or self-care (01) ==
LOC: HO.HMGCLDS 10:34
PROVIDERS: PCP Internal Medicine; Visit Provider Internal Medicine
DX: Z02.1 Encounter for pre-employment examination (principal); Z11.1 Encounter for screening for respiratory tuberculosis; Z51.81 Encounter for therapeutic drug level monitoring
CPT/HCPCS: 80307; 86317; 86481; 86735; 86762; 86765; 86787